=== PATIENT | male | born 1960 | race Caucasian/White ===

== ENCOUNTER → 2016-06-09 | Outpatient (CLI) | payer MEDICARE ==
[2016-06-09 12:50] LABS: ABSOLUTE EOSINOPHILS # (AUTO) 0.2 10^3/uL (0.0-0.6); ABSOLUTE LYMPHOCYTES (AUTO) 1.5 10^3/uL (0.5-4.7); ABSOLUTE MONOCYTES (AUTO) 0.5 10^3/uL (0.1-1.4); ABSOLUTE NEUT (AUTO) 3.8 10^3/uL (1.7-8.2); BASOPHILS % (AUTO) 0.5 % (0-2); EOSINOPHILS % (AUTO) 3.4 % (0-6); HEMATOCRIT 43.8 % (37.9-51.0); HEMOGLOBIN 14.7 g/dL (13.5-17.0); HGB HCT DIFFERENCE 0.3; LYMPHOCYTES % (AUTO) 24.2 % (13-45); MEAN CORPUSCULAR HEMOGLOBIN 28.5 pg (27.0-33.4); MEAN CORPUSCULAR HGB CONC 33.5 g/dL (32.0-36.0); MEAN CORPUSCULAR VOLUME 85 fl (80-97); MONOCYTES % (AUTO) 8.9 % (3-13); RED BLOOD COUNT 5.15 10^6/uL (4.35-5.55); RED CELL DISTRIBUTION WIDTH 13.6 % (11.5-14.0)
[2016-06-09 13:24] LABS: ALANINE AMINOTRANSFERASE 29 U/L (21-72); ALBUMIN 4.5 g/dL (3.5-5.0); ALKALINE PHOSPHATASE 73 U/L (38-126); ANION GAP 14 (5-19); ASPARTATE AMINO TRANSFERASE 25 U/L (17-59); BILIRUBIN,TOTAL 0.8 mg/dL (0.2-1.3); BLOOD UREA NITROGEN 20 mg/dL (7-20); C-REACTIVE PROTEIN < 5.0 mg/L (<10.0); CALCIUM 9.3 mg/dL (8.4-10.2); CARBON DIOXIDE 28 mmol/L (22-30); CHLORIDE 99 mmol/L (98-107); CREATININE RESULT 1.04 mg/dL (0.52-1.25); GLUCOSE 201 mg/dL (75-110); POTASSIUM 4.4 mmol/L (3.6-5.0); SODIUM 141.1 mmol/L (137-145)
[2016-06-09 13:28] LABS: ERYTHROCYTE SEDIMENTATION RATE 24 mm/hr (0-20)
== END ==
LOC: OD 12:02
PROVIDERS: ATTEND Nurse Practitioner Family
DX: Z01.818 Encounter for other preprocedural examination (principal); L97.322 Non-pressure chronic ulcer of left ankle with fat layer exposed
CPT/HCPCS: 36415; 71020; 80053; 85025; 85652; 86140

== ENCOUNTER 2017-05-24 10:05 | Emergency (ER) | payer MEDICARE ==
[2017-05-24 10:19] VITALS: BP 118/67
[2017-05-24] MEDS ORDERED: HYDROCODONE/ACETAMINOPHEN 5-325 MG TABLET ONE (12:13)
--- NOTE | 2017-05-25 09:58 | RADIOLOGY REPORT (SQ) ---
EXAM DESCRIPTION: SHOULDER LEFT 2 OR MORE VIEWS COMPLETED DATE/TIME: 05/25/2017 12:12 am REASON FOR STUDY: FALL, LEFT SHOULDER PAIN COMPARISON: None. NUMBER OF VIEWS: Three views. TECHNIQUE: Internal rotation, external rotation, and Y view images acquired of the left shoulder. LIMITATIONS: None. FINDINGS: MINERALIZATION: Normal. BONES: No acute fracture or dislocation. No worrisome bone lesions. JOINTS: No dislocation. VISUALIZED LUNGS AND RIBS: No pneumothorax. No rib fracture. SOFT TISSUES: No radiopaque foreign body. OTHER: Cardiac pacer. IMPRESSION: NO RADIOGRAPHIC EVIDENCE OF ACUTE INJURY. TECHNICAL DOCUMENTATION: JOB ID: [id number] [employer]- All Rights Reserved
== END 2017-05-24 14:30 | disposition home or self-care (01) ==
LOC: ER 10:05
DX: S43.402A Unspecified sprain of left shoulder joint, initial encounter (principal); W00.0XXA Fall on same level due to ice and snow, initial encounter; Y92.410 Unspecified street and highway as the place of occurrence of the external cause; E11.9 Type 2 diabetes mellitus without complications; I10 Essential (primary) hypertension; I25.2 Old myocardial infarction; Z95.1 Presence of aortocoronary bypass graft
CPT/HCPCS: 99283

== ENCOUNTER 2017-06-10 10:53 | Day surgery (SDC) | payer MEDICARE ==
[~2017-06-10 10:53] MED LIST: KETOROLAC TROMETHAMINE 0.45% 4 DROP/0.4 ML DROPERETTE OD PRN
[2017-06-10] MEDS ORDERED: EPINEPHRINE INJ/PF 1 MG/1 ML AMPULE ONE (11:03)
[2017-06-10] MEDS ORDERED: CHONDR SU A NA/HYALUR INTRAOC KIT (SURGICARE) ONE (11:04)
[2017-06-10] MEDS ORDERED: LIDOCAINE 1% INJ-PF (10 MG/ML) 30 ML SDV ONE (11:04)
[2017-06-10] MEDS: TROPICAMIDE 1% OPH SOLN 3 ML OD PRN ×3 (11:16→11:36)
[2017-06-10] MEDS: BESIFLOXACIN HCL 0.6% OPH SUSP 5 ML BOTTLE OD PRN ×4 (11:16→12:21)
[2017-06-10] MEDS: CYCLOPENTOLATE 0.2%/PHENYLEPHRINE 1% OPH SOLN 2 ML OD PRN ×3 (11:16→11:36)
[2017-06-10] MEDS: TETRACAINE HCL 0.5% OPH SOLN 0.6 ML DROPERETTE OD PRN ×3 (11:17→12:03)
[2017-06-10] MEDS ORDERED: ONDANSETRON HCL INJ/PF 4 MG/2 ML SDV ONE (11:50)
[2017-06-10] MEDS ORDERED: FENTANYL CITRATE INJ/PF 100 MCG/2 ML AMPUL ONE (11:50)
[2017-06-10] MEDS ORDERED: MIDAZOLAM 2 MG/2 ML INJ ONE (11:50)
[2017-06-10] MEDS: TOBRAMYCIN SULFATE/DEXAMETH OPH OINTMENT 3.5 GM ONE ×2 (12:21)
[2017-06-10] MEDS ORDERED: LIDOCAINE 2% INJ-PF (20 MG/ML) 10 ML AMPUL ONE (12:26)
== END 2017-06-10 13:35 | disposition home or self-care (01) ==
LOC: SC 10:53
PROVIDERS: ATTEND Ophthalmology
PROC: 08RJ3JZ Replacement of Right Lens with Synthetic Substitute, Percutaneous Approach (ICD-10-PCS; principal; 2017-06-10 12:00)
DX: H25.11 Age-related nuclear cataract, right eye (principal); I25.10 Atherosclerotic heart disease of native coronary artery without angina pectoris; E11.9 Type 2 diabetes mellitus without complications; I10 Essential (primary) hypertension; E78.00 Pure hypercholesterolemia, unspecified; K21.9 Gastro-esophageal reflux disease without esophagitis; Z79.82 Long term (current) use of aspirin; Z79.84 Long term (current) use of oral hypoglycemic drugs; Z79.4 Long term (current) use of insulin; I25.2 Old myocardial infarction; Z95.810 Presence of automatic (implantable) cardiac defibrillator
CPT/HCPCS: 66984; 82962; V2630; J2250; J3490 ×4; A9270; J0171; J3010; J2405; 142

== ENCOUNTER 2017-06-24 09:28 | Day surgery (SDC) | payer MEDICARE ==
[~2017-06-24 09:28] MED LIST changes: +CHONDR SU A NA/HYALUR INTRAOC KIT (SURGICARE) ONE; +EPINEPHRINE INJ/PF 1 MG/1 ML AMPULE ONE; -KETOROLAC TROMETHAMINE 0.45% 4 DROP/0.4 ML DROPERETTE OD PRN; +KETOROLAC TROMETHAMINE 0.45% 4 DROP/0.4 ML DROPERETTE OS PRN; +LIDOCAINE 1% INJ-PF (10 MG/ML) 30 ML SDV ONE; +TOBRAMYCIN SULFATE/DEXAMETH OPH OINTMENT 3.5 GM ONE
[2017-06-24] MEDS: CYCLOPENTOLATE 0.2%/PHENYLEPHRINE 1% OPH SOLN 2 ML OS PRN ×3 (09:40→10:31)
[2017-06-24] MEDS: TROPICAMIDE 1% OPH SOLN 3 ML OS PRN ×3 (09:40→10:31)
[2017-06-24] MEDS: BESIFLOXACIN HCL 0.6% OPH SUSP 5 ML BOTTLE OS PRN ×3 (09:41→11:13)
[2017-06-24] MEDS: TETRACAINE HCL 0.5% OPH SOLN 0.6 ML DROPERETTE OS PRN ×3 (09:42→10:51)
[2017-06-24] MEDS ORDERED: MIDAZOLAM 2 MG/2 ML INJ ONE ×2 (10:47)
== END 2017-06-24 11:50 | disposition home or self-care (01) ==
LOC: SC 09:28
PROVIDERS: ATTEND Ophthalmology
PROC: 08RK3JZ Replacement of Left Lens with Synthetic Substitute, Percutaneous Approach (ICD-10-PCS; principal; 2017-06-24 10:30)
DX: H25.12 Age-related nuclear cataract, left eye (principal); Z98.41 Cataract extraction status, right eye; I25.10 Atherosclerotic heart disease of native coronary artery without angina pectoris; E78.00 Pure hypercholesterolemia, unspecified; I10 Essential (primary) hypertension; E11.9 Type 2 diabetes mellitus without complications; Z79.82 Long term (current) use of aspirin; Z79.899 Other long term (current) drug therapy; Z79.84 Long term (current) use of oral hypoglycemic drugs; Z79.4 Long term (current) use of insulin
CPT/HCPCS: 66984; 82962; V2630; J2250; J3490 ×3; A9270; J0171; 142

== ENCOUNTER → 2017-08-06 | Day surgery (SDC) | payer MEDICARE ==
--- NOTE | 2017-08-06 15:16 | RADIOLOGY REPORT (SQ) ---
EXAM DESCRIPTION: ARTHRO SHOULDER INJECTION; FLUORO/NEEDLE PLACEMENT COMPLETED DATE/TIME: 08/06/2017 2:42 pm REASON FOR STUDY: INCOMPLETE ROTATOR CUFF TEAR OR RUPTURE, LT SHOULDER (M75.112) M75.112 INCOMPLETE ROTATR-CUFF TEAR/RUPTR OF L SHOULDER, NOT COMPARISON: Left shoulder films 05/24/2017 FLUOROSCOPY TIME: 40 seconds 2 digital radiographic images saved to PACS. LIMITATIONS: None. PROCEDURE: Procedure, risks, benefits and alternatives explained to patient who then gave written co nsent. The posterior left shoulder was marked and a time out was called for correct procedure verific ation. Posterior entry site marked using fluoroscopic guidance. Shoulder prepped and draped using s terile technique. Local anesthesia achieved using 5 mL of 1% lidocaine injection. 22 gauge spinal n eedle introduced into the joint space under direct fluoroscopic visualization. Non-ionic contrast ins tilled to confirm intra-articular position. Dilute Omnipaque 300 solution then injected. Needle sahil cory and entry site covered with sterile bandage. No immediate complications noted. TECHNIQUE: Digital images acquired during fluoroscopy and stored on PACS. Patient immediately take n to the MR suite for additional imaging. INJECTION LOCATION: Posterior left glenohumeral joint CONTRAST TYPE AND AMOUNT: 10 mL of dilute Omnipaque 300 IMPRESSION: SUCCESSFUL NEEDLE PLACEMENT AND INJECTION FOR LEFT SHOULDER CT ARTHROGRAM USING POSTERIO R APPROACH. COMMENT: Patient has a defibrillator Quality ID [id number]: Final reports for procedures using fluoroscopy that document radiation exposure wilda gaston, or exposure time and number of fluorographic images (if radiation exposure indices are not avail able) TECHNICAL DOCUMENTATION: JOB ID: [id number] [employer]- All Rights Reserved Reading location - IP/workstation name: [facility]
--- NOTE | 2017-08-06 15:16 | RADIOLOGY REPORT (SQ) ---
EXAM DESCRIPTION: ARTHRO SHOULDER INJECTION; FLUORO/NEEDLE PLACEMENT COMPLETED DATE/TIME: 08/06/2017 2:42 pm REASON FOR STUDY: INCOMPLETE ROTATOR CUFF TEAR OR RUPTURE, LT SHOULDER (M75.112) M75.112 INCOMPLETE ROTATR-CUFF TEAR/RUPTR OF L SHOULDER, NOT COMPARISON: Left shoulder films 05/24/2017 FLUOROSCOPY TIME: 40 seconds 2 digital radiographic images saved to PACS. LIMITATIONS: None. PROCEDURE: Procedure, risks, benefits and alternatives explained to patient who then gave written co nsent. The posterior left shoulder was marked and a time out was called for correct procedure verific ation. Posterior entry site marked using fluoroscopic guidance. Shoulder prepped and draped using s terile technique. Local anesthesia achieved using 5 mL of 1% lidocaine injection. 22 gauge spinal n eedle introduced into the joint space under direct fluoroscopic visualization. Non-ionic contrast ins tilled to confirm intra-articular position. Dilute Omnipaque 300 solution then injected. Needle sahil cory and entry site covered with sterile bandage. No immediate complications noted. TECHNIQUE: Digital images acquired during fluoroscopy and stored on PACS. Patient immediately take n to the MR suite for additional imaging. INJECTION LOCATION: Posterior left glenohumeral joint CONTRAST TYPE AND AMOUNT: 10 mL of dilute Omnipaque 300 IMPRESSION: SUCCESSFUL NEEDLE PLACEMENT AND INJECTION FOR LEFT SHOULDER CT ARTHROGRAM USING POSTERIO R APPROACH. COMMENT: Patient has a defibrillator Quality ID [id number]: Final reports for procedures using fluoroscopy that document radiation exposure wilda gaston, or exposure time and number of fluorographic images (if radiation exposure indices are not avail able) TECHNICAL DOCUMENTATION: JOB ID: [id number] [employer]- All Rights Reserved Reading location - IP/workstation name: [facility]
--- NOTE | 2017-08-06 15:31 | RADIOLOGY REPORT (SQ) ---
EXAM DESCRIPTION: CT LT UPPER EXTREMITY WITH COMPLETED DATE/TIME: 08/06/2017 2:48 pm REASON FOR STUDY: INCOMPLETE ROTATOR CUFF TEAR OR RUPTURE, LT SHOULDER (M75.112) M75.112 INCOMPLETE ROTATR-CUFF TEAR/RUPTR OF L SHOULDER, NOT COMPARISON: None. TECHNIQUE: Axial imaging performed through the leftshoulder with reformatted oblique coronal and obl ique sagittal imaging windowed for bone and soft tissues. All CT scanners at this facility use dose modulation, iterative reconstruction, and/or weight based d osing when appropriate to reduce radiation dose to as low as reasonably achievable (ALARA). [facility]: Dose Right [facility]: CareDose [facility]: Dose Right [facility]: Teradose 4D [facility]: [place] [employer] RADIATION DOSE: CT Rad equipment meets quality standard of care and radiation dose reduction techniq ues were employed. CTDIvol: 24.4 mGy. DLP: 600 mGy-cm. mGy. LIMITATIONS: None. FINDINGS: SOFT TISSUES: No masses or adenopathy BONY ARCHITECTURE: No fracture. No lytic or blastic lesions. Bones are osteopenic. GLENOHUMERAL JOINT: No malalignment. Mild chondromalacia with humeral head bony spurring. ACROMION AND AC JOINT: Type 2 acromion. Mild acromioclavicular joint bony spurring. ROTATOR CUFF: There is a small full-thickness tear along the anterior edge supraspinatus tendon, allo wing intra-articular contrast to spread into the subacromial/ subdeltoid bursa. Anterior edge supras pinatus tendon tear is best shown on coronal images 19-26.Infraspinatus, subscapularis are intact. GLENOID, LABRUM AND BICEPS: Intra-articular long head biceps tendon is intact. No gross labral tear or paralabral cyst. OTHER: No other significant finding. IMPRESSION: Small full-thickness tear anterior attachment, supraspinatus tendon TECHNICAL DOCUMENTATION: JOB ID: [id number] Quality ID # [id number]: Final reports with documentation of one or more dose reduction techniques (e.g., Au tomated exposure control, adjustment of the mA and/or kV according to patient size, use of iterative reconstruction technique) 2010 [employer]- All Rights Reserved Reading location - IP/workstation name: [facility]
== END ==
LOC: RAD 13:05
PROVIDERS: ATTEND Orthopaedic Surgery
DX: M75.112 Incomplete rotator cuff tear or rupture of left shoulder, not specified as traumatic (principal)
CPT/HCPCS: 23350; 77002

== ENCOUNTER 2018-05-27 11:13 | Inpatient (IN) | payer MEDICARE ==
--- NOTE | 2018-05-27 11:34 | ER Document Report ---
ED Medical Screen (RME) - General Chief Complaint: Abnormal Lab Results Stated Complaint: ABNORMAL LABS Time Seen by Provider: 05/27/18 11:29 Notes: 57 years old male presents today with right foot redness swelling the last few days. With a history of diabetes. Cellulitis of the right foot TRAVEL OUTSIDE OF THE [place] IN LAST 30 DAYS: No - Related Data Allergies/Adverse Reactions: No Known Allergies Allergy (Verified 05/27/18 11:15) Past Medical History - Past Medical History Cardiac Medical History: Reports: Hx Coronary Artery Disease, Hx Heart Attack - 2007, TRIPLE BYPASS, DEFIB PLACEMENT 2014, Hx Hypercholesterolemia, Hx Hypertension - MEDICATED Pulmonary Medical History: Denies: Hx Asthma, Hx Bronchitis, Hx COPD, Hx Pneumonia Neurological Medical History: Denies: Hx Cerebrovascular Accident, Hx Seizures Endocrine Medical History: Reports: Hx Diabetes Mellitus Type 2 - metformin GI Medical History: Denies: Hx Hepatitis, Hx Hiatal Hernia, Hx Ulcer Musculoskeltal Medical History: Denies Hx Arthritis Psychiatric Medical History: Reports: Hx Depression Infectious Medical History: Denies: Hx Hepatitis Past Surgical History: Reports: Hx Cardiac Catheterization - CABG, Hx Cardiac Surgery - open heart - triple bypass 2007, Hx Coronary Artery Bypass Graft, Hx Open Heart Surgery - 11/2007, Hx Orthopedic Surgery - left hand. Denies: Hx Pacemaker - Immunizations Hx Diphtheria, Pertussis, Tetanus Vaccination: Yes - 2015 Physical Exam - Vital signs Vitals: Temp Pulse Resp BP Pulse Ox 99.2 F 79 16 100/60 100 05/27/18 11:18 05/27/18 11:18 05/27/18 11:18 05/27/18 11:18 05/27/18 11:18 Course - Vital Signs Vital signs: Temp Pulse Resp BP Pulse Ox 99.2 F 79 16 100/60 100 05/27/18 11:18 05/27/18 11:18 05/27/18 11:18 05/27/18 11:18 05/27/18 11:18 Doctor's Discharge - Discharge Referrals: ROMINA NICOLE MD [Primary Care Provider] - Follow up as needed
--- NOTE | 2018-05-27 12:16 | RADIOLOGY REPORT (SQ) ---
EXAM DESCRIPTION: FOOT RIGHT COMPLETE COMPLETED DATE/TIME: 05/27/2018 11:59 am REASON FOR STUDY: Osteomyelitis COMPARISON: None. NUMBER OF VIEWS: Three views. TECHNIQUE: AP, lateral and oblique radiographic images acquired of the right foot. LIMITATIONS: None. FINDINGS: Periarticular subchondral cyst formation talonavicular joint, intertarsal and tarsometatar steven joints. No active periosteal reaction or foreign body. Diffuse swelling. 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 No obvious osteomyelitis. TECHNICAL DOCUMENTATION: JOB ID: [id number] [employer] All Rights Reserved Reading location - IP/workstation name: [email or web address]
[2018-05-27 13:00] LABS: ABSOLUTE EOSINOPHILS # (AUTO) 0.1 10^3/uL (0.0-0.6); ABSOLUTE LYMPHOCYTES (AUTO) 1.1 10^3/uL (0.5-4.7); ABSOLUTE MONOCYTES (AUTO) 0.8 10^3/uL (0.1-1.4); ABSOLUTE NEUT (AUTO) 7.6 10^3/uL (1.7-8.2); BASOPHILS % (AUTO) 0.4 % (0-2); EOSINOPHILS % (AUTO) 0.7 % (0-6); HEMATOCRIT 41.5 % (37.9-51.0); HEMOGLOBIN 14.4 g/dL (13.5-17.0); LYMPHOCYTES % (AUTO) 11.5 % (13-45); MEAN CORPUSCULAR HEMOGLOBIN 29.6 pg (27.0-33.4); MEAN CORPUSCULAR HGB CONC 34.6 g/dL (32.0-36.0); MEAN CORPUSCULAR VOLUME 86 fl (80-97); MONOCYTES % (AUTO) 8.4 % (3-13); PLATELET COUNT 259 10^3/uL (150-450); RED BLOOD COUNT 4.85 10^6/uL (4.35-5.55); RED CELL DISTRIBUTION WIDTH 13.4 % (11.5-14.0); TOTAL CELLS COUNTED % (AUTO) 100 %; WHITE BLOOD COUNT 9.6 10^3/uL (4.0-10.5)
[2018-05-27 13:26] LABS: ALANINE AMINOTRANSFERASE 19 U/L (21-72); ALBUMIN 3.8 g/dL (3.5-5.0); ALKALINE PHOSPHATASE 91 U/L (38-126); ANION GAP 11 (5-19); ASPARTATE AMINO TRANSFERASE 16 U/L (17-59); BILIRUBIN,DIRECT 0.2 mg/dL (0.0-0.4); BILIRUBIN,TOTAL 0.8 mg/dL (0.2-1.3); BLOOD UREA NITROGEN 22 mg/dL (7-20); CARBON DIOXIDE 27 mmol/L (22-30); CHLORIDE 96 mmol/L (98-107); GLUCOSE 239 mg/dL (75-110); POTASSIUM 4.3 mmol/L (3.6-5.0); SODIUM 134.1 mmol/L (137-145); TOTAL PROTEIN 6.4 g/dL (6.3-8.2)
--- NOTE | 2018-05-27 14:36 | ER Document Report ---
ED Extremity Problem, Lower - General Chief Complaint: Abnormal Lab Results Stated Complaint: ABNORMAL LABS Time Seen by Provider: 05/27/18 11:29 Notes: Patient is an insulin-dependent diabetic was referred here for an infection in his right foot. 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 During the week, his foot has swollen and he has developed a blister on the top of the toe which is opened and drained. He went to a local clinic yesterday and was given a gram of Rocephin IM and put on Bactrim DS which he took yesterday twice, as prescribed. He went back to the same clinic this morning and had another injection of Rocephin 1 g IM but was advised to come here because the wound does not appear to be showing any healing with outpatient treatment. TRAVEL OUTSIDE OF THE [place] IN LAST 30 DAYS: No - Related Data Allergies/Adverse Reactions: No Known Allergies Allergy (Verified 05/27/18 11:15) Past Medical History - Social History Smoking Status: Former Smoker Chew tobacco use (# tins/day): No Frequency of alcohol use: None Drug Abuse: None Family History: Reviewed & Not Pertinent, CAD Patient has suicidal ideation: No Patient has homicidal ideation: No - Past Medical History Cardiac Medical History: Reports: Hx Coronary Artery Disease, Hx Heart Attack - 2007, TRIPLE BYPASS, DEFIB PLACEMENT 2014, Hx Hypercholesterolemia, Hx Hypertension - MEDICATED, Other - Defibrillator Endocrine Medical History: Reports: Hx Diabetes Mellitus Type 1, Hx Diabetes Mellitus Type 2 - metformin Musculoskeletal Medical History: Denies Hx Arthritis Psychiatric Medical History: Reports: Hx Depression Infectious Medical History: Denies: Hx Hepatitis Past Surgical History: Reports: Hx Cardiac Catheterization - CABG, Hx Cardiac Surgery - open heart - triple bypass 2007, Hx Coronary Artery Bypass Graft, Hx Open Heart Surgery - 11/2007, Hx Orthopedic Surgery - left hand. Denies: Hx Pacemaker - Immunizations Hx Diphtheria, Pertussis, Tetanus Vaccination: Yes - 2015 Review of Systems - Review of Systems Notes: REVIEW OF SYSTEMS: CONSTITUTIONAL : Denies fever. EENT: Denies eye, ear, nose or mouth or throat pain or other symptoms. CARDIOVASCULAR: Denies chest pain. RESPIRATORY: Has had some cough recently. Not much congestion or shortness of breath. GASTROINTESTINAL: Denies abdominal pain or nausea, vomiting, or diarrhea. GENITOURINARY: Denies difficulty or painful urinating, urinary frequency, blood in urine. MUSCULOSKELETAL: Denies back or neck pain. Denies joint pain or swelling. See HPI. SKIN: Denies rash or skin lesions. See HPI. NEUROLOGICAL: Denies LOC or altered mental status. Denies headache. Denies sensory loss or motor deficits. ALL OTHER SYSTEMS REVIEWED AND NEGATIVE. Physical Exam - Vital signs Vitals: Temp Pulse Resp BP Pulse Ox 99.2 F 79 16 100/60 100 05/27/18 11:18 05/27/18 11:18 05/27/18 11:18 05/27/18 11:18 05/27/18 11:18 Interpretation: Normal Notes: PHYSICAL EXAMINATION: GENERAL: Well-appearing, in no acute distress. HEAD: Atraumatic, normocephalic. EYES: Pupils equal round and reactive to light, extraocular movements intact. NECK: Normal range of motion, supple. LUNGS: Breath sounds clear and equal bilaterally. HEART: Regular rate and rhythm without murmurs. ABDOMEN: Soft, nontender. No guarding or rebound. No masses. BACK: No tenderness throughout entire back. EXTREMITIES: Normal range of motion without pain. Patient has swollen right foot, primarily over the lateral half. It is erythematous and warm to the touch. Over the proximal fifth toe of the right foot the patient has a 3 cm denuded area that is oozing liquid. Patient says he has no feeling in his lower extremities due to his peripheral neuropathy. Flat-footed appearance to the right foot. Patient says this is been that way his entire life. However he does describe having been given specific boots to wear to improve his arch in that foot. NEUROLOGICAL: Normal speech, gait not tested. Normal sensory, motor, and reflex exams. Awake, alert, and oriented x3. Cranial nerves normal. PSYCH: Normal mood, normal affect. SKIN: Warm, dry, no rashes. Course - Re-evaluation Re-evalutation: 05/27/18 14:43 Discussed case with hospitalist who will admit the patient for more intensive care of this foot cellulitis. - Vital Signs Vital signs: Temp Pulse Resp BP Pulse Ox 99.2 F 79 16 100/60 100 05/27/18 11:18 05/27/18 11:18 05/27/18 11:18 05/27/18 11:18 05/27/18 11:18 - Laboratory Result Diagrams: 05/27/18 12:13 05/27/18 12:13 Laboratory results interpreted by me: 05/27/18 05/27/18 12:13 12:13 Seg Neutrophils % 79.0 H Lymphocytes % 11.5 L Sodium 134.1 L Chloride 96 L BUN 22 H Creatinine 1.37 H Est GFR (Non-Af Amer) 53 L Glucose 239 H AST 16 L ALT 19 L - Diagnostic Test Radiology results interpreted by me: 05/27/18 14:43 X-ray shows no evidence of osteomyelitis. Discharge - Discharge Clinical Impression: Cellulitis of right foot Condition: Stable Disposition: ADMITTED INPATIENT Admitting Provider: Hospitalist Unit Admitted: Medical Floor Referrals: ROMINA NICOLE MD [Primary Care Provider] - Follow up as needed
[2018-05-27] MEDS ORDERED: MAGNESIUM HYDROXIDE SUSP 30 ML UDCUP PO PRN (14:40)
[2018-05-27] MEDS ORDERED: MAG HYDROX/AL HYDROX/SIMETH SUSP 30 ML UDCUP PO PRN (14:40)
[2018-05-27] MEDS ORDERED: DEXTROSE 40% GEL 15 GM TUBE PO PRN ×2 (15:29)
[2018-05-27] MEDS ORDERED: DEXTROSE 50%-WATER 25 GM/50 ML DISP.SYRIN IV PRN ×2 (15:29)
[2018-05-27] MEDS ORDERED: GLUCAGON,HUMAN RECOMB 1 MG INJ IM PRN (15:29)
[2018-05-27] MEDS ORDERED: VANCOMYCIN HCL 0 MG in DEXTROSE 5%-WATER 250 ML IV NR (15:30)
[2018-05-27] MEDS ORDERED: GUAIFENESIN 600 MG TABLET.SA PO ONE (16:15)
[2018-05-27] MEDS: PIPERACILLIN SODIUM/TAZOBACTAM 4.5 GM in NORMAL SALINE 100 ML IV SCH ×2 (16:31→20:55)
--- NOTE | 2018-05-27 16:37 | RADIOLOGY REPORT (SQ) ---
EXAM DESCRIPTION: CHEST 2 VIEWS COMPLETED DATE/TIME: 05/27/2018 4:23 pm REASON FOR STUDY: Cough, sputum, dyspnea COMPARISON: 05/16/2016. EXAM PARAMETERS: NUMBER OF VIEWS: two views TECHNIQUE: Digital Frontal and Lateral radiographic views of the chest acquired. RADIATION DOSE: NA LIMITATIONS: none FINDINGS: LUNGS AND PLEURA: No opacities, masses or pneumothorax. No pleural effusion. MEDIASTINUM AND HILAR STRUCTURES: No masses or contour abnormalities. HEART AND VASCULAR STRUCTURES: Heart normal size. No evidence for failure. BONES: No acute findings. HARDWARE: Sternotomy wires, coronary bypass marker, defibrillator. OTHER: No other significant finding. IMPRESSION: NO ACUTE RADIOGRAPHIC FINDING IN THE CHEST. TECHNICAL DOCUMENTATION: JOB ID: [id number] [employer] All Rights Reserved Reading location - IP/workstation name: [email or web address]
--- NOTE | 2018-05-27 17:26 | PDOC CONSULTATION ---
History of Present Illness Admission Date/PCP: 05/27/18 15:01 ROMINA NICOLE MD Patient complains of: Swelling of his right foot History of Present Illness: KYLIE ROBERSON III is a 57 year old male with diabetes and diabetic neuropathy who dropped a heavy object on the right fifth toe region about a week ago with resultant swelling and discoloration. Patient had a blister that popped with some drainage of blood today and he subsequently came in for further evaluation. Patient denies any fever denies any purulent drainage. He does not have much sensation in his right foot and therefore he does not have pain. His past medical history is remarkable for coronary artery disease status post coronary artery bypass grafting about 10 years ago. He also has a defibrillator in place. He had a myocardial infarction prior to his coronary artery surgery but has done well since his surgery. He has had a left ankle ulcer in the past that subsequently healed. Past Medical History Cardiac Medical History: Reports: Coronary Artery Disease, Myocardial Infarction - 2007, TRIPLE BYPASS, DEFIB PLACEMENT 2014, Hyperlipidema, Hypertension - MEDICATED, Other - Defibrillator Pulmonary Medical History: Denies: Asthma, Bronchitis, Chronic Obstructive Pulmonary Disease (COPD), Pneumonia Neurological Medical History: Denies: Seizures Endocrine Medical History: Reports: Diabetes Mellitus Type 1, Diabetes Mellitus Type 2 - metformin GI Medical History: Denies: Hepatitis, Hiatal Hernia Musculoskeltal Medical History: Denies: Arthritis Psychiatric Medical History: Reports: Depression Hematology: Denies: Anemia, Sickle Cell Disease Past Surgical History Past Surgical History: Reports: Cardiac Catheterization - CABG, Coronary Artery Bypass Graft, Orthopedic Surgery - left hand Denies: Pacemaker Social History Smoking Status: Former Smoker Frequency of Alcohol Use: Rare Hx Recreational Drug Use: No Hx Prescription Drug Abuse: No Family History Family History: Reviewed & Not Pertinent, CAD Parental Family History Reviewed: Yes - Diabetes and breast cancer Children Family History Reviewed: Yes Sibling(s) Family History Reviewed.: Yes Medication/Allergy Home Medications: Carvedilol [Coreg 12.5 mg Tablet] 12.5 mg PO DAILY 05/27/18 Gabapentin [Neurontin] 600 mg PO Q12 05/27/18 Glyburide [Diabeta 5 mg Tablet] 5 mg PO BIDACBS 05/27/18 Insulin Degludec [Tresiba Flextouch U-100] 10 units SQ DAILY 05/27/18 Insulin Glargine,Hum.rec.anlog [Lantus Insulin 100 Unit/mL] 50 unit SQ QHS 05/27/18 Lisinopril [Prinivil 2.5 mg Tablet] 2.5 mg PO DAILY 05/27/18 Metformin HCl [Glucophage 500 mg Tablet] 500 mg PO DAILY@1200 05/27/18 Ranolazine [Ranexa 500 mg Tab.sr] 500 mg PO Q12 05/27/18 Allergies/Adverse Reactions: No Known Allergies Allergy (Verified 05/27/18 11:15) Review of Systems All systems: reviewed and no additional remarkable complaints except as stated Musculoskeletal: PRESENT: as per HPI Physical Exam Vital Signs: Temp Pulse Resp BP Pulse Ox 99.3 F 78 16 133/75 H 99 05/27/18 15:13 05/27/18 15:13 05/27/18 11:18 05/27/18 15:13 05/27/18 15:13 Intake & Output 05/26/18 05/27/18 05/28/18 06:59 06:59 06:59 Weight 112 kg General appearance: PRESENT: no acute distress, cooperative Eye exam: PRESENT: conjunctiva pink Respiratory exam: PRESENT: clear to auscultation linda Cardiovascular exam: PRESENT: RRR GI/Abdominal exam: PRESENT: other - Soft, nondistended nontender to palpation Extremities exam: PRESENT: other - Right leg at the distal lateral aspect with a diffuse erythema but no fluctuance. At the dorsal base of his right fifth toe there is a 2 x 2 centimeter of partial thickness skin denudement with some discoloration of the dermis. I believe that the dermis is viable. There is no underlying fluctuance. There is no drainage. There is no crepitus. there is diffuse swelling of the distal lateral right foot. Neurological exam: PRESENT: alert, awake Psychiatric exam: PRESENT: appropriate affect Results Laboratory Results: 05/27/18 12:13 05/27/18 12:13 05/27/18 05/27/18 12:13 12:13 WBC 9.6 RBC 4.85 Hgb 14.4 Hct 41.5 MCV 86 MCH 29.6 MCHC 34.6 RDW 13.4 Plt Count 259 Seg Neutrophils % 79.0 H Lymphocytes % 11.5 L Monocytes % 8.4 Eosinophils % 0.7 Basophils % 0.4 Absolute Neutrophils 7.6 Absolute Lymphocytes 1.1 Absolute Monocytes 0.8 Absolute Eosinophils 0.1 Absolute Basophils 0.0 Sodium 134.1 L Potassium 4.3 Chloride 96 L Carbon Dioxide 27 Anion Gap 11 BUN 22 H Creatinine 1.37 H Est GFR ( Amer) > 60 Est GFR (Non-Af Amer) 53 L Glucose 239 H Calcium 9.0 Total Bilirubin 0.8 AST 16 L ALT 19 L Alkaline Phosphatase 91 Total Protein 6.4 Albumin 3.8 Impressions: Chest X-Ray 05/27/18 00:00 IMPRESSION: NO ACUTE RADIOGRAPHIC FINDING IN THE CHEST. Foot X-Ray 05/27/18 11:33 IMPRESSION: Suspected neuropathic joint. No obvious osteomyelitis. Assessment & Plan - Diagnosis (1) Cellulitis of right foot Is this a current diagnosis for this admission?: Yes Plan: Status post trauma to the distal lateral aspect of the right foot about a week ago. There is partial thickness skin loss at the base of his right fifth toe but I believe that the dermis is viable and I do not see evidence of a underlying abscess. I do not see an indication for surgical debridement at this time. I recommend treatment with antibiotics and local wound care with Xeroform. Surgicalist service will follow along.
[2018-05-27] MEDS: GLYBURIDE 5 MG TABLET PO SCH (17:30)
[2018-05-27] MEDS: VANCOMYCIN HCL 1,500 MG in DEXTROSE 5%-WATER 250 ML IV SCH (18:14)
[2018-05-27] MEDS: DOCUSATE SODIUM 100 MG CAPSULE PO SCH (18:15)
[2018-05-27] MEDS: INSULIN REG, HUMAN 100 UNIT/ML 3 ML VIAL (PYX) SUBCUT PRN (18:22)
[2018-05-27] MEDS: BENZONATATE 100 MG CAPSULE PO PRN (18:23)
[2018-05-27] MEDS: FLUTICASONE NASAL SPRAY 50 MCG/SPRY 120 SPRAY/16 GM NASL SCH (21:02)
[2018-05-27] MEDS: HEPARIN SOD (PORCINE) 5,000 UNIT/ML 1 ML SYRINGE SUBCUT SCH (21:03)
[2018-05-27] MEDS: GUAIFENESIN 600 MG TABLET.SA PO SCH (21:04)
[2018-05-27] MEDS: RANOLAZINE 500 MG TAB.SR.12H PO SCH (21:15)
[2018-05-27] MEDS: GABAPENTIN 300 MG CAPSULE PO SCH (21:15)
[2018-05-27] MEDS: INSULIN GLARGINE,HUM.REC.ANLOG 1,000 UNIT/10 ML UNIT SUBCUT SCH (21:16)
[2018-05-27] MEDS ORDERED: INSULIN GLARGINE,HUM.REC.ANLOG 300 UNIT/3 ML INSULN.PEN SUBCUT SCH (22:00)
[2018-05-28] MEDS: INSULIN REG, HUMAN 100 UNIT/ML 3 ML VIAL (PYX) SUBCUT PRN (00:27)
[2018-05-28] MEDS: PIPERACILLIN SODIUM/TAZOBACTAM 4.5 GM in NORMAL SALINE 100 ML IV SCH ×4 (03:52→20:54)
[2018-05-28] MEDS: VANCOMYCIN HCL 1,500 MG in DEXTROSE 5%-WATER 250 ML IV SCH ×2 (05:53→19:27)
[2018-05-28] MEDS: HEPARIN SOD (PORCINE) 5,000 UNIT/ML 1 ML SYRINGE SUBCUT SCH ×3 (05:53→21:02)
--- NOTE | 2018-05-28 07:22 | HISTORY AND PHYSICAL E ---
History and Physical NAME: KYLIE ROBERSON III : 1960 AGE: 57Y ADMITTED: 05/27/2018 ROOM: PRIMARY CARE PROVIDER: Gennaro Gilliam M.D. CHIEF COMPLAINT: Right foot ulceration. HISTORY OF PRESENT ILLNESS: The patient is a 57-year-old male with the past medical history of insulin-dependent diabetes mellitus type 2 with poor control. The patient presented to the Emergency Department with the chief complaint of infection of his right foot. 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 During the week the foot is swollen and has gotten very red, developed a blister on the top of the toe, which was opened and drained. The patient went to the local clinic yesterday and was given 1 g of Rocephin IM and put on Bactrim DS, which he took twice as prescribed. The patient went back to the same clinic this morning and received a second IM of Rocephin but was advised to come to the Emergency Department because he does not appear to show any evidence of healing. The patient actually has some streaking up above the ankle. While in the Emergency Department the patient was found to have a low grade temp of 99.3. He was normotensive. He was not found to be tachycardic. The patient was found to have a slightly elevated creatinine at 1.37, which is abnormal for him. The patient did not have an impressive white count. No evidence of osteo However, given the clinical presentation of this foot he has been referred to the hospital for admission and management. PAST MEDICAL HISTORY: Remarkable for: 1. Coronary artery disease with myocardial infarction in 2007. 2. Hyperlipidemia. 3. Hypertension. 4. Diabetes mellitus type 2. 5. History of multiple lower extremity wounds. PAST SURGICAL HISTORY: 1. Cardiac catheterization. 2. Coronary artery bypass grafting. 3. Orthopedic surgery of the left hand. 4. Debridement of left ankle abscess. 5. Left shoulder arthroscopy rotator cuff repair. 6. ICD placement. ALLERGIES: No known drug allergies. HOME MEDICATIONS: 1. Coreg 12.5 mg p.o. daily. 2. Neurontin 600 mg p.o. q.12 hours. 3. Glimepiride 5 mg p.o. b.i.d. 4. Lantus 50 units subcu at bedtime. 5. Tresiba 10 units subcu daily. 6. Lisinopril 2.5 mg p.o. daily. 7. Metformin 500 mg p.o. daily. 8. Ranexa 500 mg p.o. q.12 hours. SOCIAL HISTORY: The patient currently resides at home. He is disabled. 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 The patient's , Ida, is his default surrogate decision maker who is present at the bedside and active in the patient's care. The patient does have a history of smoking; quit smoking a couple of years ago. The patient denies any alcohol, no illicit drug use. FAMILY MEDICAL HISTORY: The patient's parents are . He feels his father had coronary artery disease and possibly his mother as well. The patient does have siblings also with coronary artery disease. The patient does have children, all of which are healthy. REVIEW OF SYSTEMS: CONSTITUTIONAL: The patient denies any dizziness, weakness. The patient does admit to fevers, chills and episodes of diaphoresis. No change in appetite. INTEGUMENTARY: No rashes, bruising, itching. HEENT: Denies any vision change, hearing loss, nasal drainage or sore throat. No headaches. CVS: Denies any chest pain, edema, heart palpitation. RESPIRATORY: The patient admits to a cough with some whitish sputum production, but denies any hemoptysis. GI: No nausea, vomiting, diarrhea, abdominal pain, bloody emesis, constipation, melena, hematochezia. : Denies hematuria, pyuria, or dysuria. MUSCULOSKELETAL: The patient denies any specific joint pain. NEUROLOGIC: No seizures, tremors, or loss of consciousness. HEMATOLOGICAL: Denies any cristina bleeding or easy bruising. ENDOCRINE: The patient denies any recent weight changes. He feels he has decent glycemic control. PSYCHIATRIC: Denies suicidal or homicidal ideations. The rest of the review of the other organ systems is negative. PHYSICAL EXAMINATION: GENERAL: On examination the patient is a well-developed, well-nourished, very pleasant 57-year-old male who is awake, alert. He is oriented to person, place, time, situation. He is verbal and conversational, and does not appear to be in any acute distress. VITAL SIGNS: Temperature is 99.3, pulse 78, respirations 16, blood pressure 133/75, oxygen saturation is 99% on room air. SKIN: Warm and dry. No rashes. He is not diaphoretic. HEENT: Pupils are equal, round and reactive to light and accommodation. Conjunctivae are pink. Sclerae are nonicteric. There are no mouth lesions. Tongue is midline. NECK: Supple. No JVD. No palpable lymphadenopathy or thyromegaly. CVS: Heart is regular. There is no murmur or rub. CHEST: Clear, symmetrical, unlabored. ABDOMEN: Soft, nontender, nondistended. Bowel sounds are present. No palpable organomegaly. BACK: No CVA tenderness or sacral edema. EXTREMITIES: No clubbing, cyanosis. The patient does have edema of the right lower extremity, redness, diffuse cellulitis throughout the foot which has streaked up to the ankle. The patient does have a denuded area. Please refer to pictures. All four extremities are appropriately warm to the touch with good capillary refill. No peripheral signs of embolization. PSYCHIATRIC: Appropriate affect, pleasant mood. DIAGNOSTICS: Lab values are as follows - Hematology obtained on 05/27/2018: WBC is 9.6, hemoglobin is 14.4, hematocrit is 41.5, platelet count is 254,000. Chemistry done on 05/27/2018: sodium 134, potassium 4.3, glucose 96, calcium 17, BUN 26, creatinine 1.37, glucose 239, calcium is 9.0, bilirubin is 0.8, AST is 16, ALT is 19, alkaline phosphatase 91, total protein 6.4, albumin 3.8. Blood cultures obtained on 05/27/2018: Pending. Foot x-ray obtained on 05/27/2018 reveals neuropathic joint with no obvious osteomyelitis. IMPRESSION/PLAN: 1. Cellulitis of the right foot. We will cover the patient with broad-spectrum antibiotic coverage including anaerobes given that the patient is diabetic. Additionally we will consult surgery to see if this does need an area of debridement given the severity of this foot finding. 2. Diabetes mellitus type 2. We will resume the patient's home medications, as well as sliding-scale coverage and obtain an A1c. 3. Coronary artery disease. We will continue the patient's home medications. 4. Possible bronchitis. The patient does give symptoms of such. We will obtain a chest x-ray to ensure we are not missing anything and start the patient on Flonase, as well as Zyrtec and Mucinex. CODE STATUS: The patient is a full code. DISPOSITION: Depending on patient's symptomatology and diagnostic findings. We will reevaluate in the a.m. We will admit the patient to inpatient medical as the patient's expected length of stay should surpass 2 midnights given his need for IV antibiotics and surgical evaluation. TIME SPENT: On this admission including assessment and plan, physical examination, patient education, review of records, family meeting and specialty collaboration is 70 minutes. DICTATING PHYSICIAN: JULIA FRANCOIS NP [id number] PHY#: [id number] ID: [id number] JOB#: [id number] ACCT: [id number] cc: > MTDD
--- NOTE | 2018-05-28 09:30 | Operative Report ---
Bedside Procedure - History of Present Illness Indication for Procedure: right diabetic foot infection Surgeon: SOUTH LYONS - Incision and Drainage Right Toe 5th digit Anesthetic type: Other Blade size: 11 I&D procedure: Betadine prep applied, Chlorprep applied Incision Method: Incision made by scalpel Amount/type of drainage: 5cc pus Notes: 05/28/18 09:29 necrotic tissue noted deep will schedule for operative debridement and possible 4th and 5th toe amputation
[2018-05-28] MEDS ORDERED: DEXTROSE 40% GEL 15 GM TUBE PO PRN ×2 (09:36)
[2018-05-28] MEDS ORDERED: GLUCAGON,HUMAN RECOMB 1 MG INJ SUBCUT PRN (09:36)
[2018-05-28] MEDS ORDERED: DEXTROSE 50%-WATER 25 GM/50 ML DISP.SYRIN IV PRN ×2 (09:36)
[2018-05-28] MEDS ORDERED: (PENDING PHARMACY ID) (Lisinopril [Prinivil 2.5 Mg Tablet] 2.5 MG) PO SCH (10:00)
[2018-05-28] MEDS: CARVEDILOL 12.5 MG TABLET PO SCH (10:30)
--- NOTE | 2018-05-28 12:19 | EKG REPORT ---
SEVERITY:- ABNORMAL ECG - SINUS RHYTHM INCOMPLETE RIGHT BUNDLE BRANCH BLOCK PROBABLE INFERIOR INFARCT, AGE INDETERMINATE : Confirmed by: Vince Kulkarni MD 28-May-2018 12:18:37
[2018-05-28] MEDS ORDERED: NORMAL SALINE 1000 ML 1,000 ML IV PRN (13:24)
[2018-05-28] MEDS: DOCUSATE SODIUM 100 MG CAPSULE PO SCH ×2 (13:45→20:26)
[2018-05-28] MEDS: GLYBURIDE 5 MG TABLET PO SCH ×2 (13:45→20:26)
[2018-05-28] MEDS: LISINOPRIL 5 MG TABLET PO SCH (13:45)
[2018-05-28] MEDS: GUAIFENESIN 600 MG TABLET.SA PO SCH ×2 (13:45→21:01)
[2018-05-28] MEDS: GABAPENTIN 300 MG CAPSULE PO SCH ×2 (13:45→21:01)
[2018-05-28] MEDS: RANOLAZINE 500 MG TAB.SR.12H PO SCH ×2 (13:46→21:02)
[2018-05-28] MEDS: CETIRIZINE 10 MG TABLET PO SCH (13:46)
[2018-05-28] MEDS: METFORMIN HCL 500 MG TABLET PO SCH (13:46)
[2018-05-28] MEDS: FLUTICASONE NASAL SPRAY 50 MCG/SPRY 120 SPRAY/16 GM NASL SCH ×2 (13:49→21:00)
[2018-05-28] MEDS ORDERED: FENTANYL CITRATE INJ/PF 100 MCG/2 ML AMPUL ONE ×2 (16:29→16:59)
[2018-05-28] MEDS ORDERED: PROPOFOL INJ 200 MG/20 ML VIAL IV ONE ×2 (16:29→17:00)
[2018-05-28] MEDS ORDERED: MIDAZOLAM 2 MG/2 ML INJ ONE ×2 (16:29→17:00)
[2018-05-28] MEDS ORDERED: LIDOCAINE 2% INJ-PF (20 MG/ML) 10 ML AMPUL ONE (16:29)
[2018-05-28] MEDS ORDERED: KETAMINE HCL INJ 500 MG/10 ML VIAL ONE (16:59)
[2018-05-28] MEDS ORDERED: ONDANSETRON HCL INJ/PF 4 MG/2 ML SDV ONE (17:00)
[2018-05-28] MEDS ORDERED: LIDOCAINE 1% INJ-PF (10 MG/ML) 30 ML SDV ONE (17:25)
[2018-05-28] MEDS ORDERED: MORPHINE SULFATE 10 MG/ML INJ IV PRN (17:29)
[2018-05-28] MEDS ORDERED: ONDANSETRON HCL INJ/PF 4 MG/2 ML SDV IV PRN (17:29)
[2018-05-28] MEDS ORDERED: MEPERIDINE HCL/PF INJ 25 MG/1 ML DISP.SYRIN IV PRN (17:29)
[2018-05-28] MEDS ORDERED: FENTANYL CITRATE INJ/PF 100 MCG/2 ML AMPUL IV PRN ×3 (17:29)
[2018-05-28] MEDS ORDERED: DIPHENHYDRAMINE HCL 50 MG/ML VIAL IV PRN (17:29)
[2018-05-28] MEDS ORDERED: PROMETHAZINE HCL INJ 25 MG/1 ML VIAL IV PRN ×2 (17:29)
--- NOTE | 2018-05-28 18:34 | Operative Report ---
Operative Report DATE OF SURGERY: 05/28/18 PREOPERATIVE DIAGNOSIS: rt 5th toe infecton POSTOPERATIVE DIAGNOSIS: rt 5th toe infection OPERATION: right 5th toe amputation and wound debridement. SURGEON: SOUTH LYONS ANESTHESIA: Local TISSUE REMOVED OR ALTERED: rt 5th toe COMPLICATIONS: none ESTIMATED BLOOD LOSS: 5cc INTRAOPERATIVE FINDINGS: purulent rt foot infection PROCEDURE: see dictation
[2018-05-28] MEDS: INSULIN GLARGINE,HUM.REC.ANLOG 1,000 UNIT/10 ML UNIT SUBCUT SCH (21:00)
[2018-05-29] MEDS: PIPERACILLIN SODIUM/TAZOBACTAM 4.5 GM in NORMAL SALINE 100 ML IV SCH ×4 (03:15→21:46)
[2018-05-29] MEDS: VANCOMYCIN HCL 1,500 MG in DEXTROSE 5%-WATER 250 ML IV SCH ×2 (05:34→17:35)
[2018-05-29] MEDS: HEPARIN SOD (PORCINE) 5,000 UNIT/ML 1 ML SYRINGE SUBCUT SCH ×3 (05:36→21:48)
[2018-05-29 06:04] LABS: HEMATOCRIT 38.8 % (37.9-51.0); HEMOGLOBIN 13.6 g/dL (13.5-17.0); MEAN CORPUSCULAR HEMOGLOBIN 29.8 pg (27.0-33.4); MEAN CORPUSCULAR VOLUME 85 fl (80-97); PLATELET COUNT 209 10^3/uL (150-450); RED BLOOD COUNT 4.57 10^6/uL (4.35-5.55); RED CELL DISTRIBUTION WIDTH 13.5 % (11.5-14.0); WHITE BLOOD COUNT 8.3 10^3/uL (4.0-10.5)
[2018-05-29 06:33] LABS: VANCOMYCIN,TROUGH 13.4 ug/mL (5.0-20.0)
[2018-05-29 06:40] LABS: ANION GAP 8 (5-19); BLOOD UREA NITROGEN 22 mg/dL (7-20); CALCIUM 8.9 mg/dL (8.4-10.2); CARBON DIOXIDE 27 mmol/L (22-30); CHLORIDE 102 mmol/L (98-107); GLUCOSE 179 mg/dL (75-110); POTASSIUM 4.1 mmol/L (3.6-5.0); SODIUM 136.7 mmol/L (137-145)
[2018-05-29] MEDS: GLYBURIDE 5 MG TABLET PO SCH ×2 (08:36→17:36)
[2018-05-29] MEDS: INSULIN REG, HUMAN 100 UNIT/ML 3 ML VIAL (PYX) SUBCUT PRN (08:36)
--- NOTE | 2018-05-29 09:27 | PROGRESS NOTE E ---
Progress Note NAME: KYLIE ROBERSON III : 1960 AGE: 57Y DATE: 05/28/2018 ROOM: 529 SUBJECTIVE: The patient is currently lying in bed. He states that he feels okay today. The patient is a little bummed out about having any toe surgery today, most likely is going to have amputation. The patient has been afebrile. His blood pressures have been in a good range, and the patient does not voice any other concerns at this time. The patient did have a low-grade temp though. REVIEW OF SYSTEMS: The rest of the review of systems is negative. MEDICATIONS: Medications have been reviewed. OBJECTIVE: GENERAL: The patient is a 57-year-old male who is awake, alert, and oriented to person, place, time, and situation. He is verbal, conversational, does not appear to be in any acute distress. VITAL SIGNS: As follows: Temperature is 99.4, pulse 85, respirations 17, blood pressure 127/63, oxygen saturation 97% on room air. SKIN: Warm and dry. No rash. He is not diaphoretic. HEENT: His pupils are reactive. Conjunctivae pink. There is no evidence of JVP. CARDIOVASCULAR: Heart is regular. No rub. CHEST: Clear, symmetrical, unlabored. ABDOMEN: Soft, nontender. EXTREMITIES: No clubbing, cyanosis. The patient's right lower extremity is wrapped in an appropriate dressing. DIAGNOSTICS: Lab values are as follows. Hematology obtained on 05/27/2018: WBCs are 9.6, hemoglobin is 14.4, hematocrit is 41.5, platelet count is 259,000. Chemistry obtained on 05/28/2018: Sodium is 134, potassium 4.3, chloride is 96, carbon dioxide 27, BUN 22, creatinine is 1.37, glucose 239, calcium is 9.0. IMPRESSION AND PLAN: 1. CELLULITIS OF THE RIGHT FOOT. Continue broad-spectrum antibiotic coverage which includes anaerobes given the patient's severe diabetes. The patient is going to the OR today for amputation. Will follow. 2. DIABETES MELLITUS TYPE 2. Will resume the patient's home medications as well as sliding-scale coverage. The patient's A1c was significantly elevated. 3. CORONARY ARTERY DISEASE. Continue home medication. 4. BRONCHITIS. The patient's symptoms are much improved with Zyrtec and Mucinex. DISPOSITION: THE PATIENT IS A FULL CODE. Pending the patient's symptomatology and diagnostic findings, will re-evaluate in the a.m. Time spent on this followup, including assessment/plan, physical examination, patient education, review of records, is 25 minutes. DICTATING PHYSICIAN: JULIA FRANCOIS NP [id number] PHY#: [id number] ID: [id number] JOB#: [id number] ACCT: [id number] cc: >
--- NOTE | 2018-05-29 10:07 | OPERATIVE REPORT E ---
Operative Report NAME: KYLIE ROBERSON III : 1960 AGE: 57Y DATE OF SURGERY: 05/28/2018 ROOM: 529 PREOPERATIVE DIAGNOSIS: Diabetic foot infection, right foot. POSTOPERATIVE DIAGNOSIS: Diabetic foot infection, right foot. OPERATIVE PROCEDURE: Right fifth toe amputation and wound debridement. SURGEON: SOUTH LYONS M.D. INDICATIONS FOR OPERATION: This is a 57-year-old male who has got longstanding diabetes who had an injury to his right fifth toe a number of days ago. He developed increasing redness and swelling over the right lateral foot and presented to the emergency room a day or 2 ago for the swelling. He was started on IV antibiotics. Surgical consult was obtained yesterday for evaluation, and he was noted to have a purulent drainage from the base of the right great toe. Today, despite antibiotics, it looked worse and he was, therefore, brought to the operating room for this procedure. PROCEDURE: The patient was brought to the operating room awake, alert, in stable condition, placed on the operating table in a supine position and given IV sedation. The right foot is completely insensate and did not need any general anesthesia. I did use a small amount of local anesthetic. After adequate prep and drape the base of the toe was anesthetized with 1% lidocaine plain; approximately 2 mL were used. A tennis racket-type incision was made at the dorsal portion of the foot and carried down onto the metatarsal joint with a 10 blade. This was carried posteriorly to the plantar surface where the plantar skin edge was left longer than the dorsal skin edge to aid in coverage. Once the skin incision was made we then dissected the subcutaneous tissue and the fascia up away from the metatarsal and then amputated it with a bone cutter. A large amount of pus exuded from the wound. The soft tissue was then debrided back to normal bleeding tissue, and all necrotic tissue was excised with either sharp dissection or Metzenbaum scissors. Once we had good bleeding edges we reapproximated the proximal portion of the wound with 2 stitches of 0 nylon; however, we left the base of the wound open for packing. The base of the wound was then packed with an Iodoform-soaked sponge and a sterile dressing was applied, which completed the procedure. Estimated blood loss was less than 5 mL. Sponge and needle counts were correct x2. The patient was then transferred to recovery in stable condition, no complications. Tissue removed was the right fifth toe. DICTATING PHYSICIAN: SOUTH LYONS M.D. [id number] [id number] PHY#: [id number] ID: [id number] JOB#: [id number] ACCT: [id number] cc:SOUTH LYONS M.D. >
[2018-05-29] MEDS: METFORMIN HCL 500 MG TABLET PO SCH (12:05)
[2018-05-29] MEDS: CARVEDILOL 12.5 MG TABLET PO SCH (12:05)
[2018-05-29] MEDS: GABAPENTIN 300 MG CAPSULE PO SCH ×2 (12:06→21:50)
[2018-05-29] MEDS: GUAIFENESIN 600 MG TABLET.SA PO SCH ×2 (12:06→21:50)
[2018-05-29] MEDS: RANOLAZINE 500 MG TAB.SR.12H PO SCH ×2 (12:06→21:50)
[2018-05-29] MEDS: DOCUSATE SODIUM 100 MG CAPSULE PO SCH ×2 (12:06→15:38)
[2018-05-29] MEDS: LISINOPRIL 5 MG TABLET PO SCH (12:07)
[2018-05-29] MEDS: CETIRIZINE 10 MG TABLET PO SCH (12:08)
[2018-05-29] MEDS: FLUTICASONE NASAL SPRAY 50 MCG/SPRY 120 SPRAY/16 GM NASL SCH ×2 (12:08→21:49)
[2018-05-29] MEDS ORDERED: DEXTROSE 40% GEL 15 GM TUBE PO PRN (13:30)
[2018-05-29] MEDS ORDERED: DEXTROSE 50%-WATER SYRINGE 12.5 GM/25 ML DOSE IV PRN (13:30)
[2018-05-29] MEDS ORDERED: DEXTROSE 40% GEL 15 GM TUBE X 2 PO PRN (13:30)
[2018-05-29] MEDS ORDERED: DEXTROSE 50%-WATER SYRINGE 25 GM/50 ML DOSE IV PRN (13:30)
[2018-05-29] MEDS ORDERED: GLUCAGON,HUMAN RECOMB 1 MG INJ IM PRN (13:30)
--- NOTE | 2018-05-29 16:21 | PDOC PROGRESS REPORT ---
Subjective Progress Note for:: 05/29/18 Reason For Visit: CELLULITIS Physical Exam Vital Signs: Temp Pulse Resp BP Pulse Ox 98.9 F 79 17 125/69 96 05/29/18 12:00 05/29/18 12:00 05/29/18 12:00 05/29/18 12:00 05/29/18 12:00 Intake & Output 05/28/18 05/29/18 05/30/18 06:59 06:59 06:59 Intake Total 1230 3834 350 Output Total 1090 Balance 1230 2744 350 Weight 108.9 kg 108.3 kg Results Laboratory Results: 05/29/18 05:50 05/29/18 05:50 05/29/18 05/29/18 05/29/18 05:12 05:50 05:50 WBC 8.3 RBC 4.57 Hgb 13.6 Hct 38.8 MCV 85 MCH 29.8 MCHC 35.0 RDW 13.5 Plt Count 209 Sodium 136.7 L Potassium 4.1 Chloride 102 Carbon Dioxide 27 Anion Gap 8 BUN 22 H Creatinine 1.42 H 1.44 H Est GFR ( Amer) > 60 > 60 Est GFR (Non-Af Amer) 51 L 50 L Glucose 179 H Calcium 8.9 Magnesium 2.0 Impressions: Chest X-Ray 05/27/18 00:00 IMPRESSION: NO ACUTE RADIOGRAPHIC FINDING IN THE CHEST. Foot X-Ray 05/27/18 11:33 IMPRESSION: Suspected neuropathic joint. No obvious osteomyelitis. Assessment & Plan - Plan Summary Plan Summary: This is a 57-year-old male status post fifth toe amputation. I have removed the dressing today. The wound is clean, without purulence or necrosis. I will initiate damp dressing changes twice daily. Continue intravenous antibiotics. If the wound continues to remain clean, plan for delayed primary closure in the next 4 days. Will follow.
[2018-05-29] MEDS: INSULIN LISPRO 100 UNIT/ML 3 ML VIAL SUBCUT PRN ×2 (17:29→23:45)
--- NOTE | 2018-05-29 20:27 | PROGRESS NOTE E ---
Progress Note NAME: KYLIE ROBERSON III : 1960 AGE: 57Y DATE: 05/29/2018 ROOM: 529 SUBJECTIVE: Mr. Roberson is currently lying in bed. He states that he feels okay today. The patient returned from the OR. He denies any nausea, vomiting, diarrhea. No shortness of breath, dizziness, chest pain. No fevers, chills. The patient has been afebrile. His blood pressures have been in a good range and the patient does not voice any other concerns at this time. REVIEW OF SYSTEMS: Rest of review of systems negative. MEDICATIONS: Medications have been reviewed. OBJECTIVE: GENERAL: The patient is a 57-year-old male who is awake, alert and oriented to person, place, time, situation. He is verbal, conversational, does not appear to be in any acute distress. VITAL SIGNS: As follows: Temperature is 98.4, pulse 77, respirations 17, blood pressure 128/70, oxygen saturation 96% on room air. SKIN: Warm and dry. No rash. Not diaphoretic. HEENT: Pupils equal, round, reactive to light and accommodation. Conjunctiva is pink. There is no evidence of JVP. CARDIOVASCULAR: Heart is regular. There is no murmur or rub. CHEST: Clear, symmetrical, unlabored. ABDOMEN: Soft, nontender. EXTREMITIES: No clubbing, cyanosis. The patient's right lower extremity is wrapped in appropriate dressing. PSYCHIATRIC: Appropriate affect, pleasant mood. DIAGNOSTICS: Lab values are as follows: Hematology obtained on 05/29/2018: WBC are 8.3, hemoglobin 17.6, hematocrit 38.8, platelet count is 209,000. Chemistry obtained on 05/29/2018: Sodium is 136, potassium 4.1, chloride is 102, carbon dioxide 27, BUN 22, creatinine is 1.42, glucose 179, calcium 8.9, magnesium is 2.0. IMPRESSION AND PLAN: 1. CELLULITIS OF THE RIGHT FOOT. The patient is postoperative day #1 of repair. Will continue current antibiotic coverage. He did have 1 toe amputated. Will follow. 2. DIABETES MELLITUS TYPE 2. Will resume the patient's home medications. Sliding scale coverage. A1c was significantly elevated. He does have better glycemic control at this time. 3. CORONARY ARTERY DISEASE. Continue home medication. 4. BRONCHITIS. This is improved with Zyrtec, Mucinex. DISPOSITION: THE PATIENT IS FULL CODE. Pending the patient's symptomatology and diagnostic findings, will re-evaluate in the a.m. Time spent on this followup, including assessment, plan, physical examination, patient education, review of records, is 25 minutes. DICTATING PHYSICIAN: JULIA FRANCOIS NP [id number] [id number] PHY#: [id number] ID: [id number] JOB#: [id number] ACCT: [id number] cc: >
[2018-05-29] MEDS: INSULIN GLARGINE,HUM.REC.ANLOG 1,000 UNIT/10 ML UNIT SUBCUT SCH (21:49)
[2018-05-30] MEDS: PIPERACILLIN SODIUM/TAZOBACTAM 4.5 GM in NORMAL SALINE 100 ML IV SCH ×4 (04:14→20:40)
[2018-05-30] MEDS: VANCOMYCIN HCL 1,500 MG in DEXTROSE 5%-WATER 250 ML IV SCH ×2 (06:42→18:45)
[2018-05-30] MEDS: HEPARIN SOD (PORCINE) 5,000 UNIT/ML 1 ML SYRINGE SUBCUT SCH ×3 (06:42→21:48)
[2018-05-30] MEDS: GLYBURIDE 5 MG TABLET PO SCH ×2 (08:20→16:36)
[2018-05-30] MEDS: RANOLAZINE 500 MG TAB.SR.12H PO SCH ×2 (10:37→21:49)
[2018-05-30] MEDS: GABAPENTIN 300 MG CAPSULE PO SCH ×2 (10:37→21:49)
[2018-05-30] MEDS: CETIRIZINE 10 MG TABLET PO SCH (10:37)
[2018-05-30] MEDS: DOCUSATE SODIUM 100 MG CAPSULE PO SCH ×2 (10:37→18:45)
[2018-05-30] MEDS: GUAIFENESIN 600 MG TABLET.SA PO SCH ×2 (10:37→21:49)
[2018-05-30] MEDS: LISINOPRIL 5 MG TABLET PO SCH (10:38)
[2018-05-30] MEDS: CARVEDILOL 12.5 MG TABLET PO SCH (10:38)
[2018-05-30] MEDS: FLUTICASONE NASAL SPRAY 50 MCG/SPRY 120 SPRAY/16 GM NASL SCH ×2 (10:38→21:48)
[2018-05-30] MEDS: INSULIN LISPRO 100 UNIT/ML 3 ML VIAL SUBCUT PRN ×3 (12:32→21:48)
--- NOTE | 2018-05-30 13:14 | PDOC PROGRESS REPORT ---
Subjective Progress Note for:: 05/30/18 Reason For Visit: CELLULITIS Physical Exam Vital Signs: Temp Pulse Resp BP Pulse Ox 97.9 F 74 17 135/81 H 94 05/30/18 12:00 05/30/18 12:00 05/30/18 12:00 05/30/18 07:45 05/30/18 12:00 Intake & Output 05/29/18 05/30/18 05/31/18 06:59 06:59 06:59 Intake Total 3834 1980 Output Total 1090 1910 Balance 2744 70 Weight 108.3 kg 101.6 kg Results Laboratory Results: 05/29/18 05:50 05/29/18 05:50 Impressions: Chest X-Ray 05/27/18 00:00 IMPRESSION: NO ACUTE RADIOGRAPHIC FINDING IN THE CHEST. Foot X-Ray 05/27/18 11:33 IMPRESSION: Suspected neuropathic joint. No obvious osteomyelitis. Assessment & Plan - Plan Summary Plan Summary: This a 57-year-old male status post amputation of the right fifth toe. The patient's wound is open. There is good granulation tissue within the base of the wound. There is a small area of the lateral aspect that appears marginal, without obvious necrosis. Continue twice daily dressing changes. Will make a decision regarding wound VAC versus delayed primary closure in the next 24-48 hours.
[2018-05-30] MEDS: METFORMIN HCL 500 MG TABLET PO SCH (13:25)
[2018-05-30] MEDS: INSULIN GLARGINE,HUM.REC.ANLOG 1,000 UNIT/10 ML UNIT SUBCUT SCH (21:49)
[2018-05-31] MEDS: PIPERACILLIN SODIUM/TAZOBACTAM 4.5 GM in NORMAL SALINE 100 ML IV SCH ×4 (03:22→21:43)
[2018-05-31] MEDS: HEPARIN SOD (PORCINE) 5,000 UNIT/ML 1 ML SYRINGE SUBCUT SCH ×3 (05:26→22:37)
[2018-05-31] MEDS: VANCOMYCIN HCL 1,500 MG in DEXTROSE 5%-WATER 250 ML IV SCH ×2 (05:26→17:07)
[2018-05-31 07:04] LABS: HEMATOCRIT 39.2 % (37.9-51.0); HEMOGLOBIN 13.6 g/dL (13.5-17.0); MEAN CORPUSCULAR HEMOGLOBIN 29.6 pg (27.0-33.4); MEAN CORPUSCULAR HGB CONC 34.6 g/dL (32.0-36.0); MEAN CORPUSCULAR VOLUME 86 fl (80-97); PLATELET COUNT 268 10^3/uL (150-450); RED BLOOD COUNT 4.57 10^6/uL (4.35-5.55); RED CELL DISTRIBUTION WIDTH 13.4 % (11.5-14.0)
[2018-05-31 07:27] LABS: ANION GAP 10 (5-19); BLOOD UREA NITROGEN 18 mg/dL (7-20); CALCIUM 8.8 mg/dL (8.4-10.2); CARBON DIOXIDE 24 mmol/L (22-30); CHLORIDE 106 mmol/L (98-107); GLUCOSE 70 mg/dL (75-110); POTASSIUM 4.7 mmol/L (3.6-5.0); SODIUM 139.8 mmol/L (137-145)
[2018-05-31] MEDS: GLYBURIDE 5 MG TABLET PO SCH ×2 (08:27→17:08)
--- NOTE | 2018-05-31 09:24 | PDOC PROGRESS REPORT ---
Subjective Progress Note for:: 05/31/18 Subjective:: Having an omelette this morning Reason For Visit: CELLULITIS Physical Exam Vital Signs: Temp Pulse Resp BP Pulse Ox 98.1 F 75 18 143/79 H 97 05/31/18 08:04 05/31/18 08:04 05/31/18 00:00 05/31/18 08:04 05/31/18 08:04 Intake & Output 05/30/18 05/31/18 06/01/18 06:59 06:59 06:59 Intake Total 1979 2260 Output Total 191 1752 Balance 70 508 Weight 101.6 kg 103 kg General appearance: PRESENT: no acute distress Extremities exam: PRESENT: other - Foot dressing removed. Distal sutures intact; no foot erythema or edema. Wound cavity granulating very nicely with 85% of the wound bed with healthy granulation tissue. Results Laboratory Results: 05/31/18 06:09 05/31/18 06:09 05/31/18 05/31/18 06:09 06:09 WBC 8.0 RBC 4.57 Hgb 13.6 Hct 39.2 MCV 86 MCH 29.6 MCHC 34.6 RDW 13.4 Plt Count 268 Sodium 139.8 Potassium 4.7 Chloride 106 Carbon Dioxide 24 Anion Gap 10 BUN 18 Creatinine 1.47 H Est GFR ( Amer) 59 L Est GFR (Non-Af Amer) 49 L Glucose 70 L Calcium 8.8 Magnesium 1.7 Impressions: Chest X-Ray 05/27/18 00:00 IMPRESSION: NO ACUTE RADIOGRAPHIC FINDING IN THE CHEST. Foot X-Ray 05/27/18 11:33 IMPRESSION: Suspected neuropathic joint. No obvious osteomyelitis. Assessment & Plan - Diagnosis (1) Cellulitis of right foot Is this a current diagnosis for this admission?: Yes Plan: Impression: Patient doing well status post right fifth ray amputation, left open, 3 days ago with a nice granulating bed Recommendations: 1. Wound clean, no indication for further intervention from a surgical standpoint; wound to heal by secondary intention and this was explained to patient and family 2. Recommend wound VAC placement; orders written today. 3. Patient can be discharged home from a surgical standpoint within 24 hours, with wound VAC through home health services; wound center on an outpatient basis. 4. Patient should be weightbearing right foot until reevaluated in 1 week by surgeon
[2018-05-31] MEDS: GABAPENTIN 300 MG CAPSULE PO SCH ×2 (11:06→22:37)
[2018-05-31] MEDS: GUAIFENESIN 600 MG TABLET.SA PO SCH ×2 (11:06→22:37)
[2018-05-31] MEDS: CARVEDILOL 12.5 MG TABLET PO SCH (11:06)
[2018-05-31] MEDS: METFORMIN HCL 500 MG TABLET PO SCH (11:06)
[2018-05-31] MEDS: CETIRIZINE 10 MG TABLET PO SCH (11:07)
[2018-05-31] MEDS: LISINOPRIL 5 MG TABLET PO SCH (11:07)
[2018-05-31] MEDS: FLUTICASONE NASAL SPRAY 50 MCG/SPRY 120 SPRAY/16 GM NASL SCH ×2 (11:08→22:36)
[2018-05-31] MEDS: RANOLAZINE 500 MG TAB.SR.12H PO SCH ×2 (11:08→22:37)
[2018-05-31] MEDS: DOCUSATE SODIUM 100 MG CAPSULE PO SCH ×2 (11:12→17:09)
[2018-05-31] MEDS: INSULIN LISPRO 100 UNIT/ML 3 ML VIAL SUBCUT PRN ×2 (12:18→17:08)
[2018-05-31] MEDS: BENZONATATE 100 MG CAPSULE PO PRN (14:43)
--- NOTE | 2018-05-31 15:16 | PDOC PROGRESS REPORT ---
Subjective Progress Note for:: 05/31/18 Subjective:: Patient seems to be doing well since amputation of the toe on right foot. Wound VAC was placed in the last 24 hours. He was last seen by surgery this morning, and they signed off on the case. Their recommendations are listed on the plan. Patient reports blood glucose has been elevated in the 200s for many years. He also reports being on current regimen for many years. He plans to follow-up with primary care physician on discharge. We discussed possible changes in medications, and ultimately we agree to defer this to his primary care physician. Reason For Visit: CELLULITIS Physical Exam Vital Signs: Temp Pulse Resp BP Pulse Ox 97.6 F 75 17 131/70 H 96 05/31/18 12:00 05/31/18 12:00 05/31/18 12:00 05/31/18 12:00 05/31/18 12:00 Intake & Output 05/30/18 05/31/18 06/01/18 06:59 06:59 06:59 Intake Total 1980 2260 100 Output Total 1910 1752 Balance 70 508 100 Weight 101.6 kg 103 kg General appearance: PRESENT: no acute distress, well-developed, well-nourished Head exam: PRESENT: atraumatic, normocephalic Eye exam: PRESENT: conjunctiva pink, EOMI, PERRLA. ABSENT: scleral icterus Ear exam: PRESENT: normal external ear exam Respiratory exam: PRESENT: clear to auscultation linda. ABSENT: rales, rhonchi, wheezes Cardiovascular exam: PRESENT: RRR, +S1, +S2 GI/Abdominal exam: PRESENT: normal bowel sounds, soft. ABSENT: distended, guarding, mass, organolmegaly, rebound, tenderness Musculoskeletal exam: PRESENT: full ROM, other - Normal strength bilateral upper and lower extremities. Appears to be amputation of right foot pinky toe. Covered in bandages. Wound VAC placed. Neurological exam: PRESENT: alert, awake, oriented to person, oriented to place, oriented to time, oriented to situation, CN II-XII grossly intact. ABSENT: motor sensory deficit Psychiatric exam: PRESENT: normal mood Results Laboratory Results: 05/31/18 06:09 05/31/18 06:09 05/31/18 05/31/18 06:09 06:09 WBC 8.0 RBC 4.57 Hgb 13.6 Hct 39.2 MCV 86 MCH 29.6 MCHC 34.6 RDW 13.4 Plt Count 268 Sodium 139.8 Potassium 4.7 Chloride 106 Carbon Dioxide 24 Anion Gap 10 BUN 18 Creatinine 1.47 H Est GFR ( Amer) 59 L Est GFR (Non-Af Amer) 49 L Glucose 70 L Calcium 8.8 Magnesium 1.7 Impressions: Chest X-Ray 05/27/18 00:00 IMPRESSION: NO ACUTE RADIOGRAPHIC FINDING IN THE CHEST. Foot X-Ray 05/27/18 11:33 IMPRESSION: Suspected neuropathic joint. No obvious osteomyelitis. Assessment & Plan - Diagnosis (1) Cellulitis of right foot Is this a current diagnosis for this admission?: Yes (2) Diabetic infection of right foot Is this a current diagnosis for this admission?: Yes (3) AICD (automatic cardioverter/defibrillator) present Is this a current diagnosis for this admission?: Yes (4) CAD (coronary artery disease) Qualifiers: Coronary Disease-Associated Artery/Lesion type: [place] artery [place] vs. transplanted heart: [place] heart Associated angina: without angina Qualified Code(s): I25.10 - Atherosclerotic heart disease of [place] coronary artery without angina pectoris Is this a current diagnosis for this admission?: Yes - Time Time Spent with patient: 15-24 minutes Medications reviewed and adjusted accordingly: Yes - Inpatient Certification Based on my medical assessment, after consideration of the patient's comorbidities, presenting symptoms, or acuity I expect that the services needed warrant INPATIENT care.: Yes I certify that my determination is in accordance with my understanding of Medicare's requirements for reasonable and necessary INPATIENT services [42 CFR 412.3e].: Yes - Plan Summary Plan Summary: 1. Right foot. 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 Secondary to uncontrolled diabetes and cellulitis. Continue on IV antibiotics. And dates are placed. Afebrile. Monitoring. Surgical recommendations are below. Surgery recommendations: 1. Wound clean, no indication for further intervention from a surgical standpoint; wound to heal by secondary intention and this was explained to patient and family 2. Recommend wound VAC placement; orders written today. 3. Patient can be discharged home from a surgical standpoint within 24 hours, with wound VAC through home health services; wound center on an outpatient basis. 4. Patient should be weightbearing right foot until reevaluated in 1 week by surgeon 2. Diabetes-blood glucose remains poorly controlled. Hesitant to make medication changes given intermittent periods of normal blood glucose. Continue metformin at his current dose. Creatinine is 1.47. Discussion had about possible discontinuation of sulfonylurea, but patient would like to continue. We also discussed the possibility of adjusting insulin. He does not seem overly reliable with his medications at home he reports chronic appetite is good. 3. Disposition-continue with IV antibiotics at this time. Will consider for discharge over the next 1-3 days. Would like to improve his blood glucose control, and complete antibiotics course.
--- NOTE | 2018-05-31 18:56 | Progress Note ---
Provider Note Provider Note: ID Consult Note Asked to review patient's chart by Pharmacy. Pt not seen or examined. Reviewed VS, provider notes, labs, imaging reports. Mr Holbrook is a 57 year old man with PMH including DM type II, diabetic neuropathy, CAD, s/p ICD, HTN, and HLD who presented to the ED for swollen, red 5th toe following trauma to it a week ago that failed to improve with a day or two of Rocephin IM and BActrim DS. On presentation, pt was appreciated to have some diffuse swelling and erythema on exam involving the R foot with streaking extending up the ankle and a 2x2 cm area of denuded skin on the base of his R 5th toe dorsally. Plain films of the foot showed no obvious osteomyelities. Blood cultures showed no growth. On r eassessment, despite broad spectrum antibiotics, the toe looked worse with purulent drainage noted, and pt was taken for R 5th toe amputation and wound debridement on 05/28/18. From the operative culture, Group B Strep grew. Post- operatively the foot is noted to have good granulation tissue and a lack of erythema and edema now. Impression/Recommendations Diabetic foot infection of R 5th toe due to Group B Streptococcus, s/p ray amputation. - Group B Streptococcus is sensitive to beta-lactam antibiotics, including penicillin and cephalosporins. No MRSA, Pseudomonas or other organisms grew from the intraoperative culture. - Recommend discontinuing vancomycin and Zosyn. - If there is suspected to be residual infected soft tissue, then cefazolin 2g q8h IV can be given as an inpatient or pt can take to PO Keflex, but per most recent notes, it appears that the cellulitis has largely or entirely resolved. If all of the infected tissue was resected and no cellulitis is remaining on exam, then there should be no need for further antibiotics. Nikhil Hadley MD [facility] Infectious Diseases pager [phone]
[2018-05-31] MEDS: INSULIN GLARGINE,HUM.REC.ANLOG 1,000 UNIT/10 ML UNIT SUBCUT SCH (22:38)
[2018-05-31] MEDS: ACETAMINOPHEN 325 MG TABLET PO PRN (23:45)
[2018-06-01] MEDS: PIPERACILLIN SODIUM/TAZOBACTAM 4.5 GM in NORMAL SALINE 100 ML IV SCH ×3 (02:21→14:00)
[2018-06-01 04:49] LABS: HEMATOCRIT 38.2 % (37.9-51.0); HEMOGLOBIN 13.2 g/dL (13.5-17.0); MEAN CORPUSCULAR HEMOGLOBIN 29.6 pg (27.0-33.4); MEAN CORPUSCULAR HGB CONC 34.7 g/dL (32.0-36.0); MEAN CORPUSCULAR VOLUME 85 fl (80-97); PLATELET COUNT 245 10^3/uL (150-450); RED BLOOD COUNT 4.48 10^6/uL (4.35-5.55); RED CELL DISTRIBUTION WIDTH 13.5 % (11.5-14.0); WHITE BLOOD COUNT 6.8 10^3/uL (4.0-10.5)
[2018-06-01 05:09] LABS: ANION GAP 9 (5-19); BLOOD UREA NITROGEN 15 mg/dL (7-20); CALCIUM 8.7 mg/dL (8.4-10.2); CARBON DIOXIDE 24 mmol/L (22-30); CHLORIDE 107 mmol/L (98-107); GLUCOSE 98 mg/dL (75-110); POTASSIUM 4.3 mmol/L (3.6-5.0); SODIUM 140.1 mmol/L (137-145)
[2018-06-01] MEDS: HEPARIN SOD (PORCINE) 5,000 UNIT/ML 1 ML SYRINGE SUBCUT SCH ×3 (05:50→22:23)
[2018-06-01] MEDS: VANCOMYCIN HCL 1,500 MG in DEXTROSE 5%-WATER 250 ML IV SCH (05:51)
[2018-06-01] MEDS: GLYBURIDE 5 MG TABLET PO SCH ×2 (08:42→17:31)
[2018-06-01] MEDS: DOCUSATE SODIUM 100 MG CAPSULE PO SCH ×2 (10:02→17:26)
[2018-06-01] MEDS: GUAIFENESIN 600 MG TABLET.SA PO SCH ×2 (10:08→22:23)
[2018-06-01] MEDS: FLUTICASONE NASAL SPRAY 50 MCG/SPRY 120 SPRAY/16 GM NASL SCH ×2 (10:08→22:23)
[2018-06-01] MEDS: RANOLAZINE 500 MG TAB.SR.12H PO SCH ×2 (10:08→22:22)
[2018-06-01] MEDS: CETIRIZINE 10 MG TABLET PO SCH (10:08)
[2018-06-01] MEDS: CARVEDILOL 12.5 MG TABLET PO SCH (10:09)
[2018-06-01] MEDS: GABAPENTIN 300 MG CAPSULE PO SCH ×2 (10:09→22:23)
[2018-06-01] MEDS: LISINOPRIL 5 MG TABLET PO SCH (10:09)
[2018-06-01] MEDS: METFORMIN HCL 500 MG TABLET PO SCH (12:45)
[2018-06-01] MEDS: INSULIN LISPRO 100 UNIT/ML 3 ML VIAL SUBCUT PRN (12:45)
--- NOTE | 2018-06-01 14:51 | PDOC PROGRESS REPORT ---
Subjective Progress Note for:: 06/01/18 Subjective:: Patient continues to report doing fairly well. He does report a chronic cough for last 2 weeks. Denies fever. Minimally productive. On discharge plans to return home. Seems to be tolerating diet well. He was seen by infectious disease, and their antibiotic recommendations have been followed. He is switched over to oral antibiotics. We discussed the options of changing his oral diabetic medications, and/or insulin changes, and agreed that his primary care physician can address these needs on discharge. He agrees to follow-up in a timely manner.. Continues to have wound VAC placed on right foot. Denies issues with pain. Reason For Visit: CELLULITIS Physical Exam Vital Signs: Temp Pulse Resp BP Pulse Ox 98.1 F 78 17 150/80 H 93 06/01/18 12:11 06/01/18 12:11 06/01/18 12:11 06/01/18 12:11 06/01/18 12:11 Intake & Output 05/31/18 06/01/18 06/02/18 06:59 06:59 06:59 Intake Total 2260 1472 350 Output Total 1752 875 Balance 508 597 350 Weight 103 kg 104.5 kg General appearance: PRESENT: no acute distress, well-developed, well-nourished Head exam: PRESENT: atraumatic, normocephalic Ear exam: PRESENT: normal external ear exam Mouth exam: PRESENT: moist, tongue midline Teeth exam: PRESENT: poor dentation Respiratory exam: PRESENT: clear to auscultation linda. ABSENT: rales, rhonchi, wheezes Cardiovascular exam: PRESENT: RRR. ABSENT: diastolic murmur, rubs, systolic murmur Pulses: PRESENT: normal dorsalis pedis pul Vascular exam: PRESENT: normal capillary refill GI/Abdominal exam: PRESENT: normal bowel sounds, soft. ABSENT: distended, guarding, mass, organolmegaly, rebound, tenderness Rectal exam: PRESENT: deferred Extremities exam: PRESENT: other - No edema bilateral lower extremities. Amputation Pg2 of right foot. No signs of localized infection. Musculoskeletal exam: PRESENT: normal inspection Neurological exam: PRESENT: alert, awake, oriented to person, oriented to place, oriented to time, oriented to situation, CN II-XII grossly intact. ABSENT: motor sensory deficit Psychiatric exam: PRESENT: normal mood Results Laboratory Results: 06/01/18 04:11 06/01/18 04:11 06/01/18 06/01/18 04:11 04:11 WBC 6.8 RBC 4.48 Hgb 13.2 L Hct 38.2 MCV 85 MCH 29.6 MCHC 34.7 RDW 13.5 Plt Count 245 Sodium 140.1 Potassium 4.3 Chloride 107 Carbon Dioxide 24 Anion Gap 9 BUN 15 Creatinine 1.29 H Est GFR ( Amer) > 60 Est GFR (Non-Af Amer) 57 L Glucose 98 Calcium 8.7 05/27/18 14:00 Blood Blood Culture - Final NO GROWTH IN 5 DAYS 05/27/18 12:13 Blood Blood Culture - Final NO GROWTH IN 5 DAYS Impressions: Chest X-Ray 05/27/18 00:00 IMPRESSION: NO ACUTE RADIOGRAPHIC FINDING IN THE CHEST. Foot X-Ray 05/27/18 11:33 IMPRESSION: Suspected neuropathic joint. No obvious osteomyelitis. Assessment & Plan - Diagnosis (1) Cellulitis of right foot Is this a current diagnosis for this admission?: Yes (2) Diabetic infection of right foot Is this a current diagnosis for this admission?: Yes (3) AICD (automatic cardioverter/defibrillator) present Is this a current diagnosis for this admission?: Yes (4) CAD (coronary artery disease) Qualifiers: Coronary Disease-Associated Artery/Lesion type: [place] artery [place] vs. transplanted heart: [place] heart Associated angina: without angina Qualified Code(s): I25.10 - Atherosclerotic heart disease of [place] coronary artery without angina pectoris Is this a current diagnosis for this admission?: Yes - Time Time Spent with patient: 15-24 minutes Medications reviewed and adjusted accordingly: Yes - Inpatient Certification Based on my medical assessment, after consideration of the patient's comorbidities, presenting symptoms, or acuity I expect that the services needed warrant INPATIENT care.: Yes I certify that my determination is in accordance with my understanding of Medicare's requirements for reasonable and necessary INPATIENT services [42 CFR 412.3e].: Yes - Plan Summary Plan Summary: 1. Right foot. 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 Secondary to uncontrolled diabetes and cellulitis. Completed 5 days of IV Zosyn and vancomycin. Per ID recommendations. Discontinue IV Vanco and Zosyn. Start oral Keflex 500 mg every 12 hours times 5 days. Continue oral antibiotics given patient's poorly controlled diabetes. Surgical recommendations are below. Localized wound appears to be healing well. Surgery recommendations: 1. Wound clean, no indication for further intervention from a surgical standpoint; wound to heal by secondary intention and this was explained to patient and family 2. Recommend wound VAC placement; orders written today. 3. Patient can be discharged home from a surgical standpoint within 24 hours, with wound VAC through home health services; wound center on an outpatient basis. 4. Patient should be weightbearing right foot until reevaluated in 1 week by surgeon 2. Diabetes-blood glucose remains poorly controlled. Hesitant to make medication changes given intermittent periods of normal blood glucose. Continue metformin at his current dose. Creatinine is 1.47. Discussion had about possible discontinuation of sulfonylurea, but patient would like to continue. We also discussed the possibility of adjusting insulin. He does not seem overly reliable with his medications at home he reports chronic appetite is good. 3. Disposition-the antibiotics been changed to oral antibiotic. Will consider for discharge over the next 1-3 days. Would like to improve his blood glucose control, and complete antibiotics course. Would expect patient can be discharged in the next 48 hours. 4. Cough. x 2 weeks. Minimally productive. Normal chest x-ray on admission. Normal white blood cell count. Given all the information suspect that if infectious it likely is viral in origin. Monitor closely. Denies chronic aspiration issues.
[2018-06-01] MEDS: CEPHALEXIN 500 MG CAPSULE PO SCH (22:23)
[2018-06-01] MEDS: INSULIN GLARGINE,HUM.REC.ANLOG 1,000 UNIT/10 ML UNIT SUBCUT SCH (22:24)
[2018-06-02] MEDS: HEPARIN SOD (PORCINE) 5,000 UNIT/ML 1 ML SYRINGE SUBCUT SCH ×2 (06:07→13:07)
[2018-06-02] MEDS: ACETAMINOPHEN 325 MG TABLET PO PRN (06:30)
[2018-06-02 06:43] LABS: HEMATOCRIT 36.4 % (37.9-51.0); HEMOGLOBIN 12.6 g/dL (13.5-17.0); MEAN CORPUSCULAR HEMOGLOBIN 29.3 pg (27.0-33.4); MEAN CORPUSCULAR HGB CONC 34.6 g/dL (32.0-36.0); MEAN CORPUSCULAR VOLUME 85 fl (80-97); PLATELET COUNT 243 10^3/uL (150-450); RED CELL DISTRIBUTION WIDTH 13.3 % (11.5-14.0); WHITE BLOOD COUNT 5.8 10^3/uL (4.0-10.5)
[2018-06-02 07:10] LABS: ANION GAP 9 (5-19); BLOOD UREA NITROGEN 15 mg/dL (7-20); CALCIUM 8.5 mg/dL (8.4-10.2); CARBON DIOXIDE 24 mmol/L (22-30); CHLORIDE 105 mmol/L (98-107); GLUCOSE 155 mg/dL (75-110); POTASSIUM 4.3 mmol/L (3.6-5.0); SODIUM 137.9 mmol/L (137-145)
[2018-06-02] MEDS: DOCUSATE SODIUM 100 MG CAPSULE PO SCH ×2 (09:47→17:20)
[2018-06-02] MEDS: LISINOPRIL 5 MG TABLET PO SCH (09:50)
[2018-06-02] MEDS: CEPHALEXIN 500 MG CAPSULE PO SCH ×2 (09:50→23:35)
[2018-06-02] MEDS: RANOLAZINE 500 MG TAB.SR.12H PO SCH ×2 (09:50→23:35)
[2018-06-02] MEDS: CARVEDILOL 12.5 MG TABLET PO SCH (09:51)
[2018-06-02] MEDS: GABAPENTIN 300 MG CAPSULE PO SCH ×2 (09:51→23:36)
[2018-06-02] MEDS: GUAIFENESIN 600 MG TABLET.SA PO SCH ×2 (09:51→23:35)
[2018-06-02] MEDS: CETIRIZINE 10 MG TABLET PO SCH (09:51)
[2018-06-02] MEDS: FLUTICASONE NASAL SPRAY 50 MCG/SPRY 120 SPRAY/16 GM NASL SCH ×2 (09:51→23:35)
[2018-06-02] MEDS: GLYBURIDE 5 MG TABLET PO SCH ×2 (09:58→16:21)
--- NOTE | 2018-06-02 11:22 | PDOC PROGRESS REPORT ---
Subjective Progress Note for:: 06/02/18 Subjective:: 06/02/2018-no acute events in the last 24 hours. Patient is afebrile. Temperature today is 98.4. Patient is comfortable in the bed communicating well. ID consult was done the recommendation is to give p.o. cephalexin. Patient is on wound VAC. Reason For Visit: CELLULITIS Physical Exam Vital Signs: Temp Pulse Resp BP Pulse Ox 98.4 F 78 16 138/77 H 95 06/02/18 07:43 06/02/18 07:43 06/02/18 07:43 06/02/18 07:43 06/02/18 07:43 Intake & Output 06/01/18 06/02/18 06/03/18 06:59 06:59 06:59 Intake Total 1472 2187 Output Total 875 2 Balance 597 2185 Weight 104.5 kg 106.4 kg General appearance: PRESENT: no acute distress Head exam: PRESENT: atraumatic Eye exam: PRESENT: PERRLA Mouth exam: PRESENT: moist, tongue midline Neck exam: ABSENT: carotid bruit, JVD, lymphadenopathy, thyromegaly Respiratory exam: PRESENT: clear to auscultation linda. ABSENT: rales, rhonchi, wheezes Cardiovascular exam: PRESENT: RRR. ABSENT: diastolic murmur, rubs, systolic murmur Pulses: PRESENT: other - Poor peripheral pulses. GI/Abdominal exam: PRESENT: normal bowel sounds, soft. ABSENT: distended, guarding, mass, organolmegaly, rebound, tenderness Extremities exam: PRESENT: other Neurological exam: PRESENT: alert, awake, oriented to person, oriented to place, oriented to time, oriented to situation, CN II-XII grossly intact. ABSENT: motor sensory deficit Psychiatric exam: PRESENT: appropriate affect, normal mood. ABSENT: homicidal ideation, suicidal ideation Results Laboratory Results: 06/02/18 06:07 06/02/18 06:07 06/02/18 06/02/18 06:07 06:07 WBC 5.8 RBC 4.30 L Hgb 12.6 L Hct 36.4 L MCV 85 MCH 29.3 MCHC 34.6 RDW 13.3 Plt Count 243 Sodium 137.9 Potassium 4.3 Chloride 105 Carbon Dioxide 24 Anion Gap 9 BUN 15 Creatinine 1.34 H Est GFR ( Amer) > 60 Est GFR (Non-Af Amer) 55 L Glucose 155 H Calcium 8.5 05/28/18 17:39 Foot - Diabetic Ulcer Gram Stain - Final 05/28/18 17:39 Foot - Diabetic Ulcer Wound Culture - Final Group B Beta Streptococcus No Anaerobic Organisms 05/27/18 14:00 Blood Blood Culture - Final NO GROWTH IN 5 DAYS 05/27/18 12:13 Blood Blood Culture - Final NO GROWTH IN 5 DAYS Impressions: Chest X-Ray 05/27/18 00:00 IMPRESSION: NO ACUTE RADIOGRAPHIC FINDING IN THE CHEST. Foot X-Ray 05/27/18 11:33 IMPRESSION: Suspected neuropathic joint. No obvious osteomyelitis. Assessment & Plan - Diagnosis (1) Cellulitis of right foot Is this a current diagnosis for this admission?: Yes Plan: Right foot. 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 Secondary to uncontrolled diabetes and cellulitis. Completed 5 days of IV Zosyn and vancomycin. Per ID recommendations. Discontinue IV Vanco and Zosyn. Start oral Keflex 500 mg every 12 hours times 5 days. Continue oral antibiotics given patient's poorly controlled diabetes. Surgical recommendations are below. Localized wound appears to be healing well. Surgery recommendations: 1. Wound clean, no indication for further intervention from a surgical standpoint; wound to heal by secondary intention and this was explained to patient and family 2. Recommend wound VAC placement; orders written today. 3. Patient can be discharged home from a surgical standpoint within 24 hours, w ith wound VAC through home health services; wound center on an outpatient basis. 4. Patient should be weightbearing right foot until reevaluated in 1 week by surgeon 06/02/2018 patient has a wound VAC draining well. Patient is afebrile. On cephalexin. Plan is to continue the antibiotics today probable discharge tomorrow. (2) Diabetic infection of right foot Is this a current diagnosis for this admission?: Yes Plan: 06/02/2018- Diabetes-blood glucose remains poorly controlled. Hesitant to make medication changes given intermittent periods of normal blood glucose. Continue metformin at his current dose. Creatinine is 1.47. Discussion had about possible discontinuation of sulfonylurea, but patient would like to continue. We also discussed the possibility of adjusting insulin. He does not seem overly reliable with his medications at home he reports chronic appetite is good. 2000-01-31-patient is a diabetic and his blood sugars are 132. Hemoglobin A1c is 11.2. Patient is on sulfonylurea he is insisting on continuing those medications during the hospital stay. Dietary consult was requested. Diet exer cise weight loss compliance with medications were discussed. (3) Essential (primary) hypertension Is this a current diagnosis for this admission?: Yes Plan: 06/02/2018-blood pressure today is 148/87. Patient is on Coreg 12.5 mg twice a day and lisinopril 2.5 mg p.o. daily plan is to increase the lisinopril to 10 mg daily. - Time Time Spent with patient: 15-24 minutes Medications reviewed and adjusted accordingly: Yes Anticipated discharge: Home
[2018-06-02] MEDS ORDERED: LISINOPRIL 5 MG TABLET PO ONE (12:00)
[2018-06-02] MEDS: INSULIN LISPRO 100 UNIT/ML 3 ML VIAL SUBCUT PRN ×2 (12:26→18:13)
[2018-06-02] MEDS: METFORMIN HCL 500 MG TABLET PO SCH (12:26)
[2018-06-03] MEDS: HEPARIN SOD (PORCINE) 5,000 UNIT/ML 1 ML SYRINGE SUBCUT SCH ×3 (00:23→14:17)
[2018-06-03] MEDS: INSULIN GLARGINE,HUM.REC.ANLOG 1,000 UNIT/10 ML UNIT SUBCUT SCH (00:24)
[2018-06-03 04:34] LABS: ABSOLUTE EOSINOPHILS # (AUTO) 0.2 10^3/uL (0.0-0.6); ABSOLUTE LYMPHOCYTES (AUTO) 1.3 10^3/uL (0.5-4.7); ABSOLUTE MONOCYTES (AUTO) 0.6 10^3/uL (0.1-1.4); ABSOLUTE NEUT (AUTO) 3.4 10^3/uL (1.7-8.2); BASOPHILS % (AUTO) 0.6 % (0-2); EOSINOPHILS % (AUTO) 4.1 % (0-6); HEMOGLOBIN 12.8 g/dL (13.5-17.0); LYMPHOCYTES % (AUTO) 23.6 % (13-45); MEAN CORPUSCULAR HEMOGLOBIN 29.4 pg (27.0-33.4); MEAN CORPUSCULAR HGB CONC 34.5 g/dL (32.0-36.0); MEAN CORPUSCULAR VOLUME 85 fl (80-97); MONOCYTES % (AUTO) 10.5 % (3-13); PLATELET COUNT 255 10^3/uL (150-450); RED BLOOD COUNT 4.34 10^6/uL (4.35-5.55); RED CELL DISTRIBUTION WIDTH 13.7 % (11.5-14.0); SEGMENTED NEUTROPHILS % (AUTO) 61.2 % (42-78); TOTAL CELLS COUNTED % (AUTO) 100 %; WHITE BLOOD COUNT 5.6 10^3/uL (4.0-10.5)
[2018-06-03 05:01] LABS: ALANINE AMINOTRANSFERASE 44 U/L (21-72); ALBUMIN 3.1 g/dL (3.5-5.0); ALKALINE PHOSPHATASE 85 U/L (38-126); ANION GAP 8 (5-19); ASPARTATE AMINO TRANSFERASE 41 U/L (17-59); BILIRUBIN,DIRECT 0.2 mg/dL (0.0-0.4); BILIRUBIN,TOTAL 0.3 mg/dL (0.2-1.3); BLOOD UREA NITROGEN 17 mg/dL (7-20); CALCIUM 8.9 mg/dL (8.4-10.2); CARBON DIOXIDE 26 mmol/L (22-30); CHLORIDE 106 mmol/L (98-107); GLUCOSE 166 mg/dL (75-110); POTASSIUM 4.2 mmol/L (3.6-5.0); SODIUM 139.8 mmol/L (137-145); TOTAL PROTEIN 5.8 g/dL (6.3-8.2)
[2018-06-03] MEDS: DOCUSATE SODIUM 100 MG CAPSULE PO SCH (09:55)
[2018-06-03] MEDS ORDERED: LISINOPRIL 10 MG TABLET PO SCH (10:00)
[2018-06-03] MEDS ORDERED: INSULIN DEGLUDEC 10 UNIT SQ SCH (10:00)
[2018-06-03] MEDS: CETIRIZINE 10 MG TABLET PO SCH (10:35)
[2018-06-03] MEDS: GUAIFENESIN 600 MG TABLET.SA PO SCH (10:35)
[2018-06-03] MEDS: CARVEDILOL 12.5 MG TABLET PO SCH (10:35)
[2018-06-03] MEDS: GABAPENTIN 300 MG CAPSULE PO SCH (10:35)
[2018-06-03] MEDS: RANOLAZINE 500 MG TAB.SR.12H PO SCH (10:35)
[2018-06-03] MEDS: CEPHALEXIN 500 MG CAPSULE PO SCH (10:36)
[2018-06-03] MEDS: GLYBURIDE 5 MG TABLET PO SCH (10:36)
[2018-06-03] MEDS: FLUTICASONE NASAL SPRAY 50 MCG/SPRY 120 SPRAY/16 GM NASL SCH (10:41)
--- NOTE | 2018-06-03 13:05 | PDOC DISCHARGE SUMMARY ---
General - Admit/Disc Date/PCP Admission Date/Primary Care Provider: 05/27/18 15:01 DOMINGA RICH MD Discharge Date: 06/03/18 - Discharge Diagnosis (1) Diabetic infection of right foot Is this a current diagnosis for this admission?: Yes (2) Cellulitis of right foot Is this a current diagnosis for this admission?: Yes (3) CAD (coronary artery disease) Is this a current diagnosis for this admission?: Yes (4) Essential (primary) hypertension Is this a current diagnosis for this admission?: Yes - Additional Information Resuscitation Status: Full Code Prescriptions: Cephalexin Monohydrate [Keflex 500 mg Capsule] 500 mg PO Q12 4 Days #8 capsule Docusate Sodium [Colace 100 mg Capsule] 100 mg PO BID #30 capsule Insulin Glargine,Hum.rec.anlog [Lantus Insulin 100 Unit/mL] 55 unit SQ QHS #1 insuln.pen Lisinopril [Prinivil 10 mg Tablet] 10 mg PO DAILY #30 tablet Home Medications: Carvedilol [Coreg 12.5 mg Tablet] 12.5 mg PO DAILY 05/27/18 Gabapentin [Neurontin] 600 mg PO Q12 05/27/18 Glyburide [Diabeta 5 mg Tablet] 5 mg PO BIDACBS 05/27/18 Insulin Degludec [Tresiba Flextouch U-100] 10 units SQ DAILY 05/27/18 Metformin HCl [Glucophage 500 mg Tablet] 500 mg PO DAILY@1200 05/27/18 Ranolazine [Ranexa 500 mg Tab.sr] 500 mg PO Q12 05/27/18 Cephalexin Monohydrate [Keflex 500 mg Capsule] 500 mg PO Q12 4 Days #8 capsule 06/03/18 Docusate Sodium [Colace 100 mg Capsule] 100 mg PO BID #30 capsule 06/03/18 Insulin Glargine,Hum.rec.anlog [Lantus Insulin 100 Unit/mL] 55 unit SQ QHS #1 insuln.pen 06/03/18 Lisinopril [Prinivil 10 mg Tablet] 10 mg PO DAILY #30 tablet 06/03/18 History of Present Illness History of Present Illness: KYLIE ROBERSON III is a 57 year old male with a PMH of HTN, poorly controlled IDDM, diabetic neuropathy, CAD, prior CABG, prior AICD placement and history of diabetic leg ulcers who presented with pain, swelling and drainage on his proximal right foot after a blister popped out. He sustained the wound after dropping a scrap metal on his right foot. Hospital Course Hospital Course: Patient was admitted for cellultiis fo the right foot. He was started initially on vanocmycin and Zosyn. Surgery was consulted and patient underwent debridement and amputation of the right fifth (pinky) toe. He subsequehntly had a wound vac placement on 06/02/18. Infectious Disease was also consulted. Wound cultures grew Strep. IV antibiotics were d/concha and he was swtiched to PO Kelfex per ID recommendation. PAtient will be discharged home on wound vac with wound to heal by secondary intention. He will ff-up with the wound clinic and home health will also be set up. Patient is on Lantus, Tresiba, metformin and glyburide at home. Recommended increasing Lantus to 55 u HS frm 50. He did not want his regimen adjusted further and preferred to have his PCP adjust it. His lisinopril was increased to 10 mg daily as his BP was running high. He will complete 4 more days of Keflex. Advised to be on top of checking his sugars regularly, compliance to medications and titrating his DM regimen with PCP as his Hba1c here was elevated at 11.2. Physical Exam Vital Signs: Temp Pulse Resp BP Pulse Ox 97.5 F 83 18 165/82 H 96 06/03/18 12:00 06/03/18 12:00 06/03/18 12:00 06/03/18 12:00 06/03/18 12:00 Intake & Output 06/02/18 06/03/18 06/04/18 06:59 06:59 06:59 Intake Total 2187 1360 Output Total 2 2 Balance 2185 1358 Weight 234 lb 9.149 oz 234 lb 9.149 oz General appearance: PRESENT: no acute distress, well-developed, well-nourished Head exam: PRESENT: atraumatic, normocephalic Eye exam: PRESENT: conjunctiva pink, EOMI, PERRLA. ABSENT: scleral icterus Ear exam: PRESENT: normal external ear exam Mouth exam: PRESENT: moist, tongue midline Neck exam: ABSENT: carotid bruit, JVD, lymphadenopathy, thyromegaly Respiratory exam: PRESENT: clear to auscultation linda. ABSENT: rales, rhonchi, wheezes Cardiovascular exam: PRESENT: RRR. ABSENT: diastolic murmur, rubs, systolic murmur Pulses: PRESENT: normal dorsalis pedis pul GI/Abdominal exam: PRESENT: normal bowel sounds, soft. ABSENT: distended, guarding, mass, organolmegaly, rebound, tenderness Rectal exam: PRESENT: deferred Extremities exam: PRESENT: other - wound van in place Neurological exam: PRESENT: alert, awake, oriented to person, oriented to place, oriented to time, oriented to situation, CN II-XII grossly intact Results Laboratory Results: 06/03/18 03:43 06/03/18 03:43 06/03/18 06/03/18 03:43 03:43 WBC 5.6 RBC 4.34 L Hgb 12.8 L Hct 37.0 L MCV 85 MCH 29.4 MCHC 34.5 RDW 13.7 Plt Count 255 Seg Neutrophils % 61.2 Lymphocytes % 23.6 Monocytes % 10.5 Eosinophils % 4.1 Basophils % 0.6 Absolute Neutrophils 3.4 Absolute Lymphocytes 1.3 Absolute Monocytes 0.6 Absolute Eosinophils 0.2 Absolute Basophils 0.0 Sodium 139.8 Potassium 4.2 Chloride 106 Carbon Dioxide 26 Anion Gap 8 BUN 17 Creatinine 1.22 Est GFR ( Amer) > 60 Est GFR (Non-Af Amer) > 60 Glucose 166 H Calcium 8.9 Magnesium 1.8 Total Bilirubin 0.3 AST 41 ALT 44 Alkaline Phosphatase 85 Total Protein 5.8 L Albumin 3.1 L Impressions: Chest X-Ray 05/27/18 00:00 IMPRESSION: NO ACUTE RADIOGRAPHIC FINDING IN THE CHEST. Foot X-Ray 05/27/18 11:33 IMPRESSION: Suspected neuropathic joint. No obvious osteomyelitis. Qualifiers - * PATIENT BEING DISCHARGED WITH ANY OF THE FOLLOWING DIAGNOSIS: No
[2018-06-03] MEDS: METFORMIN HCL 500 MG TABLET PO SCH (14:17)
[2018-06-03 16:08] VITALS: BP 164/89
[2018-06-04] MEDS ORDERED: METFORMIN HCL 500 MG TABLET PO SCH (12:00)
== END 2018-06-03 17:32 | disposition home health service (06) | DRG 581 ==
LOC: ER 11:13 → EH 15:01 → 5 18:02
PROVIDERS: ADMIT Internal Medicine; ATTEND Internal Medicine
PROC: 0Y6X0Z0 Detachment at Right 5th Toe, Complete, Open Approach (ICD-10-PCS; principal; 2018-05-28 18:00)
DX: L03.115 Cellulitis of right lower limb (principal); I25.10 Atherosclerotic heart disease of native coronary artery without angina pectoris; I10 Essential (primary) hypertension; E11.621 Type 2 diabetes mellitus with foot ulcer; L97.519 Non-pressure chronic ulcer of other part of right foot with unspecified severity; E11.40 Type 2 diabetes mellitus with diabetic neuropathy, unspecified; E78.00 Pure hypercholesterolemia, unspecified; F32.9 Major depressive disorder, single episode, unspecified; J40 Bronchitis, not specified as acute or chronic; B95.1 Streptococcus, group B, as the cause of diseases classified elsewhere; E11.65 Type 2 diabetes mellitus with hyperglycemia; I25.2 Old myocardial infarction; Z79.899 Other long term (current) drug therapy; Z79.4 Long term (current) use of insulin; Z95.1 Presence of aortocoronary bypass graft; Z95.810 Presence of automatic (implantable) cardiac defibrillator; Z87.891 Personal history of nicotine dependence; Z82.49 Family history of ischemic heart disease and other diseases of the circulatory system; Z83.3 Family history of diabetes mellitus; Z80.3 Family history of malignant neoplasm of breast
CPT/HCPCS: 01480; 36415; 71046; 80048; 80053; 80202; 82565; 82962; 83036; 83735; 85025; 85027; 87040; 87070; 87075; 87077; 87205; 88305; 88311; 93005; 93010; 99284; J1644; J1815; J2250; J2405; J2543; J2704; J3010; J3370; J3490; J7030; J7060

== ENCOUNTER → 2018-06-15 | Outpatient (CLI) | payer MEDICAID, MEDICARE ==
--- NOTE | 2018-06-16 09:20 | XCELERA REPORT ---
[address] [address] Lower Extremity Arterial Evaluation Name: KYLIE ROBERSON III, III Age: 57 yrs Gender: Male : 1960 Patient Status: Outpatient Patient Location: Study Date: 06/15/2018 01:30 PM Procedure: A color flow and duplex scan of the lower extremity arteries was performed bilaterally with velocity and waveform anaylsis. Ankle brachial indicies performed. Reason For Study: ULCER Ordering Physician: NICHOLAS CORREIA Performed By: Thomas Valdivia Measurements and Calculations Right Left SENIOR STAFF PSYCHOLOGIST PSV 73.2 73.7 cm/sec Prox PFA PSV -51.0 -53.7 cm/sec Prox SFA PSV 53.8 78.9 cm/sec Mid SFA PSV -51.1 -80.0 cm/sec Dist SFA PSV -51.9 -42.7 cm/sec Prox Pop A PSV 36.0 34.9 cm/sec Prox LORIE PSV 121.0 24.9 cm/sec Mid LORIE PSV 24.8 0.20 cm/sec Dist LORIE PSV 0.20 0.20 cm/sec Dist LEASING SPECIALIST PSV 70.3 49.6 cm/sec Paulo Pedis PSV 25.5 -9.4 cm/sec Right Side Arterial Evaluation Normal velocity and triphasic waveforms noted from the Common Femoral artery to the Infrageniculate vessels. Ankle Brachial index 1.08. Left Side Arterial Evaluation Normal velocity and triphasic waveforms noted from the Common Femoral artery to the Posterior tibial artery. Markedly diminisfed flow in the distal Anterior Tibial with low velocity, triphasic, retrograde flow in the Dorsalis Pedis. . Ankle Brachial index 1.15. Interpretation Summary No hemodynamically significant lesions in the right lower extremity only, on duplex imaging, at rest. Mild hemodynamically significant lesions in the left lower extremity only, on duplex imaging, at rest. Well compensated arterial compromise in the left Anterior Tibial artery. CHIKA's are normal. : NICHOLAS CORREIA > Kristian Weiss
== END ==
LOC: SP 13:41
PROVIDERS: ATTEND Preventive Medicine Undersea and Hyperbaric Medicine
DX: L97.512 Non-pressure chronic ulcer of other part of right foot with fat layer exposed (principal)
CPT/HCPCS: 93922; 93925

== ENCOUNTER → 2018-07-30 | Outpatient (CLI) | payer MEDICARE ==
[2018-07-30 13:23] LABS: ABSOLUTE EOSINOPHILS # (AUTO) 0.2 10^3/uL (0.0-0.6); ABSOLUTE LYMPHOCYTES (AUTO) 1.1 10^3/uL (0.5-4.7); ABSOLUTE MONOCYTES (AUTO) 0.4 10^3/uL (0.1-1.4); ABSOLUTE NEUT (AUTO) 4.1 10^3/uL (1.7-8.2); BASOPHILS % (AUTO) 0.7 % (0-2); EOSINOPHILS % (AUTO) 3.7 % (0-6); HEMATOCRIT 36.6 % (37.9-51.0); HEMOGLOBIN 12.7 g/dL (13.5-17.0); LYMPHOCYTES % (AUTO) 18.5 % (13-45); MEAN CORPUSCULAR HEMOGLOBIN 29.3 pg (27.0-33.4); MEAN CORPUSCULAR HGB CONC 34.7 g/dL (32.0-36.0); MEAN CORPUSCULAR VOLUME 84 fl (80-97); MONOCYTES % (AUTO) 7.2 % (3-13); PLATELET COUNT 219 10^3/uL (150-450); RED BLOOD COUNT 4.35 10^6/uL (4.35-5.55); RED CELL DISTRIBUTION WIDTH 16.1 % (11.5-14.0); SEGMENTED NEUTROPHILS % (AUTO) 69.9 % (42-78); TOTAL CELLS COUNTED % (AUTO) 100 %; WHITE BLOOD COUNT 5.9 10^3/uL (4.0-10.5)
[2018-07-30 13:36] LABS: ALANINE AMINOTRANSFERASE 24 U/L (21-72); ALBUMIN 4.4 g/dL (3.5-5.0); ALKALINE PHOSPHATASE 67 U/L (38-126); ANION GAP 15 (5-19); ASPARTATE AMINO TRANSFERASE 28 U/L (17-59); BILIRUBIN,DIRECT 0.3 mg/dL (0.0-0.4); BILIRUBIN,TOTAL 0.8 mg/dL (0.2-1.3); BLOOD UREA NITROGEN 19 mg/dL (7-20); C-REACTIVE PROTEIN 7.6 mg/L (<10.0); CALCIUM 9.5 mg/dL (8.4-10.2); CARBON DIOXIDE 24 mmol/L (22-30); CHLORIDE 104 mmol/L (98-107); GLUCOSE 80 mg/dL (75-110); POTASSIUM 4.6 mmol/L (3.6-5.0); SODIUM 142.7 mmol/L (137-145); TOTAL PROTEIN 7.1 g/dL (6.3-8.2)
[2018-07-30 14:16] LABS: ERYTHROCYTE SEDIMENTATION RATE 47 mm/hr (0-20)
--- NOTE | 2018-07-30 15:58 | RADIOLOGY REPORT (SQ) ---
EXAM DESCRIPTION: FOOT LEFT COMPLETE COMPLETED DATE/TIME: 07/30/2018 12:25 pm REASON FOR STUDY: L97.514 NON-PRS CHRONIC ULCER OTH PRT RIGHT FOOT W NECROSIS OF BONE,E11.621 L97.51 4 NON-PRS CHRONIC ULCER OTH PRT RIGHT FOOT W NECROSIS E11.621 TYPE 2 DIABETES MELLITUS WITH FOOT U LCER COMPARISON: None. NUMBER OF VIEWS: Three views. TECHNIQUE: AP, lateral and oblique radiographic images acquired of the left foot. LIMITATIONS: None. FINDINGS: MINERALIZATION: Normal. BONES: No acute fracture or dislocation. No worrisome bone lesions. JOINTS: No effusions. SOFT TISSUES: No soft tissue swelling. No foreign body. OTHER: No other significant finding. IMPRESSION: No evidence of osteomyelitis. TECHNICAL DOCUMENTATION: JOB ID: [id number] [employer]- All Rights Reserved Reading location - IP/workstation name: [email or web address]
--- NOTE | 2018-07-30 16:02 | RADIOLOGY REPORT (SQ) ---
EXAM DESCRIPTION: FOOT RIGHT COMPLETE COMPLETED DATE/TIME: 07/30/2018 12:25 pm REASON FOR STUDY: L97.514 L97.514 NON-PRS CHRONIC ULCER OTH PRT RIGHT FOOT W NECROSIS E11.621 TYP E 2 DIABETES MELLITUS WITH FOOT ULCER COMPARISON: 05/27/2018. NUMBER OF VIEWS: Three views. TECHNIQUE: AP, lateral and oblique radiographic images acquired of the right foot. LIMITATIONS: None. FINDINGS: Prior amputation of the 5th metatarsal midshaft. Cortical disruption along the medial mar gin with associated periosteal reaction. Changes consistent with neuropathic joint in the hindfoot. IMPRESSION: Findings suspicious for osteomyelitis in the 5th metatarsal stump. TECHNICAL DOCUMENTATION: JOB ID: [id number] [employer]- All Rights Reserved Reading location - IP/workstation name: [email or web address]
== END ==
LOC: OD 11:45
PROVIDERS: ATTEND Preventive Medicine Undersea and Hyperbaric Medicine
DX: L97.514 Non-pressure chronic ulcer of other part of right foot with necrosis of bone (principal); E11.621 Type 2 diabetes mellitus with foot ulcer
CPT/HCPCS: 36415; 80053; 83036; 85025; 85652; 86140

== ENCOUNTER → 2018-09-09 | Outpatient (CLI) | payer MEDICARE ==
[2018-09-09 12:48] LABS: ABSOLUTE EOSINOPHILS # (AUTO) 0.2 10^3/uL (0.0-0.6); ABSOLUTE MONOCYTES (AUTO) 0.4 10^3/uL (0.1-1.4); ABSOLUTE NEUT (AUTO) 3.4 10^3/uL (1.7-8.2); BASOPHILS % (AUTO) 0.9 % (0-2); EOSINOPHILS % (AUTO) 3.9 % (0-6); HEMOGLOBIN 13.8 g/dL (13.5-17.0); LYMPHOCYTES % (AUTO) 20.4 % (13-45); MEAN CORPUSCULAR HEMOGLOBIN 29.2 pg (27.0-33.4); MEAN CORPUSCULAR HGB CONC 34.5 g/dL (32.0-36.0); MEAN CORPUSCULAR VOLUME 85 fl (80-97); MONOCYTES % (AUTO) 8.1 % (3-13); PLATELET COUNT 171 10^3/uL (150-450); RED BLOOD COUNT 4.73 10^6/uL (4.35-5.55); SEGMENTED NEUTROPHILS % (AUTO) 66.7 % (42-78); TOTAL CELLS COUNTED % (AUTO) 100 %; WHITE BLOOD COUNT 5.1 10^3/uL (4.0-10.5)
--- NOTE | 2018-09-09 13:18 | RADIOLOGY REPORT (SQ) ---
EXAM DESCRIPTION: FOOT LEFT COMPLETE COMPLETED DATE/TIME: 09/09/2018 12:23 pm REASON FOR STUDY: TYPE 2 DIABETES MELLITUS WITH FOOT ULCER E11.621 TYPE 2 DIABETES MELLITUS WITH FO OT ULCER L97.522 NON-PRS CHRONIC ULCER OTH PRT LEFT FOOT W FAT LAYER M86.071 ACUTE HEMATOGENOUS OS TEOMYELITIS, RIGHT ANKLE AND FO COMPARISON: None. NUMBER OF VIEWS: Three views. TECHNIQUE: AP, lateral and oblique radiographic images acquired of the left foot. LIMITATIONS: None. FINDINGS: MINERALIZATION: Normal. BONES: No acute fracture or dislocation. No worrisome bone lesions. JOINTS: Mild joint space narrowing at the 1st and 5th metatarsophalangeal joints, and great toe inter phalangeal joint. SOFT TISSUES: Diffuse forefoot soft tissue swelling. No foreign body. On lateral view, a plantar so ft tissue ulcer is present over the ball of the foot. OTHER: No other significant finding. IMPRESSION: No acute fracture Plantar ulcer without aggressive bony demineralization worrisome for osteomyelitis TECHNICAL DOCUMENTATION: JOB ID: [id number] [employer]- All Rights Reserved Reading location - IP/workstation name: [email or web address]
[2018-09-09 13:20] LABS: ALANINE AMINOTRANSFERASE 30 U/L (21-72); ALBUMIN 4.1 g/dL (3.5-5.0); ALKALINE PHOSPHATASE 82 U/L (38-126); ANION GAP 12 (5-19); ASPARTATE AMINO TRANSFERASE 27 U/L (17-59); BILIRUBIN,DIRECT 0.2 mg/dL (0.0-0.4); BILIRUBIN,TOTAL 0.8 mg/dL (0.2-1.3); BLOOD UREA NITROGEN 14 mg/dL (7-20); CALCIUM 9.2 mg/dL (8.4-10.2); CARBON DIOXIDE 26 mmol/L (22-30); CHLORIDE 103 mmol/L (98-107); GLUCOSE 238 mg/dL (75-110); POTASSIUM 4.7 mmol/L (3.6-5.0); SODIUM 140.6 mmol/L (137-145); TOTAL PROTEIN 7.2 g/dL (6.3-8.2)
--- NOTE | 2018-09-09 13:21 | RADIOLOGY REPORT (SQ) ---
EXAM DESCRIPTION: FOOT RIGHT COMPLETE COMPLETED DATE/TIME: 09/09/2018 12:23 pm REASON FOR STUDY: TYPE 2 DIABETES MELLITUS WITH FOOT ULCER E11.621 TYPE 2 DIABETES MELLITUS WITH FO OT ULCER L97.522 NON-PRS CHRONIC ULCER OTH PRT LEFT FOOT W FAT LAYER M86.071 ACUTE HEMATOGENOUS OS TEOMYELITIS, RIGHT ANKLE AND FO COMPARISON: 07/30/2018, 05/27/2018 right foot films NUMBER OF VIEWS: Three views. TECHNIQUE: AP, lateral and oblique radiographic images acquired of the right foot. LIMITATIONS: None. FINDINGS: MINERALIZATION: Overall normal bone density BONES: Post transmetatarsal amputation of the 5th toe. Healed osteotomy defect at the distal tip of the right 5th metatarsal. No soft tissue gas or radiopaque foreign body. JOINTS: There is osteoarthritis at the intertarsal joints and 1st tarsometatarsal joint. SOFT TISSUES: No soft tissue swelling. No foreign body. OTHER: No other significant finding. IMPRESSION: Post transmetatarsal amputation of the 5th toe. No soft tissue gas. No aggressive bony demineralization worrisome for active osteomyelitis TECHNICAL DOCUMENTATION: JOB ID: [id number]- All Rights Reserved Reading location - IP/workstation name: [email or web address]
[2018-09-09 13:29] LABS: ERYTHROCYTE SEDIMENTATION RATE 35 mm/hr (0-20)
== END ==
LOC: OD 11:23
PROVIDERS: ATTEND Preventive Medicine Undersea and Hyperbaric Medicine
DX: E11.621 Type 2 diabetes mellitus with foot ulcer (principal); L97.522 Non-pressure chronic ulcer of other part of left foot with fat layer exposed; M86.071 Acute hematogenous osteomyelitis, right ankle and foot
CPT/HCPCS: 36415; 80053; 83036; 85025; 85652; 86140

== ENCOUNTER 2018-12-03 12:14 | Inpatient (IN) | payer MEDICARE ==
[2018-12-03 12:31] LABS: ABSOLUTE EOSINOPHILS # (AUTO) 0.2 10^3/uL (0.0-0.6); ABSOLUTE MONOCYTES (AUTO) 0.7 10^3/uL (0.1-1.4); ABSOLUTE NEUT (AUTO) 5.8 10^3/uL (1.7-8.2); BASOPHILS % (AUTO) 0.4 % (0-2); EOSINOPHILS % (AUTO) 2.3 % (0-6); HEMATOCRIT 41.1 % (37.9-51.0); LYMPHOCYTES % (AUTO) 12.8 % (13-45); MEAN CORPUSCULAR HEMOGLOBIN 28.8 pg (27.0-33.4); MEAN CORPUSCULAR HGB CONC 34.1 g/dL (32.0-36.0); MEAN CORPUSCULAR VOLUME 85 fl (80-97); MONOCYTES % (AUTO) 8.8 % (3-13); PLATELET COUNT 193 10^3/uL (150-450); RED BLOOD COUNT 4.86 10^6/uL (4.35-5.55); RED CELL DISTRIBUTION WIDTH 14.4 % (11.5-14.0); SEGMENTED NEUTROPHILS % (AUTO) 75.7 % (42-78); TOTAL CELLS COUNTED % (AUTO) 100 %; WHITE BLOOD COUNT 7.7 10^3/uL (4.0-10.5)
[2018-12-03 12:50] LABS: ALANINE AMINOTRANSFERASE 20 U/L (21-72); ALBUMIN 3.8 g/dL (3.5-5.0); ALKALINE PHOSPHATASE 97 U/L (38-126); ANION GAP 13 (5-19); ASPARTATE AMINO TRANSFERASE 22 U/L (17-59); BILIRUBIN,DIRECT 0.3 mg/dL (0.0-0.4); BILIRUBIN,TOTAL 0.9 mg/dL (0.2-1.3); BLOOD UREA NITROGEN 21 mg/dL (7-20); CARBON DIOXIDE 26 mmol/L (22-30); CHLORIDE 96 mmol/L (98-107); CREATINE KINASE 51 U/L (55-170); POTASSIUM 4.2 mmol/L (3.6-5.0); TOTAL PROTEIN 6.9 g/dL (6.3-8.2)
[2018-12-03 12:58] LABS: GLUCOSE 453 mg/dL (75-110)
[2018-12-03] MEDS ORDERED: VANCOMYCIN HCL INJ 1000 MG VIAL IV ONE (12:58)
[2018-12-03] MEDS ORDERED: PIPERACILLIN/TAZOBACTAM 4.5 GM VIAL IV ONE (12:59)
[2018-12-03 13:02] LABS: CREATINE KINASE MB 0.91 ng/mL (<4.55)
[2018-12-03] MEDS ORDERED: INSULIN REG, HUMAN 100 UNIT/ML 3 ML VIAL (PYX) SUBCUT ONE (13:02)
[2018-12-03 13:03] LABS: TROPONIN I < 0.012 ng/mL
[2018-12-03 13:37] LABS: INTERNATIONAL RATION (INR) 1.04; PROTHROMBIN TIME 13.6 SEC (11.4-15.4)
--- NOTE | 2018-12-03 13:47 | EKG REPORT ---
SEVERITY:- ABNORMAL ECG - SINUS RHYTHM NONSPECIFIC INTRAVENTRICULAR CONDUCTION DELAY PROBABLE INFERIOR INFARCT, AGE INDETERMINATE : Confirmed by: Vince Kulkarni MD 03-Dec-2018 13:47:07
--- NOTE | 2018-12-03 14:45 | RADIOLOGY REPORT (SQ) ---
EXAM DESCRIPTION: CHEST 2 VIEWS COMPLETED DATE/TIME: 12/03/2018 2:31 pm REASON FOR STUDY: syncope COMPARISON: 05/27/2018 EXAM PARAMETERS: NUMBER OF VIEWS: two views TECHNIQUE: Digital Frontal and Lateral radiographic views of the chest acquired. RADIATION DOSE: NA LIMITATIONS: none FINDINGS: LUNGS AND PLEURA: No opacities, masses or pneumothorax. No pleural effusion. MEDIASTINUM AND HILAR STRUCTURES: No masses or contour abnormalities. HEART AND VASCULAR STRUCTURES: Cardiomegaly status post median sternotomy with left chest multi lead pacer defibrillator. BONES: No acute findings. HARDWARE: None in the chest. OTHER: No other significant finding. IMPRESSION: Cardiomegaly without acute abnormality of the lungs. TECHNICAL DOCUMENTATION: JOB ID: [id number] [employer]- All Rights Reserved Reading location - IP/workstation name: [email or web address]
--- NOTE | 2018-12-03 14:59 | ER Document Report ---
Entered by JULIA GRNADA SCRIBE 12/03/18 1258 Acting as scribe for:CAROLYNE DONG DO ED General - General Chief Complaint: Near Syncope Stated Complaint: SYNCOPE Time Seen by Provider: 12/03/18 12:29 Primary Care Provider: NICHOLAS CORREIA DPM [ACTIVE STAFF] - Follow up as needed Notes: Patient is a 58-year-old male arriving via EMS with history of near syncope presenting to the emergency department complaining of dizziness. Patient states that he went to his doctor this morning, he used the bathroom at the office, had a bowel movement, felt lightheaded, his vision went blurry and he had to put his head between his knees and almost passed out. Patient states that it happened right before he saw his doctor, his doctor could not get a blood pressure and the patient was pale anc diaphoretic so he proceeded to call EMS. EMS states in the field they recorded the patient's blood pressure at 60/40, they inserted an IV but did not give any fluids. Patient states that he initially went to see his doctor due to a urinary problem. When asked to clarify patient states that he has had an infection on the left side of his scrotum radiating to his penis. Patient denies any discharge. Denies any fevers, chills, dysuria. States it is difficult to urinate. Denies any history of MRSA. TRAVEL OUTSIDE OF THE [place] IN LAST 30 DAYS: No - Related Data Allergies/Adverse Reactions: No Known Allergies Allergy (Verified 05/27/18 11:15) Past Medical History - General Information source: Patient - Social History Smoking Status: Never Smoker Cigarette use (# per day): No Chew tobacco use (# tins/day): No Frequency of alcohol use: None Drug Abuse: None Family History: CAD Patient has suicidal ideation: No Patient has homicidal ideation: No - Past Medical History Cardiac Medical History: Reports: Hx Coronary Artery Disease, Hx Heart Attack - 2007, TRIPLE BYPASS, DEFIB PLACEMENT 2014, Hx Hypercholesterolemia, Hx Hypertension Endocrine Medical History: Reports: Hx Diabetes Mellitus Type 2 - metformin and Lantus Psychiatric Medical History: Reports: Hx Depression Past Surgical History: Reports: Hx Cardiac Catheterization - CABG, Hx Cardiac Surgery - open heart - triple bypass 2007, Hx Coronary Artery Bypass Graft, Hx Open Heart Surgery - 11/2007, Hx Orthopedic Surgery - left hand - Immunizations Hx Diphtheria, Pertussis, Tetanus Vaccination: Yes - 2015 Review of Systems - Review of Systems Constitutional: See HPI, Diaphoresis EENT: No symptoms reported Cardiovascular: See HPI, Dizziness Respiratory: No symptoms reported Gastrointestinal: No symptoms reported Genitourinary: See HPI Male Genitourinary: No symptoms reported Musculoskeletal: No symptoms reported Skin: See HPI Hematologic/Lymphatic: No symptoms reported Neurological/Psychological: No symptoms reported -: Yes All other systems reviewed and negative Physical Exam - Notes Notes: PHYSICAL EXAM GENERAL: Alert, interacts well. No acute distress. Comical, laughing and joking. HEAD: Normocephalic, atraumatic. EYES: Pupils equal, round, and reactive to light. Extraocular movements intact. ENT: Oral mucosa moist, tongue midline. NECK: Full range of motion. Supple. Trachea midline. LUNGS: Clear to auscultation bilaterally, no wheezes, rales, or rhonchi. No respiratory distress. Well-healed midline sternotomy scar noted. HEART: Regular rate and rhythm. No murmurs, gallops, or rubs. ABDOMEN: Soft, non-tender. Non-distended. Bowel sounds present in all 4 quadrants. No guarding, rigidity, or rebound. :Upper aspect of the hemiscrotum is erythematous on the left, extends to the base of the penis, there is an area of fluctuance and swelling that is tender to palpation with an area of crusting but no spontaneous drainage. No crepitus. Testicles themselves are not tender to palpation. EXTREMITIES: Surgical scar at the lateral aspect of the right foot. Moves all 4 extremities spontaneously. No edema, radial and dorsalis pedis pulses 2/4 bilaterally. No cyanosis. NEUROLOGICAL: Alert and oriented x3. Normal speech. Biceps and patellar DTRs 2+ bilaterally. PSYCH: Normal affect, normal mood. SKIN: Warm, dry. Course - Re-evaluation Re-evalutation: 12/03/18 14:56 CBC unremarkable, INR mildly prolonged at 1.04, CMP shows slight low sodium 134.8, BUN and creatinine are both mildly elevated at 21 and 1.31, glucose is elevated and very poorly controlled at 453. Initial cardiac enzymes are negative, chest x-ray shows no acute process. EKG is nonischemic. Near syncopal episode is consistent with vasovagal episode while having a bowel movement. I am very concerned by the abscess on this patient's scrotum. Disc ussed the case with Dr. Lucero who agrees to see this patient in consult and perform incision and drainage. He would like the hospitalist to admit due to multiple major comorbidities including uncontrolled diabetes and coronary artery disease. Discussed with Dr. Zavala who agrees to admit the patient to his service on the medical floor. Patient has been started on vancomycin and Zosyn. No evidence of Kulwant's gangrene at this time but patient and surgeon are aware that I am concerned that it may progress to this without intervention. Dr. Lucero has seen the patient in the emergency department at this time. - Laboratory Result Diagrams: 12/03/18 11:40 12/03/18 11:40 Laboratory results interpreted by me: 12/03/18 12/03/18 11:40 11:40 RDW 14.4 H Lymphocytes % 12.8 L Sodium 134.8 L Chloride 96 L BUN 21 H Creatinine 1.31 H Est GFR (Non-Af Amer) 56 L Glucose 453 H* ALT 20 L Creatine Kinase 51 L - EKG Interpretation by Me Additional EKG results interpreted by me: 12/03/18 14:58 EKG shows sinus rhythm at a rate of 78, T wave inversions noted in 1, 2, flattening in aVL, flattening in V4 through V6, no ST segment elevations or depressions, left axis deviation per my interpretation. Discharge - Discharge Clinical Impression: Abscess of scrotal wall, Vasovagal near syncope Hyperglycemia due to type 2 diabetes mellitus Qualifiers: Diabetes mellitus halfway insulin use: with terminal make up operator use Qualified Code(s): E11.65 - Type 2 diabetes mellitus with hyperglycemia; Z79.4 - buttermaker continuous churn (current) use of insulin Acute renal failure Qualifiers: Acute renal failure type: unspecified Qualified Code(s): N17.9 - Acute kidney failure, unspecified Condition: Good Disposition: ADMITTED INPATIENT Admitting Provider: Lucas (Hospitalist) Unit Admitted: Medical Floor Referrals: NICHOLAS CORREIA DPM [ACTIVE STAFF] - Follow up as needed I personally performed the services described in the documentation, reviewed and edited the documentation which was dictated to the scribe in my presence, and it accurately records my words and actions.
--- NOTE | 2018-12-03 16:34 | PDOC H&P ---
History of Present Illness Admission Date/PCP: 12/03/18 15:06 ROMINA NICOLE MD History of Present Illness: KYLIE ROBERSON III is a 58 year old male past medical history of CAD status post CABG 2007, uncontrolled diabetes with diabetic neuropathy, hypertension, CKD, presenting to ED after an episode of presyncope. Patient was at his PCP office for evaluation of scrotal swelling when he decided to use the restroom, noted to be constipated, had to push very hard to have a bowel movement he suddenly felt lightheaded with blurry vision and became diaphoretic. The episode lasted several seconds, did not pass out, once he recovered he went back to the waiting room notified his doctor and EMS was called. After evaluated by EMS he was found to have systolic blood pressure of 60. Was started on IV fluids and brought to ED. He denies having any syncope, recent volume depletion, was doing fine before going to see his PCP except for scrotal swelling and pain, denies any fever, chills, nausea, vomiting, diarrhea. For the last 3 days he has noted left scrotal swelling and erythema which has progressed to involve the base of his penis. He complains of pressure-like feeling when urinating otherwise denies any dysuria, hesitancy, urgency, frequency, or any penile discharge. In ED he was started on empiric IV antibiotics, surgery was consulted and plan is for I&D tomorrow morning. Hospitalist was consulted for admission. Past Medical History Cardiac Medical History: Reports: Coronary Artery Disease, Myocardial Infarction - 2007, TRIPLE BYPASS, DEFIB PLACEMENT 2014, Hyperlipidema, Hypertension Pulmonary Medical History: Denies: Asthma, Bronchitis, Chronic Obstructive Pulmonary Disease (COPD), Pneumonia Neurological Medical History: Denies: Seizures Endocrine Medical History: Reports: Diabetes Mellitus Type 1, Diabetes Mellitus Type 2 - metformin and Lantus GI Medical History: Denies: Hepatitis, Hiatal Hernia Musculoskeltal Medical History: Denies: Arthritis Psychiatric Medical History: Reports: Depression Hematology: Denies: Anemia, Sickle Cell Disease Past Surgical History Past Surgical History: Reports: Cardiac Catheterization - CABG, Coronary Artery Bypass Graft, Orthopedic Surgery - left hand Denies: Pacemaker Social History Smoking Status: Never Smoker Frequency of Alcohol Use: None Hx Recreational Drug Use: No Drugs: None Hx Prescription Drug Abuse: No Family History Family History: CAD Parental Family History Reviewed: Yes Children Family History Reviewed: Yes Sibling(s) Family History Reviewed.: Yes Medication/Allergy Allergies/Adverse Reactions: No Known Allergies Allergy (Verified 05/27/18 11:15) Review of Systems Review of Systems: as per hpi Physical Exam Vital Signs: Intake & Output 12/02/18 12/03/18 12/04/18 06:59 06:59 06:59 Weight 109 kg General appearance: PRESENT: no acute distress, well-developed, well-nourished Head exam: PRESENT: atraumatic, normocephalic Eye exam: PRESENT: conjunctiva pink, EOMI, PERRLA. ABSENT: scleral icterus Ear exam: PRESENT: normal external ear exam Mouth exam: PRESENT: moist, tongue midline Neck exam: ABSENT: carotid bruit, JVD, lymphadenopathy, thyromegaly Respiratory exam: PRESENT: clear to auscultation linda. ABSENT: rales, rhonchi, wheezes Cardiovascular exam: PRESENT: RRR. ABSENT: diastolic murmur, rubs, systolic mur mur Pulses: PRESENT: normal dorsalis pedis pul Vascular exam: PRESENT: normal capillary refill GI/Abdominal exam: PRESENT: normal bowel sounds, soft. ABSENT: distended, guarding, mass, organolmegaly, rebound, tenderness Rectal exam: PRESENT: deferred Gentrourinary exam: PRESENT: scrotal swelling - Erythema over left hemiscrotum tending to the base of his penis. The area of fluctuance and swelling that is TTP, no discharge noted. Extremities exam: PRESENT: full ROM. ABSENT: calf tenderness, clubbing, pedal edema Neurological exam: PRESENT: alert, awake, oriented to person, oriented to place, oriented to time, oriented to situation, CN II-XII grossly intact. ABSENT: motor sensory deficit Psychiatric exam: PRESENT: appropriate affect, normal mood. ABSENT: homicidal ideation, suicidal ideation Skin exam: PRESENT: dry, intact, warm. ABSENT: cyanosis, rash Results Laboratory Results: 12/03/18 11:40 12/03/18 11:40 12/03/18 12/03/18 11:40 11:40 WBC 7.7 RBC 4.86 Hgb 14.0 Hct 41.1 MCV 85 MCH 28.8 MCHC 34.1 RDW 14.4 H Plt Count 193 Seg Neutrophils % 75.7 Lymphocytes % 12.8 L Monocytes % 8.8 Eosinophils % 2.3 Basophils % 0.4 Absolute Neutrophils 5.8 Absolute Lymphocytes 1.0 Absolute Monocytes 0.7 Absolute Eosinophils 0.2 Absolute Basophils 0.0 Sodium 134.8 L Potassium 4.2 Chloride 96 L Carbon Dioxide 26 Anion Gap 13 BUN 21 H Creatinine 1.31 H Est GFR ( Amer) > 60 Est GFR (Non-Af Amer) 56 L Glucose 453 H* Calcium 9.0 Total Bilirubin 0.9 AST 22 ALT 20 L Alkaline Phosphatase 97 Total Protein 6.9 Albumin 3.8 12/03/18 12/03/18 11:40 11:40 Creatine Kinase 51 L CK-MB (CK-2) 0.91 Troponin I < 0.012 Impressions: Chest X-Ray 12/03/18 13:05 IMPRESSION: Cardiomegaly without acute abnormality of the lungs. Assessment and Plan - Diagnosis (1) Vasovagal near syncope Is this a current diagnosis for this admission?: Yes Plan: Most likely vasovagal presyncope. Patient denies passing out. Volume resuscitation guided by volume status. Monitor vitals. Admit to telemetry. Fall, aspiration, seizure precautions. (2) Abscess of scrotal wall Is this a current diagnosis for this admission?: Yes Plan: Empiric broad-spectrum IV antibiotics. Surgery consulted for I&D. Follow up cultures. (3) Uncontrolled diabetes mellitus Qualifiers: Diabetes mellitus type: type 2 Is this a current diagnosis for this admission?: Yes Plan: Admits to noncompliance. 09/09/2018 hemoglobin A1c 6.1. Diabetic diet, sliding scale insulin, pre-meal insulin, long-acting insulin, Accu-Chek, hypoglycemia protocol. Adjust dosage as needed. Restart home meds upon discharge. Outpatient PCP follow-up. (4) Hyperlipidemia Qualifiers: Is this a current diagnosis for this admission?: Yes Plan: Restart home meds. Diet and lifestyle modification recommended. (5) CAD (coronary artery disease) Qualifiers: Coronary Disease-Associated Artery/Lesion type: bypass graft, autologous artery Is this a current diagnosis for this admission?: Yes Plan: Status post CABG 2007. Denies any anginal symptoms. Continue antiplatelets, beta-blockers, KADY, statins. Outpatient PCP and cardiology follow-up. (6) AICD (automatic cardioverter/defibrillator) present Is this a current diagnosis for this admission?: Yes Plan: As above. Outpatient PCP and cardiology follow-up. (7) Acute renal failure Qualifiers: Acute renal failure type: unspecified Qualified Code(s): N17.9 - Acute kidney failure, unspecified Is this a current diagnosis for this admission?: Yes Plan: Baseline 1.4. Likely due to uncontrolled diabetes. Nonoliguric. Monitor volume status and electrolytes. Avoid nephrotoxic meds. BMP tomorrow. Optimize diabetes management. (8) Constipation Is this a current diagnosis for this admission?: Yes Plan: Likely medication induced. Bowel regimen started. Encourage ambulation, high-fiber diet, rehydration. (9) Diabetic neuropathy Qualifiers: Diabetes mellitus type: type 2 Diabetes mellitus complication detail: diabetic polyneuropathy Qualified Code(s): E11.42 - Type 2 diabetes mellitus with diabetic polyneuropathy Is this a current diagnosis for this admission?: Yes Plan: Restart home meds. Advised on good control of blood sugars. Advised on frequent inspection of bilateral lower extremity for any wounds or ulcers. Patient is wearing diabetic shoes. (10) Depression Is this a current diagnosis for this admission?: Yes Plan: Chronic. Denies any SI/HI. Restart home meds. Outpatient PCP and psychiatry follow-up.
[2018-12-03] MEDS ORDERED: DEXTROSE 40% GEL 15 GM TUBE PO PRN ×4 (16:35→16:37)
[2018-12-03] MEDS ORDERED: DEXTROSE 50%-WATER 25 GM/50 ML DISP.SYRIN IV PRN ×4 (16:35→16:37)
[2018-12-03] MEDS ORDERED: GLUCAGON,HUMAN RECOMB 1 MG INJ IM PRN (16:35)
[2018-12-03] MEDS ORDERED: PROMETHAZINE HCL INJ 25 MG/1 ML VIAL IV PRN (16:37)
[2018-12-03] MEDS ORDERED: OXYCODONE-ACETAMINOPHEN 5-325 MG TABLET PO PRN (16:37)
[2018-12-03] MEDS ORDERED: MAG HYDROX/AL HYDROX/SIMETH SUSP 30 ML UDCUP PO PRN (16:37)
[2018-12-03] MEDS ORDERED: ACETAMINOPHEN 325 MG TABLET PO PRN (16:37)
[2018-12-03] MEDS ORDERED: IPRATROPIUM/ALBUTEROL 0.5-2.5 MG/3 ML AMPUL NEB PRN (16:37)
[2018-12-03] MEDS ORDERED: TEMAZEPAM 15 MG CAPSULE PO PRN (16:37)
[2018-12-03] MEDS ORDERED: GLUCAGON,HUMAN RECOMB 1 MG INJ SUBCUT PRN (16:37)
[2018-12-03] MEDS ORDERED: ONDANSETRON HCL INJ/PF 4 MG/2 ML SDV IV PRN (16:37)
[2018-12-03 16:41] LABS: APPEARANCE,URINE CLEAR; BILIRUBIN,URINE NEGATIVE (NEGATIVE); COLOR,URINE YELLOW; GLUCOSE, URINE >=500 mg/dL (NEGATIVE); KETONES,URINE NEGATIVE (NEGATIVE); LEUKOCYTE ESTERASE,URINE NEGATIVE (NEGATIVE); NITRITE,URINE NEGATIVE (NEGATIVE); PROTEIN,URINE 30 mg/dL (NEGATIVE); URINE SPECIFIC GRAVITY 1.029; UROBILINOGEN,URINE NEGATIVE mg/dL (<2.0)
[2018-12-03] MEDS ORDERED: VANCOMYCIN HCL 0 MG in DEXTROSE 5%-WATER 250 ML IV NR (16:45)
[2018-12-03] MEDS: INSULIN LISPRO 100 UNIT/ML 3 ML VIAL SUBCUT SCH (20:05)
[2018-12-03] MEDS: DOCUSATE SODIUM 100 MG/10 ML UDC PO SCH (20:06)
--- NOTE | 2018-12-03 20:14 | PDOC CONSULTATION ---
Consultation Consult Date: 12/03/18 Provider Consulted: GRACE BONDS Consult reason:: abscess left scrotal area History of Present Illness Admission Date/PCP: 12/03/18 15:06 ROMINA NICOLE MD History of Present Illness: KYLIE ROBERSON III is a 58 year old male who noted a gradually enlarging reddish lesion on his left scrotal area past 1.5 weeks and now encroaching at the base of his penis. He is a diabetic. Denies fever nor chills. Past Medical History Cardiac Medical History: Reports: Coronary Artery Disease, Myocardial Infarction - 2007, TRIPLE BYPASS, DEFIB PLACEMENT 2014, Hyperlipidema, Hypertension Pulmonary Medical History: Denies: Asthma, Bronchitis, Chronic Obstructive Pulmonary Disease (COPD), Pneumonia Neurological Medical History: Denies: Seizures Endocrine Medical History: Reports: Diabetes Mellitus Type 1, Diabetes Mellitus Type 2 - metformin and Lantus GI Medical History: Denies: Hepatitis, Hiatal Hernia Musculoskeltal Medical History: Denies: Arthritis Psychiatric Medical History: Reports: Depression Hematology: Denies: Anemia, Sickle Cell Disease Past Surgical History Past Surgical History: Reports: Cardiac Catheterization - CABG, Coronary Artery Bypass Graft, Orthopedic Surgery - left hand Denies: Pacemaker Social History Smoking Status: Never Smoker Frequency of Alcohol Use: None Hx Recreational Drug Use: No Drugs: None Hx Prescription Drug Abuse: No Family History Family History: CAD Parental Family History Reviewed: Yes Children Family History Reviewed: No Sibling(s) Family History Reviewed.: No Medication/Allergy Allergies/Adverse Reactions: No Known Allergies Allergy (Verified 05/27/18 11:15) Review of Systems Constitutional: PRESENT: as per HPI Physical Exam Vital Signs: Temp Pulse Resp BP Pulse Ox 98.4 F 84 16 126/68 H 97 12/03/18 19:37 12/03/18 19:37 12/03/18 19:37 12/03/18 19:37 12/03/18 19:37 Intake & Output 12/02/18 12/03/18 12/04/18 06:59 06:59 06:59 Weight 110.5 kg General appearance: PRESENT: mild distress Head exam: PRESENT: atraumatic Eye exam: PRESENT: conjunctiva pink Mouth exam: PRESENT: moist Neck exam: PRESENT: full ROM Respiratory exam: PRESENT: clear to auscultation linda Cardiovascular exam: PRESENT: RRR Pulses: PRESENT: normal radial pulses Vascular exam: PRESENT: normal capillary refill GI/Abdominal exam: PRESENT: soft Gentrourinary exam: PRESENT: erythema - swelling left scrotal area, scrotal swelling - left with erythema and mild tenderness Extremities exam: PRESENT: full ROM Musculoskeletal exam: PRESENT: ambulatory Neurological exam: PRESENT: alert, oriented to person, oriented to place, oriented to time, oriented to situation Psychiatric exam: PRESENT: appropriate affect Skin exam: PRESENT: normal color, warm Results Laboratory Results: 12/03/18 11:40 12/03/18 11:40 12/03/18 12/03/18 12/03/18 11:40 11:40 13:22 WBC 7.7 RBC 4.86 Hgb 14.0 Hct 41.1 MCV 85 MCH 28.8 MCHC 34.1 RDW 14.4 H Plt Count 193 Seg Neutrophils % 75.7 Lymphocytes % 12.8 L Monocytes % 8.8 Eosinophils % 2.3 Basophils % 0.4 Absolute Neutrophils 5.8 Absolute Lymphocytes 1.0 Absolute Monocytes 0.7 Absolute Eosinophils 0.2 Absolute Basophils 0.0 Sodium 134.8 L Potassium 4.2 Chloride 96 L Carbon Dioxide 26 Anion Gap 13 BUN 21 H Creatinine 1.31 H Est GFR ( Amer) > 60 Est GFR (Non-Af Amer) 56 L Glucose 453 H* Lactic Acid 2.4 H Calcium 9.0 Total Bilirubin 0.9 AST 22 ALT 20 L Alkaline Phosphatase 97 Total Protein 6.9 Albumin 3.8 Urine Color Urine Appearance Urine pH Ur Specific [place] Urine Protein Urine Glucose (UA) Urine Ketones Urine Blood Urine Nitrite Ur Leukocyte Esterase Urine WBC (Auto) Urine RBC (Auto) 12/03/18 12/03/18 16:13 17:20 WBC RBC Hgb Hct MCV MCH MCHC RDW Plt Count Seg Neutrophils % Lymphocytes % Monocytes % Eosinophils % Basophils % Absolute Neutrophils Absolute Lymphocytes Absolute Monocytes Absolute Eosinophils Absolute Basophils Sodium Potassium Chloride Carbon Dioxide Anion Gap BUN Creatinine Est GFR ( Amer) Est GFR (Non-Af Amer) Glucose Lactic Acid 2.3 H Calcium Total Bilirubin AST ALT Alkaline Phosphatase Total Protein Albumin Urine Color YELLOW Urine Appearance CLEAR Urine pH 5.0 Ur Specific [place] 1.029 Urine Protein 30 H Urine Glucose (UA) >=500 H Urine Ketones NEGATIVE Urine Blood NEGATIVE Urine Nitrite NEGATIVE Ur Leukocyte Esterase NEGATIVE Urine WBC (Auto) 1 Urine RBC (Auto) 0 12/03/18 12/03/18 11:40 11:40 Creatine Kinase 51 L CK-MB (CK-2) 0.91 Troponin I < 0.012 Impressions: Chest X-Ray 12/03/18 13:05 IMPRESSION: Cardiomegaly without acute abnormality of the lungs. Assessment & Plan - Diagnosis (1) Abscess of scrotal wall Is this a current diagnosis for this admission?: Yes (2) Uncontrolled diabetes mellitus Qualifiers: Diabetes mellitus type: type 2 Is this a current diagnosis for this admission?: Yes - Time Time Spent: 30 to 50 Minutes - Inpatient Certification Medical Necessity: Need for IV Antibiotics, Need for Surgery - Plan Summary Plan Summary: For I&D left scrotal abscess tomorrow Continue IV antibiotics and blood sugar control with insulin
[2018-12-03] MEDS ORDERED: INSULIN GLARGINE,HUM.REC.ANLOG 1,000 UNIT/10 ML VIAL SUBCUT SCH (22:00)
[2018-12-03] MEDS ORDERED: INSULIN LISPRO 100 UNIT/ML 3 ML VIAL SUBCUT SCH (22:00)
[2018-12-03] MEDS: PIPERACILLIN SODIUM/TAZOBACTAM 3.375 GM in NORMAL SALINE 100 ML IV SCH (22:36)
[2018-12-03] MEDS: FAMOTIDINE 20 MG TABLET PO SCH (22:36)
[2018-12-03] MEDS: NORMAL SALINE 1000 ML 1,000 ML IV PRN (22:37)
[2018-12-04] MEDS: PIPERACILLIN SODIUM/TAZOBACTAM 3.375 GM in NORMAL SALINE 100 ML IV SCH ×4 (03:39→21:23)
[2018-12-04 05:34] LABS: ABSOLUTE EOSINOPHILS # (AUTO) 0.2 10^3/uL (0.0-0.6); ABSOLUTE LYMPHOCYTES (AUTO) 1.2 10^3/uL (0.5-4.7); ABSOLUTE MONOCYTES (AUTO) 0.6 10^3/uL (0.1-1.4); ABSOLUTE NEUT (AUTO) 4.6 10^3/uL (1.7-8.2); BASOPHILS % (AUTO) 0.3 % (0-2); EOSINOPHILS % (AUTO) 3.1 % (0-6); HEMATOCRIT 37.9 % (37.9-51.0); HEMOGLOBIN 13.1 g/dL (13.5-17.0); LYMPHOCYTES % (AUTO) 17.6 % (13-45); MEAN CORPUSCULAR HEMOGLOBIN 28.8 pg (27.0-33.4); MEAN CORPUSCULAR HGB CONC 34.6 g/dL (32.0-36.0); MEAN CORPUSCULAR VOLUME 83 fl (80-97); MONOCYTES % (AUTO) 9.4 % (3-13); PLATELET COUNT 176 10^3/uL (150-450); RED BLOOD COUNT 4.55 10^6/uL (4.35-5.55); RED CELL DISTRIBUTION WIDTH 14.9 % (11.5-14.0); SEGMENTED NEUTROPHILS % (AUTO) 69.6 % (42-78); TOTAL CELLS COUNTED % (AUTO) 100 %; WHITE BLOOD COUNT 6.6 10^3/uL (4.0-10.5)
[2018-12-04 05:53] LABS: ANION GAP 9 (5-19); BLOOD UREA NITROGEN 22 mg/dL (7-20); CALCIUM 8.4 mg/dL (8.4-10.2); CARBON DIOXIDE 28 mmol/L (22-30); CHLORIDE 100 mmol/L (98-107); GLUCOSE 276 mg/dL (75-110); POTASSIUM 4.1 mmol/L (3.6-5.0)
[2018-12-04] MEDS: VANCOMYCIN HCL 1,500 MG in DEXTROSE 5%-WATER 250 ML IV SCH ×2 (06:12→18:15)
[2018-12-04] MEDS ORDERED: DEXTROSE 50%-WATER 25 GM/50 ML DISP.SYRIN IV PRN ×2 (07:39)
[2018-12-04] MEDS ORDERED: DEXTROSE 40% GEL 15 GM TUBE PO PRN ×2 (07:39)
[2018-12-04] MEDS ORDERED: GLUCAGON,HUMAN RECOMB 1 MG INJ IM PRN (07:39)
[2018-12-04] MEDS: INSULIN LISPRO 100 UNIT/ML 3 ML VIAL SUBCUT SCH ×4 (08:00→21:26)
[2018-12-04] MEDS: FAMOTIDINE 20 MG TABLET PO SCH ×2 (10:00→21:24)
[2018-12-04] MEDS: ENOXAPARIN SODIUM INJ 40 MG/0.4 ML DISP.SYRIN SUBCUT SCH (10:00)
[2018-12-04] MEDS: DOCUSATE SODIUM 100 MG/10 ML UDC PO SCH ×2 (10:00→19:29)
[2018-12-04] MEDS ORDERED: LIDOCAINE 0.5% INJ-PF (5 MG/ML) 50 ML SDV ONE (11:28)
[2018-12-04] MEDS ORDERED: BUPIVACAINE HCL 0.25 % INJ/PF (2.5 MG/1 ML) 30 ML VIAL ONE (11:28)
--- NOTE | 2018-12-04 12:24 | PDOC PROGRESS REPORT ---
Subjective Progress Note for:: 12/04/18 Subjective:: KYLIE ROBERSON III is a 58 year old male past medical history of CAD status post CABG 2007, uncontrolled diabetes with diabetic neuropathy, hypertension, CKD, presenting to ED after an episode of presyncope. Patient was at his PCP office for evaluation of scrotal swelling when he decided to use the restroom, noted to be constipated, had to push very hard to have a b owel movement he suddenly felt lightheaded with blurry vision and became diaphoretic. The episode lasted several seconds, did not pass out, once he recovered he went back to the waiting room notified his doctor and EMS was called. After evaluated by EMS he was found to have systolic blood pressure of 60. Was started on IV fluids and brought to ED. He denies having any syncope, recent volume depletion, was doing fine before going to see his PCP except for scrotal swelling and pain, denies any fever, chills, nausea, vomiting, diarrhea. For the last 3 days he has noted left scrotal swelling and erythema which has progressed to involve the base of his penis. He complains of pressure-like feeling when urinating otherwise denies any dysuria, hesitancy, urgency, frequency, or any penile discharge. In ED he was started on empiric IV antibiotics, surgery was consulted and plan is for I&D tomorrow morning. Hospitalist was consulted for admission. 12/04/2018. No acute events overnight. Patient is pending I&D by surgery. Currently n.p.o. Denies any fever, chills, nausea, vomiting, diarrhea, constipation or any urinary symptoms. Reason For Visit: PRE SYNCOPE,SCROTAL ABSCESS Physical Exam Vital Signs: Temp Pulse Resp BP Pulse Ox 98.3 F 80 18 119/88 H 98 12/04/18 08:00 12/04/18 08:00 12/04/18 08:00 12/04/18 08:00 12/04/18 08:00 Intake & Output 12/03/18 12/04/18 12/05/18 06:59 06:59 06:59 Intake Total 680 Balance 680 Weight 110.5 kg General appearance: PRESENT: no acute distress, well-developed, well-nourished Eye exam: PRESENT: conjunctiva pink, EOMI, PERRLA. ABSENT: scleral icterus Neck exam: ABSENT: carotid bruit, JVD, lymphadenopathy, thyromegaly Respiratory exam: PRESENT: clear to auscultation linda. ABSENT: rales, rhonchi, wheezes Cardiovascular exam: PRESENT: RRR. ABSENT: diastolic murmur, rubs, systolic murmur GI/Abdominal exam: PRESENT: normal bowel sounds, soft. ABSENT: distended, guarding, mass, organolmegaly, rebound, tenderness Gentrourinary exam: PRESENT: scrotal swelling - Left Extremities exam: PRESENT: full ROM. ABSENT: calf tenderness, clubbing, pedal edema Neurological exam: PRESENT: alert, awake, oriented to person, oriented to place, oriented to time, oriented to situation, CN II-XII grossly intact. ABSENT: motor sensory deficit Results Laboratory Results: 12/04/18 05:03 12/04/18 05:03 12/03/18 12/03/18 12/03/18 11:40 11:40 13:22 WBC 7.7 RBC 4.86 Hgb 14.0 Hct 41.1 MCV 85 MCH 28.8 MCHC 34.1 RDW 14.4 H Plt Count 193 Seg Neutrophils % 75.7 Lymphocytes % 12.8 L Monocytes % 8.8 Eosinophils % 2.3 Basophils % 0.4 Absolute Neutrophils 5.8 Absolute Lymphocytes 1.0 Absolute Monocytes 0.7 Absolute Eosinophils 0.2 Absolute Basophils 0.0 Sodium 134.8 L Potassium 4.2 Chloride 96 L Carbon Dioxide 26 Anion Gap 13 BUN 21 H Creatinine 1.31 H Est GFR ( Amer) > 60 Est GFR (Non-Af Amer) 56 L Glucose 453 H* Lactic Acid 2.4 H Calcium 9.0 Total Bilirubin 0.9 AST 22 ALT 20 L Alkaline Phosphatase 97 Total Protein 6.9 Albumin 3.8 Urine Color Urine Appearance Urine pH Ur Specific [place] Urine Protein Urine Glucose (UA) Urine Ketones Urine Blood Urine Nitrite Ur Leukocyte Esterase Urine WBC (Auto) Urine RBC (Auto) 12/03/18 12/03/18 12/03/18 16:13 17:20 21:33 WBC RBC Hgb Hct MCV MCH MCHC RDW Plt Count Seg Neutrophils % Lymphocytes % Monocytes % Eosinophils % Basophils % Absolute Neutrophils Absolute Lymphocytes Absolute Monocytes Absolute Eosinophils Absolute Basophils Sodium Potassium Chloride Carbon Dioxide Anion Gap BUN Creatinine Est GFR ( Amer) Est GFR (Non-Af Amer) Glucose Lactic Acid 2.3 H 2.3 H Calcium Total Bilirubin AST ALT Alkaline Phosphatase Total Protein Albumin Urine Color YELLOW Urine Appearance CLEAR Urine pH 5.0 Ur Specific [place] 1.029 Urine Protein 30 H Urine Glucose (UA) >=500 H Urine Ketones NEGATIVE Urine Blood NEGATIVE Urine Nitrite NEGATIVE Ur Leukocyte Esterase NEGATIVE Urine WBC (Auto) 1 Urine RBC (Auto) 0 12/04/18 12/04/18 05:03 05:03 WBC 6.6 RBC 4.55 Hgb 13.1 L Hct 37.9 MCV 83 MCH 28.8 MCHC 34.6 RDW 14.9 H Plt Count 176 Seg Neutrophils % 69.6 Lymphocytes % 17.6 Monocytes % 9.4 Eosinophils % 3.1 Basophils % 0.3 Absolute Neutrophils 4.6 Absolute Lymphocytes 1.2 Absolute Monocytes 0.6 Absolute Eosinophils 0.2 Absolute Basophils 0.0 Sodium 136.6 L Potassium 4.1 Chloride 100 Carbon Dioxide 28 Anion Gap 9 BUN 22 H Creatinine 1.33 H Est GFR ( Amer) > 60 Est GFR (Non-Af Amer) 55 L Glucose 276 H Lactic Acid Calcium 8.4 Total Bilirubin AST ALT Alkaline Phosphatase Total Protein Albumin Urine Color Urine Appearance Urine pH Ur Specific [place] Urine Protein Urine Glucose (UA) Urine Ketones Urine Blood Urine Nitrite Ur Leukocyte Esterase Urine WBC (Auto) Urine RBC (Auto) 12/03/18 12/03/18 11:40 11:40 Creatine Kinase 51 L CK-MB (CK-2) 0.91 Troponin I < 0.012 Impressions: Chest X-Ray 12/03/18 13:05 IMPRESSION: Cardiomegaly without acute abnormality of the lungs. Assessment and Plan - Diagnosis (1) Vasovagal near syncope Is this a current diagnosis for this admission?: Yes Plan: Vitals WNL. Denies any recurrence. Most likely vasovagal presyncope. Patient denies passing out. Volume resuscitation guided by volume status. Monitor vitals. Admit to telemetry. Fall, aspiration, seizure precautions. (2) Abscess of scrotal wall Is this a current diagnosis for this admission?: Yes Plan: Pending I&D by surgery. Continue empiric broad-spectrum IV antibiotics. Blood culture negative so far. (3) Uncontrolled diabetes mellitus Qualifiers: Diabetes mellitus type: type 2 Is this a current diagnosis for this admission?: Yes Plan: Admits to noncompliance. 09/09/2018 hemoglobin A1c 6.1. Diabetic diet, sliding scale insulin, pre-meal insulin, long-acting insulin, Accu-Chek, hypoglycemia protocol. Adjust dosage as needed. Restart home meds upon discharge. Outpatient PCP follow-up. (4) Hyperlipidemia Qualifiers: Is this a current diagnosis for this admission?: Yes Plan: Restart home meds. Diet and lifestyle modification recommended. (5) CAD (coronary artery disease) Qualifiers: Coronary Disease-Associated Artery/Lesion type: bypass graft, autologous artery Is this a current diagnosis for this admission?: Yes Plan: Status post CABG 2007. Denies any anginal symptoms. Continue antiplatelets, beta-blockers, KADY, statins. Outpatient PCP and cardiology follow-up. (6) AICD (automatic cardioverter/defibrillator) present Is this a current diagnosis for this admission?: Yes Plan: As above. Outpatient PCP and cardiology follow-up. (7) Acute renal failure Qualifiers: Acute renal failure type: unspecified Qualified Code(s): N17.9 - Acute kidney failure, unspecified Is this a current diagnosis for this admission?: Yes Plan: Baseline 1.4. Likely due to uncontrolled diabetes. Nonoliguric. Monitor volume status and electrolytes. Avoid nephrotoxic meds. BMP tomorrow. Optimize diabetes management. (8) Constipation Is this a current diagnosis for this admission?: Yes Plan: Resolved. Likely medication induced. Bowel regimen started. Encourage ambulation, high-fiber diet, rehydration. (9) Diabetic neuropathy Qualifiers: Diabetes mellitus type: type 2 Diabetes mellitus complication detail: diabetic polyneuropathy Qualified Code(s): E11.42 - Type 2 diabetes mellitus with diabetic polyneuropathy Is this a current diagnosis for this admission?: Yes Plan: Restart home meds. Advised on good control of blood sugars. Advised on frequent inspection of bilateral lower extremity for any wounds or ulcers. Patient is wearing diabetic shoes. (10) Depression Is this a current diagnosis for this admission?: Yes Plan: Chronic. Denies any SI/HI. Restart home meds. Outpatient PCP and psychiatry follow-up.
[2018-12-04] MEDS ORDERED: LIDOCAINE 2% INJ-PF (20 MG/ML) 10 ML AMPUL ONE (13:29)
[2018-12-04] MEDS ORDERED: MIDAZOLAM 2 MG/2 ML INJ ONE (13:29)
[2018-12-04] MEDS ORDERED: FENTANYL CITRATE INJ/PF 100 MCG/2 ML AMPUL ONE (13:29)
[2018-12-04] MEDS ORDERED: PROPOFOL INJ 200 MG/20 ML VIAL IV ONE (13:29)
[2018-12-04] MEDS ORDERED: PROMETHAZINE HCL INJ 25 MG/1 ML VIAL IV PRN ×2 (13:54)
[2018-12-04] MEDS ORDERED: FENTANYL CITRATE INJ/PF 100 MCG/2 ML AMPUL IV PRN ×3 (13:54)
[2018-12-04] MEDS ORDERED: DIPHENHYDRAMINE HCL 50 MG/ML VIAL IV PRN (13:54)
[2018-12-04] MEDS ORDERED: ONDANSETRON HCL INJ/PF 4 MG/2 ML SDV IV PRN (13:54)
--- NOTE | 2018-12-04 14:16 | Operative Report ---
Operative Report DATE OF SURGERY: 12/04/18 PREOPERATIVE DIAGNOSIS: Acute left proximal scrotal abscess POSTOPERATIVE DIAGNOSIS: Same OPERATION: Excisional debridement of skin, subcutaneous tissue, and superficial fascia of the left proximal scrotum, wound packing SURGEON: ANGELO GARCIA ANESTHESIA: LMAC TISSUE REMOVED OR ALTERED: Devitalized skin subcutaneous tissue and superficial fascia COMPLICATIONS: None ESTIMATED BLOOD LOSS: Scant INTRAOPERATIVE FINDINGS: See below PROCEDURE: Patient taken the preop holding her to the main operating room where LMAC anesthesia was induced. Patient placed supine position left hemiscrotum exposed, hair clipped, and the scrotum prepped draped sterile fashion Surgical plan and surgical timeout were conducted. The skin was anesthetized with a 1% plain lidocaine. An elliptical excisional piece of skin and subcutaneous tissue was removed approximately 2 x 3 and half centimeters underlying subcutaneous tissue, granulation tissue pus all evacuated using pickups, and hemostats. Approximately 2 g of tissue removed. The pocket tracked cephalad approximately 1 cm under the skin flap. There was no evidence of deep tissue penetration beyond the superficial fascia. Wound irrigated with saline, residual nonviable fragments of skin sharply trimmed. Wound packed with quarter inch iodoform packing. 4 x 4's and tape applied Patient tolerated procedure well, taken recovery in stable condition Recommendations: 1. Daily dressing changes by removing packing, showering and washing with soapy surgical scrub brush 2. Repack wound for the next 3 days with small portion of quarter inch iodoform packing 3. Patient can follow-up with [facility] in 1 week. Patient can take Tylenol or Motrin as needed pain.
[2018-12-04] MEDS: INSULIN GLARGINE,HUM.REC.ANLOG 1,000 UNIT/10 ML VIAL SUBCUT SCH (21:24)
[2018-12-05] MEDS: PIPERACILLIN SODIUM/TAZOBACTAM 3.375 GM in NORMAL SALINE 100 ML IV SCH ×4 (04:00→21:57)
[2018-12-05 05:35] LABS: ABSOLUTE EOSINOPHILS # (AUTO) 0.2 10^3/uL (0.0-0.6); ABSOLUTE LYMPHOCYTES (AUTO) 1.2 10^3/uL (0.5-4.7); ABSOLUTE MONOCYTES (AUTO) 0.5 10^3/uL (0.1-1.4); ABSOLUTE NEUT (AUTO) 4.2 10^3/uL (1.7-8.2); BASOPHILS % (AUTO) 0.6 % (0-2); EOSINOPHILS % (AUTO) 3.9 % (0-6); HEMATOCRIT 36.6 % (37.9-51.0); HEMOGLOBIN 12.9 g/dL (13.5-17.0); LYMPHOCYTES % (AUTO) 19.7 % (13-45); MEAN CORPUSCULAR HGB CONC 35.2 g/dL (32.0-36.0); MEAN CORPUSCULAR VOLUME 82 fl (80-97); MONOCYTES % (AUTO) 8.7 % (3-13); PLATELET COUNT 185 10^3/uL (150-450); RED BLOOD COUNT 4.45 10^6/uL (4.35-5.55); RED CELL DISTRIBUTION WIDTH 14.3 % (11.5-14.0); SEGMENTED NEUTROPHILS % (AUTO) 67.1 % (42-78); TOTAL CELLS COUNTED % (AUTO) 100 %; WHITE BLOOD COUNT 6.2 10^3/uL (4.0-10.5)
[2018-12-05 05:52] LABS: ANION GAP 9 (5-19); BLOOD UREA NITROGEN 18 mg/dL (7-20); CALCIUM 8.4 mg/dL (8.4-10.2); CARBON DIOXIDE 25 mmol/L (22-30); CHLORIDE 104 mmol/L (98-107); GLUCOSE 160 mg/dL (75-110)
[2018-12-05] MEDS: VANCOMYCIN HCL 1,500 MG in DEXTROSE 5%-WATER 250 ML IV SCH ×2 (05:58→17:04)
[2018-12-05] MEDS: INSULIN LISPRO 100 UNIT/ML 3 ML VIAL SUBCUT SCH ×4 (08:38→21:59)
[2018-12-05] MEDS: NORMAL SALINE 1000 ML 1,000 ML IV PRN (08:38)
[2018-12-05] MEDS: FAMOTIDINE 20 MG TABLET PO SCH ×2 (10:02→22:00)
[2018-12-05] MEDS: ENOXAPARIN SODIUM INJ 40 MG/0.4 ML DISP.SYRIN SUBCUT SCH (10:04)
[2018-12-05] MEDS: DOCUSATE SODIUM 100 MG/10 ML UDC PO SCH ×2 (10:04→17:09)
--- NOTE | 2018-12-05 14:58 | PDOC PROGRESS REPORT ---
Subjective Progress Note for:: 12/05/18 Subjective:: KYLIE ROBERSON III is a 58 year old male past medical history of CAD status post CABG 2007, uncontrolled diabetes with diabetic neuropathy, hypertension, CKD, presenting to ED after an episode of presyncope. Patient was at his PCP office for evaluation of scrotal swelling when he decided to use the restroom, noted to be constipated, had to push very hard to have a b owel movement he suddenly felt lightheaded with blurry vision and became diaphoretic. The episode lasted several seconds, did not pass out, once he recovered he went back to the waiting room notified his doctor and EMS was called. After evaluated by EMS he was found to have systolic blood pressure of 60. Was started on IV fluids and brought to ED. He denies having any syncope, recent volume depletion, was doing fine before going to see his PCP except for scrotal swelling and pain, denies any fever, chills, nausea, vomiting, diarrhea. For the last 3 days he has noted left scrotal swelling and erythema which has progressed to involve the base of his penis. He complains of pressure-like feeling when urinating otherwise denies any dysuria, hesitancy, urgency, frequency, or any penile discharge. In ED he was started on empiric IV antibiotics, surgery was consulted and plan is for I&D tomorrow morning. Hospitalist was consulted for admission. 12/04/2018. No acute events overnight. Patient is pending I&D by surgery. Currently n.p.o. Denies any fever, chills, nausea, vomiting, diarrhea, constipation or any urinary symptoms. 12/05/2018. Patient had a mechanical fall while taking shower, denies having any syncope, presyncope or any head trauma. Alert oriented x4, negative for any focal neurological symptoms. Patient is also status post I&D on 12/04/2018. Initial culture positive for gram-positive cocci in clusters. Pending sensitivity. Denies any fever, chills, nausea, vomiting, diarrhea, constipation or any urinary symptoms. Reason For Visit: PRE SYNCOPE,SCROTAL ABSCESS Physical Exam Vital Signs: Temp Pulse Resp BP Pulse Ox 98.2 F 74 16 143/80 H 97 12/05/18 12:03 12/05/18 14:20 12/05/18 14:20 12/05/18 12:03 12/05/18 14:20 Intake & Output 12/04/18 12/05/18 12/06/18 06:59 06:59 06:59 Intake Total 680 3250 350 Output Total 130 Balance 680 3120 350 Weight 110.5 kg 112 kg General appearance: PRESENT: no acute distress, obese, well-developed, well- nourished Head exam: PRESENT: atraumatic, normocephalic Neck exam: ABSENT: carotid bruit, JVD, lymphadenopathy, thyromegaly Respiratory exam: PRESENT: clear to auscultation linda. ABSENT: rales, rhonchi, wheezes Cardiovascular exam: PRESENT: RRR. ABSENT: diastolic murmur, rubs, systolic murmur GI/Abdominal exam: PRESENT: normal bowel sounds, soft. ABSENT: distended, guarding, mass, organolmegaly, rebound, tenderness Gentrourinary exam: PRESENT: other - Left scrotum status post I&D. Erythema and swelling has subsided. Nontender. Neurological exam: PRESENT: alert, awake, oriented to person, oriented to place, oriented to time, oriented to situation, CN II-XII grossly intact. ABSENT: motor sensory deficit Results Laboratory Results: 12/05/18 04:35 12/05/18 04:35 12/05/18 12/05/18 04:35 04:35 WBC 6.2 RBC 4.45 Hgb 12.9 L Hct 36.6 L MCV 82 MCH 29.0 MCHC 35.2 RDW 14.3 H Plt Count 185 Seg Neutrophils % 67.1 Lymphocytes % 19.7 Monocytes % 8.7 Eosinophils % 3.9 Basophils % 0.6 Absolute Neutrophils 4.2 Absolute Lymphocytes 1.2 Absolute Monocytes 0.5 Absolute Eosinophils 0.2 Absolute Basophils 0.0 Sodium 137.9 Potassium 4.0 Chloride 104 Carbon Dioxide 25 Anion Gap 9 BUN 18 Creatinine 1.00 Est GFR ( Amer) > 60 Est GFR (Non-Af Amer) > 60 Glucose 160 H Calcium 8.4 12/03/18 12/03/18 11:40 11:40 Creatine Kinase 51 L CK-MB (CK-2) 0.91 Troponin I < 0.012 Impressions: Chest X-Ray 12/03/18 13:05 IMPRESSION: Cardiomegaly without acute abnormality of the lungs. Assessment and Plan - Diagnosis (1) Abscess of scrotal wall Is this a current diagnosis for this admission?: Yes Plan: Day 2 status post I&D by surgery. Initial culture positive for gram-positive cocci in clusters. Pending sensitivity. Day 3 IV antibiotics. Follow-up cultures. Will transition to p.o. antibiotics once sensitivity availa ble. (2) Vasovagal near syncope Is this a current diagnosis for this admission?: Yes Plan: Vitals WNL. Denies any recurrence. Most likely vasovagal presyncope. Patient denies passing out. Volume resuscitation guided by volume status. Monitor vitals. Admit to telemetry. Fall, aspiration, seizure precautions. Notes. 12/04/2017. Patient had a mechanical fall while taking a shower. Stating that he was washing his feet, and the floor was to slippery, and he got up he slipped. He did not have any syncope, presyncope, head trauma, or any focal neurological symptoms. Post fall examination negative. Negative for any focal neuro deficits. (3) Uncontrolled diabetes mellitus Qualifiers: Diabetes mellitus type: type 2 Is this a current diagnosis for this admission?: Yes Plan: Admits to noncompliance. 09/09/2018 hemoglobin A1c 6.1. Diabetic diet, sliding scale insulin, pre-meal insulin, long-acting insulin, Accu-Chek, hypoglycemia protocol. Adjust dosage as needed. Restart home meds upon discharge. Outpatient PCP follow-up. (4) Hyperlipidemia Qualifiers: Is this a current diagnosis for this admission?: Yes Plan: Restart home meds. Diet and lifestyle modification recommended. (5) CAD (coronary artery disease) Qualifiers: Coronary Disease-Associated Artery/Lesion type: bypass graft, autologous artery Is this a current diagnosis for this admission?: Yes Plan: Status post CABG 2007. Denies any anginal symptoms. Continue antiplatelets, beta-blockers, KADY, statins. Outpatient PCP and cardiology follow-up. (6) AICD (automatic cardioverter/defibrillator) present Is this a current diagnosis for this admission?: Yes Plan: As above. Outpatient PCP and cardiology follow-up. (7) Acute renal failure Qualifiers: Acute renal failure type: unspecified Qualified Code(s): N17.9 - Acute kidney failure, unspecified Is this a current diagnosis for this admission?: Yes Plan: Resolved. Baseline 1.4. Likely due to uncontrolled diabetes. Nonoliguric. Monitor volume status and electrolytes. Avoid nephrotoxic meds. BMP tomorrow. Optimize diabetes management. (8) Constipation Is this a current diagnosis for this admission?: Yes Plan: Resolved. Likely medication induced. Bowel regimen started. Encourage ambulation, high-fiber diet, rehydration. (9) Diabetic neuropathy Qualifiers: Diabetes mellitus type: type 2 Diabetes mellitus complication detail: diabetic polyneuropathy Qualified Code(s): E11.42 - Type 2 diabetes mellitus with diabetic polyneuropathy Is this a current diagnosis for this admission?: Yes Plan: Restart home meds. Advised on good control of blood sugars. Advised on frequent inspection of bilateral lower extremity for any wounds or ulcers. Patient is wearing diabetic shoes. (10) Depression Is this a current diagnosis for this admission?: Yes Plan: Chronic. Denies any SI/HI. Not taking any meds. Outpatient PCP and psychiatry follow-up.
[2018-12-05] MEDS: INSULIN GLARGINE,HUM.REC.ANLOG 1,000 UNIT/10 ML VIAL SUBCUT SCH (21:58)
[2018-12-06] MEDS: PIPERACILLIN SODIUM/TAZOBACTAM 3.375 GM in NORMAL SALINE 100 ML IV SCH ×2 (02:16→09:29)
[2018-12-06] MEDS: NORMAL SALINE 1000 ML 1,000 ML IV PRN (03:00)
[2018-12-06 05:15] LABS: ABSOLUTE EOSINOPHILS # (AUTO) 0.2 10^3/uL (0.0-0.6); ABSOLUTE LYMPHOCYTES (AUTO) 1.3 10^3/uL (0.5-4.7); ABSOLUTE MONOCYTES (AUTO) 0.5 10^3/uL (0.1-1.4); ABSOLUTE NEUT (AUTO) 3.5 10^3/uL (1.7-8.2); BASOPHILS % (AUTO) 0.5 % (0-2); EOSINOPHILS % (AUTO) 3.9 % (0-6); HEMATOCRIT 35.8 % (37.9-51.0); HEMOGLOBIN 12.5 g/dL (13.5-17.0); LYMPHOCYTES % (AUTO) 23.6 % (13-45); MEAN CORPUSCULAR HEMOGLOBIN 28.9 pg (27.0-33.4); MEAN CORPUSCULAR HGB CONC 34.9 g/dL (32.0-36.0); MEAN CORPUSCULAR VOLUME 83 fl (80-97); MONOCYTES % (AUTO) 9.3 % (3-13); PLATELET COUNT 189 10^3/uL (150-450); RED BLOOD COUNT 4.32 10^6/uL (4.35-5.55); RED CELL DISTRIBUTION WIDTH 14.5 % (11.5-14.0); SEGMENTED NEUTROPHILS % (AUTO) 62.7 % (42-78); TOTAL CELLS COUNTED % (AUTO) 100 %; WHITE BLOOD COUNT 5.5 10^3/uL (4.0-10.5)
[2018-12-06 05:38] LABS: ALANINE AMINOTRANSFERASE 19 U/L (21-72); ALBUMIN 3.2 g/dL (3.5-5.0); ALKALINE PHOSPHATASE 75 U/L (38-126); ANION GAP 9 (5-19); ASPARTATE AMINO TRANSFERASE 16 U/L (17-59); BILIRUBIN,DIRECT 0.3 mg/dL (0.0-0.4); BILIRUBIN,TOTAL 0.6 mg/dL (0.2-1.3); BLOOD UREA NITROGEN 16 mg/dL (7-20); CALCIUM 8.4 mg/dL (8.4-10.2); CARBON DIOXIDE 24 mmol/L (22-30); CHLORIDE 105 mmol/L (98-107); GLUCOSE 231 mg/dL (75-110); POTASSIUM 3.9 mmol/L (3.6-5.0); TOTAL PROTEIN 6.2 g/dL (6.3-8.2)
[2018-12-06] MEDS: VANCOMYCIN HCL 1,500 MG in DEXTROSE 5%-WATER 250 ML IV SCH (05:47)
[2018-12-06] MEDS: INSULIN LISPRO 100 UNIT/ML 3 ML VIAL SUBCUT SCH ×4 (08:03→22:11)
[2018-12-06] MEDS: DOCUSATE SODIUM 100 MG/10 ML UDC PO SCH ×2 (09:27→17:19)
[2018-12-06] MEDS: FAMOTIDINE 20 MG TABLET PO SCH ×2 (09:28→22:14)
[2018-12-06] MEDS: ENOXAPARIN SODIUM INJ 40 MG/0.4 ML DISP.SYRIN SUBCUT SCH (09:28)
--- NOTE | 2018-12-06 11:44 | PDOC PROGRESS REPORT ---
Subjective Progress Note for:: 12/06/18 Subjective:: KYLIE ROBERSON III is a 58 year old male past medical history of CAD status post CABG 2007, uncontrolled diabetes with diabetic neuropathy, hypertension, CKD, presenting to ED after an episode of presyncope. Patient was at his PCP office for evaluation of scrotal swelling when he decided to use the restroom, noted to be constipated, had to push very hard to have a b owel movement he suddenly felt lightheaded with blurry vision and became diaphoretic. The episode lasted several seconds, did not pass out, once he recovered he went back to the waiting room notified his doctor and EMS was called. After evaluated by EMS he was found to have systolic blood pressure of 60. Was started on IV fluids and brought to ED. He denies having any syncope, recent volume depletion, was doing fine before going to see his PCP except for scrotal swelling and pain, denies any fever, chills, nausea, vomiting, diarrhea. For the last 3 days he has noted left scrotal swelling and erythema which has progressed to involve the base of his penis. He complains of pressure-like feeling when urinating otherwise denies any dysuria, hesitancy, urgency, frequency, or any penile discharge. In ED he was started on empiric IV antibiotics, surgery was consulted and plan is for I&D tomorrow morning. Hospitalist was consulted for admission. 12/04/2018. No acute events overnight. Patient is pending I&D by surgery. Currently n.p.o. Denies any fever, chills, nausea, vomiting, diarrhea, constipation or any urinary symptoms. 12/05/2018. Patient had a mechanical fall while taking shower, denies having any syncope, presyncope or any head trauma. Alert oriented x4, negative for any focal neurological symptoms. Patient is also status post I&D on 12/04/2018. Initial culture positive for gram-positive cocci in clusters. Pending sensitivity. Denies any fever, chills, nausea, vomiting, diarrhea, constipation or any urinary symptoms. 12/06/2018. No acute events overnight. Patient wound culture growing MSSA. Needs 3 days of packing as per surgery recommendation. Possible home tomorrow. Denies any fever, chills, nausea, vomiting, diarrhea, constipation or any urinary symptoms. Reason For Visit: PRE SYNCOPE,SCROTAL ABSCESS Physical Exam Vital Signs: Temp Pulse Resp BP Pulse Ox 98.4 F 78 18 156/87 H 95 12/06/18 08:02 12/06/18 08:02 12/06/18 08:02 12/06/18 08:02 12/06/18 08:02 Intake & Output 12/05/18 12/06/18 12/07/18 06:59 06:59 06:59 Intake Total 3250 2498 350 Output Total 130 500 Balance 3120 1997 350 Weight 112 kg 116.7 kg General appearance: PRESENT: no acute distress, well-developed, well-nourished Head exam: PRESENT: atraumatic, normocephalic Eye exam: PRESENT: conjunctiva pink, EOMI, PERRLA. ABSENT: scleral icterus Ear exam: PRESENT: normal external ear exam Mouth exam: PRESENT: moist, tongue midline Neck exam: ABSENT: carotid bruit, JVD, lymphadenopathy, thyromegaly Respiratory exam: PRESENT: clear to auscultation linda. ABSENT: rales, rhonchi, wheezes Cardiovascular exam: PRESENT: RRR. ABSENT: diastolic murmur, rubs, systolic murmur Pulses: PRESENT: normal dorsalis pedis pul Vascular exam: PRESENT: normal capillary refill GI/Abdominal exam: PRESENT: normal bowel sounds, soft. ABSENT: distended, guarding, mass, organolmegaly, rebound, tenderness Rectal exam: PRESENT: deferred Extremities exam: PRESENT: full ROM. ABSENT: calf tenderness, clubbing, pedal edema Neurological exam: PRESENT: alert, awake, oriented to person, oriented to place, oriented to time, oriented to situation, CN II-XII grossly intact. ABSENT: motor sensory deficit Psychiatric exam: PRESENT: appropriate affect, normal mood. ABSENT: homicidal ideation, suicidal ideation Skin exam: PRESENT: dry, intact, warm. ABSENT: cyanosis, rash Results Laboratory Results: 12/06/18 04:49 12/06/18 04:49 12/05/18 12/06/18 12/06/18 17:50 04:49 04:49 WBC 5.5 RBC 4.32 L Hgb 12.5 L Hct 35.8 L MCV 83 MCH 28.9 MCHC 34.9 RDW 14.5 H Plt Count 189 Seg Neutrophils % 62.7 Lymphocytes % 23.6 Monocytes % 9.3 Eosinophils % 3.9 Basophils % 0.5 Absolute Neutrophils 3.5 Absolute Lymphocytes 1.3 Absolute Monocytes 0.5 Absolute Eosinophils 0.2 Absolute Basophils 0.0 Sodium 138.0 Potassium 3.9 Chloride 105 Carbon Dioxide 24 Anion Gap 9 BUN 16 Creatinine 1.07 0.95 Est GFR ( Amer) > 60 > 60 Est GFR (Non-Af Amer) > 60 > 60 Glucose 231 H Calcium 8.4 Total Bilirubin 0.6 AST 16 L ALT 19 L Alkaline Phosphatase 75 Total Protein 6.2 L Albumin 3.2 L 12/04/18 13:55 Scrotum Gram Stain - Final 12/04/18 13:55 Scrotum Wound Culture - Final Staphylococcus Aureus No Anaerobic Organisms 12/03/18 12/03/18 11:40 11:40 Creatine Kinase 51 L CK-MB (CK-2) 0.91 Troponin I < 0.012 Impressions: Chest X-Ray 12/03/18 13:05 IMPRESSION: Cardiomegaly without acute abnormality of the lungs. Assessment and Plan - Diagnosis (1) Abscess of scrotal wall Is this a current diagnosis for this admission?: Yes Plan: Day 3 status post I&D by surgery. Wound culture growing MSSA. Antibiotics day 4/10 Day 1/6 p.o. Bactrim Received 3 days of IV antibiotics. Received 3 days of IV vancomycin. Received 3 days of IV Zosyn. Switch to p.o. antibiotics. Discharge home tomorrow to follow-up with surgery in 1 week. (2) Vasovagal near syncope Is this a current diagnosis for this admission?: Yes Plan: Vitals WNL. Denies any recurrence. Most likely vasovagal presyncope. Patient denies passing out. Volume resuscitation guided by volume status. Monitor vitals. Admit to telemetry. Fall, aspiration, seizure precautions. Notes. 12/04/2017. Patient had a mechanical fall while taking a shower. Stating that he was washing his feet, and the floor was to slippery, and he got up he slipped. He did not have any syncope, presyncope, head trauma, or any focal neurological symptoms. Post fall examination negative. Negative for any focal neuro deficits. (3) Uncontrolled diabetes mellitus Qualifiers: Diabetes mellitus type: type 2 Is this a current diagnosis for this admission?: Yes Plan: Admits to noncompliance. 09/09/2018 hemoglobin A1c 6.1. Diabetic diet, sliding scale insulin, pre-meal insulin, long-acting insulin, Accu-Chek, hypoglycemia protocol. Adjust dosage as needed. Restart home meds upon discharge. Outpatient PCP follow-up. (4) Hyperlipidemia Qualifiers: Is this a current diagnosis for this admission?: Yes Plan: Restart home meds. Diet and lifestyle modification recommended. (5) CAD (coronary artery disease) Qualifiers: Coronary Disease-Associated Artery/Lesion type: bypass graft, autologous artery Is this a current diagnosis for this admission?: Yes Plan: Status post CABG 2007. Denies any anginal symptoms. Continue antiplatelets, beta-blockers, KADY, statins. Outpatient PCP and cardiology follow-up. (6) AICD (automatic cardioverter/defibrillator) present Is this a current diagnosis for this admission?: Yes Plan: As above. Outpatient PCP and cardiology follow-up. (7) Acute renal failure Qualifiers: Acute renal failure type: unspecified Qualified Code(s): N17.9 - Acute kidney failure, unspecified Is this a current diagnosis for this admission?: Yes Plan: Resolved. Baseline 1.4. Likely due to uncontrolled diabetes. Nonoliguric. Monitor volume status and electrolytes. Avoid nephrotoxic meds. BMP tomorrow. Optimize diabetes management. (8) Constipation Is this a current diagnosis for this admission?: Yes Plan: Resolved. Likely medication induced. Bowel regimen started. Encourage ambulation, high-fiber diet, rehydration. (9) Diabetic neuropathy Qualifiers: Diabetes mellitus type: type 2 Diabetes mellitus complication detail: diabetic polyneuropathy Qualified Code(s): E11.42 - Type 2 diabetes mellitus with diabetic polyneuropathy Is this a current diagnosis for this admission?: Yes Plan: Restart home meds. Advised on good control of blood sugars. Advised on frequent inspection of bilateral lower extremity for any wounds or ulcers. Patient is wearing diabetic shoes. (10) Depression Is this a current diagnosis for this admission?: Yes Plan: Chronic. Denies any SI/HI. Not taking any meds. Outpatient PCP and psychiatry follow-up.
[2018-12-06] MEDS ORDERED: LISINOPRIL 5 MG TABLET PO SCH (11:45)
[2018-12-06 18:36] LABS: VANCOMYCIN,TROUGH 15.7 ug/mL (5.0-20.0)
[2018-12-06] MEDS ORDERED: INSULIN GLARGINE,HUM.REC.ANLOG 1,000 UNIT/10 ML VIAL SUBCUT SCH (22:00)
[2018-12-06] MEDS: CARVEDILOL 6.25 MG TABLET PO SCH (22:13)
[2018-12-06] MEDS: SULFAMETHOXAZOLE/TRIMETHOPRIM 800-160 MG TABLET PO SCH (22:14)
[2018-12-07 05:22] LABS: HEMATOCRIT 36.1 % (37.9-51.0); HEMOGLOBIN 12.6 g/dL (13.5-17.0); MEAN CORPUSCULAR HGB CONC 34.9 g/dL (32.0-36.0); MEAN CORPUSCULAR VOLUME 83 fl (80-97); PLATELET COUNT 186 10^3/uL (150-450); RED BLOOD COUNT 4.34 10^6/uL (4.35-5.55); RED CELL DISTRIBUTION WIDTH 14.3 % (11.5-14.0); WHITE BLOOD COUNT 8.4 10^3/uL (4.0-10.5)
[2018-12-07 05:34] LABS: ANION GAP 11 (5-19); BLOOD UREA NITROGEN 15 mg/dL (7-20); CALCIUM 8.9 mg/dL (8.4-10.2); CARBON DIOXIDE 24 mmol/L (22-30); CHLORIDE 104 mmol/L (98-107); GLUCOSE 136 mg/dL (75-110); POTASSIUM 3.6 mmol/L (3.6-5.0)
[2018-12-07 05:48] LABS: ABSOLUTE LYMPHOCYTES# (MANUAL) 3.2 10^3/uL (0.5-4.7); ABSOLUTE MONOCYTES # (MANUAL) 0.3 10^3/uL (0.1-1.4); BASOPHILS % (MANUAL) 1 % (0-2); EOSINOPHILS % (MANUAL) 1 % (0-6); LYMPHOCYTES % (MANUAL) 38 % (13-45); MONOCYTES % (MANUAL) 3 % (3-13); SEGMENTED NEUTROPHILS % (MAN) 57 % (42-78); TOTAL CELLS COUNTED 100
[2018-12-07 05:49] LABS: RBC MORPHOLOGY COMMENT NORMO-CYTIC/CHROMIC
[2018-12-07 05:50] LABS: PLATELET COMMENT ADEQUATE
[2018-12-07] MEDS: INSULIN LISPRO 100 UNIT/ML 3 ML VIAL SUBCUT SCH ×2 (08:00→12:07)
[2018-12-07 08:54] VITALS: BP 139/74
[2018-12-07] MEDS: DOCUSATE SODIUM 100 MG/10 ML UDC PO SCH (09:22)
[2018-12-07] MEDS: FAMOTIDINE 20 MG TABLET PO SCH (09:25)
[2018-12-07] MEDS: ENOXAPARIN SODIUM INJ 40 MG/0.4 ML DISP.SYRIN SUBCUT SCH (09:25)
[2018-12-07] MEDS: SULFAMETHOXAZOLE/TRIMETHOPRIM 800-160 MG TABLET PO SCH (09:26)
[2018-12-07] MEDS: CARVEDILOL 6.25 MG TABLET PO SCH (09:26)
--- NOTE | 2018-12-10 12:06 | PDOC DISCHARGE SUMMARY ---
General - Admit/Disc Date/PCP Admission Date/Primary Care Provider: 12/03/18 15:06 ROMINA NICOLE MD Discharge Date: 12/07/18 - Discharge Diagnosis (1) Abscess of scrotal wall Is this a current diagnosis for this admission?: Yes (2) Vasovagal near syncope Is this a current diagnosis for this admission?: Yes (3) Uncontrolled diabetes mellitus Is this a current diagnosis for this admission?: Yes (4) Hyperlipidemia Is this a current diagnosis for this admission?: Yes (5) CAD (coronary artery disease) Is this a current diagnosis for this admission?: Yes (6) AICD (automatic cardioverter/defibrillator) present Is this a current diagnosis for this admission?: Yes (7) Acute renal failure Is this a current diagnosis for this admission?: Yes (8) Constipation Is this a current diagnosis for this admission?: Yes (9) Diabetic neuropathy Is this a current diagnosis for this admission?: Yes (10) Depression Is this a current diagnosis for this admission?: Yes - Additional Information Resuscitation Status: Full Code Discharge Diet: Cardiac, Diabetic Discharge Activity: Activity As Tolerated, Balance Activity w/Rest Prescriptions: Sulfamethoxazole/Trimethoprim [Bactrim Ds Tablet] 1 each PO BID 5 Days #5 tablet Home Medications: Acidoph/L.bulg/Bif.b/S.thermop [Bacid Caplet] 1 each PO DAILY 12/06/18 Aspirin [Ecotrin 81 mg EC Tablet] 81 mg PO DAILY 12/06/18 Atorvastatin Calcium [Lipitor 80 mg Tablet] 80 mg PO QHS 12/06/18 Carvedilol [Coreg 12.5 mg Tablet] 12.5 mg PO QHS 12/06/18 Docusate Sodium [Colace 100 mg Capsule] 100 mg PO DAILY 12/06/18 Gabapentin [Neurontin 300 mg Capsule] 600 mg PO Q12 12/06/18 Glyburide [Diabeta 5 mg Tablet] 5 mg PO QAM 12/06/18 Insulin Glargine,Hum.rec.anlog [Lantus Insulin 100 Unit/1 ml 10 ml] 55 unit SUBCUT QHS 12/06/18 Lisinopril [Prinivil 2.5 mg Tablet] 2.5 mg PO DAILY 12/06/18 Metformin HCl [Glucophage 500 mg Tablet] 500 mg PO WLUNCH 12/06/18 Omeprazole 20 mg PO BID 12/06/18 Vit 40/Iron/Folic/Dha [ Multivitamin-Dha Sfgl] 1 each PO DAILY 12/06/18 Ranolazine [Ranexa 500 mg Tab.sr] 500 mg PO Q12 12/06/18 Sulfamethoxazole/Trimethoprim [Bactrim Ds Tablet] 1 each PO BID 5 Days #5 tablet 12/07/18 History of Present Illness History of Present Illness: KYLIE ROBERSON III is a 58 year old male past medical history of CAD status post CABG 2007, uncontrolled diabetes with diabetic neuropathy, hypertension, CKD, presenting to ED after an episode of presyncope. Patient was at his PCP office for evaluation of scrotal swelling when he decided to use the restroom, noted to be constipated, had to push very hard to have a bowel movement he suddenly felt lightheaded with blurry vision and became diaphoretic. The episode lasted several seconds, did not pass out, once he recovered he went back to the waiting room notified his doctor and EMS was called. After evaluated by EMS he was found to have systolic blood pressure of 60. Was started on IV fluids and brought to ED. He denies having any syncope, recent volume depletion, was doing fine before going to see his PCP except for scrotal swelling and pain, denies any fever, chills, nausea, vomiting, diarrhea. For the last 3 days he has noted left scrotal swelling and erythema which has progressed to involve the base of his penis. He complains of pressure-like feeling when urinating otherwise denies any dysu edel, hesitancy, urgency, frequency, or any penile discharge. In ED he was started on empiric IV antibiotics, surgery was consulted and plan is for I&D tomorrow morning. Hospitalist was consulted for admission. Hospital Course Hospital Course: (1) Abscess of scrotal wall Day 4 status post I&D by surgery. Wound culture growing MSSA. Received 4 days of antibiotics inpatient. Discharged to continue Bactrim for another 5 days. Total of 10 days. Received 1 dose of p.o. Bactrim. Received 3 days of IV antibiotics. Received 3 days of IV vancomycin. Received 3 days of IV Zosyn. Discharged home tomorrow to follow-up with surgery in 1 week [facility]. An appointment was made. (2) Vasovagal near syncope Resolved. Vitals WNL. Denies any recurrence. Most likely vasovagal presyncope. Patient denies passing out. Was started on volume resuscitation guided by volume status. Added to telemetry and vitals monitored. Started on fall, aspiration, seizure precautions. Notes. 12/04/2017. Patient had a mechanical fall while taking a shower. Stating that he was washing his feet, and the floor was to slippery, and he got up he slipped. He did not have any syncope, presyncope, head trauma, or any focal neurological symptoms. Post fall examination negative. Negative for any focal neuro deficits. (3) Uncontrolled diabetes mellitus Admits to noncompliance. 09/09/2018 hemoglobin A1c 6.1. Diabetic diet, sliding scale insulin, pre-meal insulin, long-acting insulin, Accu-Chek, hypoglycemia protocol. Dosage adjusted. Restarted home meds upon discharge. Encouraged to follow-up with PCP. (4) Hyperlipidemia Restarted on home meds. Diet and lifestyle modification recommended. (5) CAD (coronary artery disease) Status post CABG 2007. Denies any anginal symptoms. Started on antiplatelets, beta-blockers, KADY, statins. Outpatient PCP and cardiology follow-up. (6) AICD (automatic cardioverter/defibrillator) present As above. Outpatient PCP and cardiology follow-up. (7) Acute renal failure Resolved. Baseline 1.4. Likely due to uncontrolled diabetes. Nonoliguric. Monitor volume status and electrolytes. Avoided nephrotoxic meds. BMP daily. (8) Constipation Resolved. Likely medication induced. Bowel regimen started. Encourage ambulation, high-fiber diet, rehydration. (9) Diabetic neuropathy Restarted home meds. Advised on good control of blood sugars. Advised on frequent inspection of bilateral lower extremity for any wounds or ulcers. Patient is wearing diabetic shoes. (10) Depression Chronic. Denies any SI/HI. Not taking any meds. Outpatient PCP and psychiatry follow-up. Physical Exam Vital Signs: Temp Pulse Resp BP Pulse Ox 97.7 F 70 18 139/74 H 97 12/07/18 14:23 12/07/18 14:23 12/07/18 14:23 12/07/18 14:23 12/07/18 14:23 General appearance: PRESENT: no acute distress, well-developed, well-nourished Head exam: PRESENT: atraumatic, normocephalic Eye exam: PRESENT: conjunctiva pink, EOMI, PERRLA. ABSENT: scleral icterus Ear exam: PRESENT: normal external ear exam Mouth exam: PRESENT: moist, tongue midline Neck exam: ABSENT: carotid bruit, JVD, lymphadenopathy, thyromegaly Respiratory exam: PRESENT: clear to auscultation linda. ABSENT: rales, rhonchi, wheezes Cardiovascular exam: PRESENT: RRR. ABSENT: diastolic murmur, rubs, systolic murmur Pulses: PRESENT: normal dorsalis pedis pul Vascular exam: PRESENT: normal capillary refill GI/Abdominal exam: PRESENT: normal bowel sounds, soft. ABSENT: distended, guarding, mass, organolmegaly, rebound, tenderness Rectal exam: PRESENT: deferred Extremities exam: PRESENT: full ROM. ABSENT: calf tenderness, clubbing, pedal edema Neurological exam: PRESENT: alert, awake, oriented to person, oriented to place, oriented to time, oriented to situation, CN II-XII grossly intact. ABSENT: motor sensory deficit Psychiatric exam: PRESENT: appropriate affect, normal mood. ABSENT: homicidal ideation, suicidal ideation Skin exam: PRESENT: dry, intact, warm. ABSENT: cyanosis, rash Results Laboratory Results: 12/07/18 04:31 12/07/18 04:31 12/03/18 12/03/18 11:40 11:40 Creatine Kinase 51 L CK-MB (CK-2) 0.91 Troponin I < 0.012 Impressions: Chest X-Ray 12/03/18 13:05 IMPRESSION: Cardiomegaly without acute abnormality of the lungs. Qualifiers - * PATIENT BEING DISCHARGED WITH ANY OF THE FOLLOWING DIAGNOSIS: No Acute Heart Failure - Is this a Heart Failure Patient?: No
== END 2018-12-07 15:20 | disposition home health service (06) | DRG 717 ==
LOC: ER 12:14 → EH 15:06 → 5 17:59
PROVIDERS: ADMIT Internal Medicine; ATTEND Internal Medicine
PROC: 0VB50ZZ Excision of Scrotum, Open Approach (ICD-10-PCS; principal; 2018-12-04 13:00)
DX: N49.2 Inflammatory disorders of scrotum (principal); N17.9 Acute kidney failure, unspecified; I25.10 Atherosclerotic heart disease of native coronary artery without angina pectoris; E78.5 Hyperlipidemia, unspecified; E11.22 Type 2 diabetes mellitus with diabetic chronic kidney disease; E11.42 Type 2 diabetes mellitus with diabetic polyneuropathy; I12.9 Hypertensive chronic kidney disease with stage 1 through stage 4 chronic kidney disease, or unspecified chronic kidney disease; N18.9 Chronic kidney disease, unspecified; F32.9 Major depressive disorder, single episode, unspecified; E11.65 Type 2 diabetes mellitus with hyperglycemia; K59.03 Drug induced constipation; R55 Syncope and collapse; I25.2 Old myocardial infarction; Z95.810 Presence of automatic (implantable) cardiac defibrillator; Z82.49 Family history of ischemic heart disease and other diseases of the circulatory system; Z79.4 Long term (current) use of insulin; Z95.1 Presence of aortocoronary bypass graft; Z91.14 Patient's other noncompliance with medication regimen; Z91.81 History of falling; Z79.82 Long term (current) use of aspirin; Z79.899 Other long term (current) drug therapy
CPT/HCPCS: 36415; 71046; 80048; 80053; 80202; 81001; 82550; 82553; 82565; 82962; 83605; 84484; 85025; 85610; 87040; 87070; 87075; 87077; 87186; 87205; 920; 93005; 93010; 99285; A6266; J1650; J1815; J2250; J2543; J2704; J3010; J3370; J3490; J7030; J7050; J7060

== ENCOUNTER 2019-07-12 16:11 | Emergency (ER) | payer MEDICARE ==
--- NOTE | 2019-07-12 17:00 | ER Document Report ---
ED General - General Stated Complaint: CHEST DISCOMFORT Time Seen by Provider: 07/12/19 16:59 Primary Care Provider: ROMINA NICOLE MD [Primary Care Provider] - Follow up as needed Information source: Patient, Relative TRAVEL OUTSIDE OF THE [place] IN LAST 30 DAYS: No - HPI Onset: This morning Onset/Duration: Gradual Quality of pain: Pressure Severity: Moderate Pain Level: 2 Associated symptoms: Shortness of breath, Weakness Exacerbated by: Other - exertion Relieved by: Denies Similar symptoms previously: Yes - patient was just admitted last week at [facility] for the same symptoms Recently seen / treated by doctor: Yes - patient just admitted last week for the same. Notes: 59 year old male with a history of CAD s/p CABG in 2007 and Defibrillator placed in 2014, HTN, HLD, Depression here for chest pressure, shortness of breath, palpitations, and weakness which started this morning around 10am. The patient says he was just admitted at [facility] in [place] for the same issue. The patient apparently was at a doctors office today and he had an EKG done showing possible Atrial Flutter so he was sent to the ER. The patient told nursing he had no complaints but to me he told me what was stated above. - Related Data Allergies/Adverse Reactions: No Known Allergies Allergy (Verified 05/27/18 11:15) Past Medical History - General Information source: Patient, Relative - Social History Smoking Status: Never Smoker Frequency of alcohol use: None Drug Abuse: None Family History: CAD Patient has suicidal ideation: No Patient has homicidal ideation: No - Past Medical History Cardiac Medical History: Reports: Hx Coronary Artery Disease, Hx Heart Attack - 2007, TRIPLE BYPASS, DEFIB PLACEMENT 2014, Hx Hypercholesterolemia, Hx Hypertension Pulmonary Medical History: Denies: Hx Asthma, Hx Bronchitis, Hx COPD, Hx Pneumonia Neurological Medical History: Denies: Hx Cerebrovascular Accident, Hx Seizures Endocrine Medical History: Reports: Hx Diabetes Mellitus Type 1, Hx Diabetes Mellitus Type 2 - metformin and Lantus Renal/ Medical History: Denies: Hx Peritoneal Dialysis GI Medical History: Denies: Hx Hepatitis, Hx Hiatal Hernia, Hx Ulcer Musculoskeletal Medical History: Denies Hx Arthritis Psychiatric Medical History: Reports: Hx Depression Infectious Medical History: Denies: Hx Hepatitis Past Surgical History: Reports: Hx Cardiac Catheterization - CABG, Hx Cardiac Surgery - open heart - triple bypass 2007, Hx Coronary Artery Bypass Graft, Hx Open Heart Surgery - 11/2007, Hx Orthopedic Surgery - left hand. Denies: Hx Pacemaker - Immunizations Hx Diphtheria, Pertussis, Tetanus Vaccination: Yes - 2016 Review of Systems - Review of Systems Constitutional: Weakness EENT: No symptoms reported Cardiovascular: Chest pain, Heart racing, Dizziness Respiratory: Short of breath Gastrointestinal: No symptoms reported Genitourinary: No symptoms reported Male Genitourinary: No symptoms reported Musculoskeletal: No symptoms reported Skin: No symptoms reported Hematologic/Lymphatic: No symptoms reported Neurological/Psychological: No symptoms reported -: Yes All other systems reviewed and negative Physical Exam - Vital signs Vitals: Resp Pulse Ox 16 100 07/12/19 16:17 07/12/19 16:17 - Notes Notes: GENERAL: Chronically ill-appearing, well-nourished and in no acute distress. HEAD: Atraumatic, normocephalic. EYES: Pupils equal round and reactive to light, extraocular movements intact, sclera anicteric, conjunctiva are normal. ENT: TMs normal, nares patent, oropharynx clear without exudates. Moist mucous membranes. NECK: Normal range of motion, supple without lymphadenopathy or JVD. LUNGS: Breath sounds clear to auscultation bilaterally and equal. No wheezes rales or rhonchi. HEART: Tachycardic with a regular rhythm without murmurs, rubs or gallops. ABDOMEN: Soft, nontender, normoactive bowel sounds. No guarding, no rebound. No masses appreciated. EXTREMITIES: Normal range of motion, no pitting or edema. No clubbing or cyanosis. NEUROLOGICAL: Cranial nerves II through XII grossly intact. Normal speech, normal gait. PSYCH: Normal mood, normal affect. SKIN: Warm, Dry, normal turgor, no rashes or lesions noted. Course - Vital Signs Vital signs: Temp Pulse Resp BP Pulse Ox 98.2 F 23 H 125/89 H 93 07/12/19 16:18 07/13/19 00:01 07/13/19 00:01 07/13/19 00:01 - Laboratory Result Diagrams: 07/12/19 16:30 07/12/19 16:30 Laboratory results interpreted by me: 07/12/19 07/12/19 07/12/19 16:30 16:30 16:30 RBC 3.98 L Hgb 11.8 L Hct 34.7 L RDW 14.5 H PT 15.6 H VBG pH Sodium 136.8 L BUN 34 H Creatinine 1.56 H Est GFR ( Amer) 55 L Est GFR (MDRD) Non-Af 45 L Glucose 202 H POC Glucose Creatine Kinase 30 L NT-Pro-B Natriuret Pep 07/12/19 07/12/19 07/12/19 16:30 18:00 22:22 RBC Hgb Hct RDW PT VBG pH 7.44 H Sodium BUN Creatinine Est GFR ( Amer) Est GFR (MDRD) Non-Af Glucose POC Glucose 142 H Creatine Kinase NT-Pro-B Natriuret Pep 3070 H - EKG Interpretation by Me EKG shows normal: Sinus rhythm, [place], Intervals When compared to previous EKG there are: Changes noted - T wave inversions in V3-V6 Additional EKG results interpreted by me: 07/12/19 17:04 T wave inversions in V3-V6, I, II Discharge - Discharge Clinical Impression: Tachycardia Chest pain Qualifiers: Chest pain type: unspecified Qualified Code(s): R07.9 - Chest pain, unspecified Heart failure Qualifiers: Heart failure type: other Qualified Code(s): I50.89 - Other heart failure; I50.8 - Other heart failure Condition: Stable Disposition: HOME, SELF-CARE Instructions: Chest Pain of Unclear Cause ([facility]), Sinus Tachycardia ([facility]) Additional Instructions: Follow up with your Trauma Registrar and your primary care doctor. You have been having off and on chest pains and your heart rate has been elevated as of late. You should have an outpatient cardiac stress test. Tell your doctors you had a negative CTA of your chest at [facility] to rule out a pulmonary embolism and you had 2 negative Troponins in the [place] ER. Continue taking your home medications as previously prescribed. Referrals: ROMINA NICOLE MD [Primary Care Provider] - Follow up as needed
--- NOTE | 2019-07-12 17:09 | EKG REPORT ---
SEVERITY:- ABNORMAL ECG - SINUS TACHYCARDIA FIRST DEGREE AV BLOCK PROBABLE LEFT ATRIAL ABNORMALITY ABNORMAL T, CONSIDER ISCHEMIA, LATERAL LEADS BORDERLINE PROLONGED QT INTERVAL : Confirmed by: Magalie Mott MD 12-Jul-2019 17:07:52
[2019-07-12 17:52] LABS: ABSOLUTE BASOPHILS # (AUTO) 0.1 10^3/uL (0.0-0.2); ABSOLUTE EOSINOPHILS # (AUTO) 0.2 10^3/uL (0.0-0.6); ABSOLUTE LYMPHOCYTES (AUTO) 1.3 10^3/uL (0.5-4.7); ABSOLUTE MONOCYTES (AUTO) 0.7 10^3/uL (0.1-1.4); ABSOLUTE NEUT (AUTO) 4.6 10^3/uL (1.7-8.2); BASOPHILS % (AUTO) 0.8 % (0-2); EOSINOPHILS % (AUTO) 2.7 % (0-6); HEMATOCRIT 34.7 % (37.9-51.0); HEMOGLOBIN 11.8 g/dL (13.5-17.0); LYMPHOCYTES % (AUTO) 18.9 % (13-45); MEAN CORPUSCULAR HEMOGLOBIN 29.7 pg (27.0-33.4); MEAN CORPUSCULAR HGB CONC 34.1 g/dL (32.0-36.0); MEAN CORPUSCULAR VOLUME 87 fl (80-97); MONOCYTES % (AUTO) 10.3 % (3-13); PLATELET COUNT 238 10^3/uL (150-450); RED BLOOD COUNT 3.98 10^6/uL (4.35-5.55); RED CELL DISTRIBUTION WIDTH 14.5 % (11.5-14.0); SEGMENTED NEUTROPHILS % (AUTO) 67.3 % (42-78); TOTAL CELLS COUNTED % (AUTO) 100 %; WHITE BLOOD COUNT 6.8 10^3/uL (4.0-10.5)
[2019-07-12 17:57] LABS: INTERNATIONAL RATION (INR) 1.23; PROTHROMBIN TIME 15.6 SEC (11.4-15.4)
[2019-07-12 18:06] LABS: ALBUMIN 3.6 g/dL (3.5-5.0); ALKALINE PHOSPHATASE 106 U/L (38-126); ANION GAP 11 (5-19); ASPARTATE AMINO TRANSFERASE 43 U/L (17-59); BILIRUBIN,DIRECT 0.3 mg/dL (0.0-0.4); BILIRUBIN,TOTAL 0.8 mg/dL (0.2-1.3); BLOOD UREA NITROGEN 34 mg/dL (7-20); CALCIUM 8.9 mg/dL (8.4-10.2); CARBON DIOXIDE 27 mmol/L (22-30); CHLORIDE 99 mmol/L (98-107); CREATINE KINASE 30 U/L (55-170); GLUCOSE 202 mg/dL (75-110); POTASSIUM 4.7 mmol/L (3.6-5.0); TOTAL PROTEIN 6.9 g/dL (6.3-8.2)
--- NOTE | 2019-07-12 18:06 | RADIOLOGY REPORT (SQ) ---
EXAM DESCRIPTION: CHEST 2 VIEWS COMPLETED DATE/TIME: 07/12/2019 5:45 pm REASON FOR STUDY: eval for chest pain and SOB COMPARISON: 12/03/2018 TECHNIQUE: Frontal and lateral radiographic views of the chest acquired. NUMBER OF VIEWS: Two view. LIMITATIONS: None. FINDINGS: LUNGS AND PLEURA: No pneumothorax. Mild basilar subsegmental atelectasis. No consolidati on or pleural effusion. MEDIASTINUM AND HILAR STRUCTURES: Stable. HEART AND VASCULAR STRUCTURES: Stable. BONES: No acute findings. HARDWARE: CABG. Cardiac defibrillator. OTHER: No other significant finding. IMPRESSION: Mild basilar subsegmental atelectasis. No consolidation or pleural effusion. TECHNICAL DOCUMENTATION: JOB ID: [id number] 2010 [employer]- All Rights Reserved Reading location - IP/workstation name: [email or web address]
[2019-07-12 18:12] LABS: VENOUS BLOOD BASE EXCESS 3.7 mmol/L; VENOUS BLOOD HCO3 28.1 mmol/L (20-32); VENOUS BLOOD PH 7.44 (7.30-7.42)
[2019-07-12 18:18] LABS: CREATINE KINASE MB 1.19 ng/mL (<4.55); TROPONIN I 0.024 ng/mL
[2019-07-12] MEDS ORDERED: INSULIN GLARGINE,HUM.REC.ANLOG 1,000 UNIT/10 ML VIAL SUBCUT ONE (22:13)
[2019-07-12] MEDS ORDERED: RANOLAZINE 500 MG TAB.SR.12H PO ONE (22:14)
[2019-07-13] MEDS ORDERED: METOPROLOL TARTRATE PF/INJ 5 MG/5 ML SDV IV ONE (01:21)
[2019-07-13 02:55] VITALS: BP 108/78
== END 2019-07-13 02:57 | disposition home or self-care (01) ==
LOC: ER 16:11
DX: R00.0 Tachycardia, unspecified (principal); R07.9 Chest pain, unspecified; I11.0 Hypertensive heart disease with heart failure; I50.89 Other heart failure; R06.02 Shortness of breath; R00.2 Palpitations; R53.1 Weakness; I25.10 Atherosclerotic heart disease of native coronary artery without angina pectoris; I25.2 Old myocardial infarction; E11.9 Type 2 diabetes mellitus without complications; Z79.84 Long term (current) use of oral hypoglycemic drugs; Z79.4 Long term (current) use of insulin
CPT/HCPCS: 93005; 99285; 96374; 36415; 82553; 82962; 82550; 83605; 85025; 85610; 80053; 84484; 82803; 83880; 71046; 93010; A9270 ×2; J3490; J1815